=== PATIENT | male | born 1965 | race Caucasian/White ===

== ENCOUNTER → 2020-06-22 10:10 | Outpatient (REF) | payer OTHER, SELFPAY | LOC: HO.SL 10:10 | PROVIDERS: PCP Internal Medicine Medical Oncology; Visit Provider Internal Medicine | DX: G47.33 Obstructive sleep apnea (adult) (pediatric) (principal) | CPT/HCPCS: 95806 ==

== ENCOUNTER → 2020-07-12 13:04 | Outpatient (BNVA) | payer OTHER, SELFPAY | PROVIDERS: PCP Internal Medicine Medical Oncology; Visit Provider Dietitian, Registered | DX: Z76.89 Persons encountering health services in other specified circumstances (principal) ==

== ENCOUNTER → 2020-07-14 10:46 | Outpatient (BNVA) | payer OTHER, SELFPAY | PROVIDERS: Visit Provider Internal Medicine | DX: F11.20 Opioid dependence, uncomplicated (principal) | CPT/HCPCS: 80305 ==

== ENCOUNTER → 2020-08-09 08:19 | Outpatient (BNVA) | payer OTHER, SELFPAY | PROVIDERS: Visit Provider Dietitian, Registered | DX: Z76.89 Persons encountering health services in other specified circumstances (principal) ==

== ENCOUNTER → 2020-08-10 11:34 | Outpatient (BNVA) | payer OTHER, SELFPAY | PROVIDERS: Visit Provider Physician Assistant | DX: Z76.89 Persons encountering health services in other specified circumstances (principal) ==

== ENCOUNTER → 2020-08-11 11:03 | Outpatient (BNVA) | payer OTHER, SELFPAY | PROVIDERS: Visit Provider Internal Medicine | DX: Z76.89 Persons encountering health services in other specified circumstances (principal) ==

== ENCOUNTER → 2020-08-30 08:41 | Outpatient (BNVA) | payer OTHER, SELFPAY | PROVIDERS: PCP Internal Medicine Medical Oncology; Referring Provider Internal Medicine Medical Oncology; Visit Provider Physician Assistant | DX: Z76.89 Persons encountering health services in other specified circumstances (principal) ==

== ENCOUNTER → 2020-09-01 13:47 | Outpatient (BNVA) | payer OTHER, SELFPAY | PROVIDERS: PCP Internal Medicine Medical Oncology; Visit Provider Physician Assistant | DX: Z76.89 Persons encountering health services in other specified circumstances (principal) ==

== ENCOUNTER → 2020-09-08 08:20 | Outpatient (BNVA) | payer OTHER, SELFPAY | PROVIDERS: Visit Provider Physician Assistant | DX: Z76.89 Persons encountering health services in other specified circumstances (principal) ==

== ENCOUNTER → 2020-10-06 10:57 | Outpatient (BNVA) | payer OTHER, SELFPAY | PROVIDERS: Visit Provider Internal Medicine | DX: F11.99 Opioid use, unspecified with unspecified opioid-induced disorder (principal) ==

== ENCOUNTER → 2020-10-11 08:25 | Outpatient (BNVA) | payer OTHER, SELFPAY | PROVIDERS: Visit Provider Dietitian, Registered ==

== ENCOUNTER → 2020-11-02 08:22 | Outpatient (BNVA) | payer OTHER, SELFPAY | PROVIDERS: Visit Provider Physician Assistant ==

== ENCOUNTER → 2020-11-03 10:55 | Outpatient (BNVA) | payer OTHER, SELFPAY | PROVIDERS: PCP Internal Medicine Medical Oncology; Visit Provider Internal Medicine | DX: F11.99 Opioid use, unspecified with unspecified opioid-induced disorder (principal) ==

== ENCOUNTER → 2020-11-08 08:54 | Outpatient (BNVA) | payer OTHER, SELFPAY | PROVIDERS: PCP Internal Medicine Medical Oncology; Visit Provider Dietitian, Registered ==

== ENCOUNTER → 2020-11-12 08:28 | Outpatient (BNVA) | payer OTHER, SELFPAY | PROVIDERS: PCP Internal Medicine Medical Oncology; Visit Provider Physician Assistant ==

== ENCOUNTER → 2020-12-01 11:10 | Outpatient (BNVA) | payer OTHER, SELFPAY | PROVIDERS: PCP Internal Medicine Medical Oncology; Visit Provider Internal Medicine ==

== ENCOUNTER → 2020-12-31 10:57 | Outpatient (BNVA) | payer OTHER, SELFPAY | PROVIDERS: PCP Internal Medicine Medical Oncology; Visit Provider Internal Medicine | DX: Z51.81 Encounter for therapeutic drug level monitoring (principal) | CPT/HCPCS: 80305 ==

== ENCOUNTER → 2021-01-28 11:01 | Outpatient (BNVA) | payer OTHER, SELFPAY | PROVIDERS: PCP Internal Medicine Medical Oncology; Visit Provider Internal Medicine | DX: Z51.81 Encounter for therapeutic drug level monitoring (principal) | CPT/HCPCS: 80305 ==

== ENCOUNTER → 2021-02-03 10:40 | Outpatient (BNVA) | payer OTHER, SELFPAY | PROVIDERS: PCP Internal Medicine Medical Oncology; Visit Provider Surgery ==

== ENCOUNTER → 2021-02-25 09:37 | Outpatient (BNVA) | payer OTHER, SELFPAY | PROVIDERS: PCP Internal Medicine Medical Oncology; Visit Provider Internal Medicine ==

== ENCOUNTER → 2021-03-15 12:33 | Outpatient (BNVA) | payer OTHER, SELFPAY | PROVIDERS: PCP Internal Medicine Medical Oncology; Visit Provider Physician Assistant ==

== ENCOUNTER → 2021-03-28 11:34 | Outpatient (BNVA) | payer OTHER, SELFPAY | PROVIDERS: PCP Internal Medicine Medical Oncology; Visit Provider Internal Medicine | DX: F11.99 Opioid use, unspecified with unspecified opioid-induced disorder (principal) | CPT/HCPCS: 80305 ==

== ENCOUNTER 2021-03-29 14:29 | Outpatient (REF) | payer OTHER, SELFPAY ==
[2021-03-30 13:51] LABS: H Pylori Breath Test NOT DETECTED (NOT DETECTED)
== END 2021-03-29 14:30 | disposition home or self-care (01) ==
LOC: HO.LNP 14:29
PROVIDERS: PCP Internal Medicine Medical Oncology; Visit Provider Surgery
DX: Z01.818 Encounter for other preprocedural examination (principal); E66.01 Morbid (severe) obesity due to excess calories; Z68.42 Body mass index [BMI] 45.0-49.9, adult; Z71.3 Dietary counseling and surveillance
CPT/HCPCS: 83013

== ENCOUNTER → 2021-04-14 12:33 | Outpatient (BNVA) | payer OTHER, SELFPAY | PROVIDERS: PCP Internal Medicine Medical Oncology; Visit Provider Physician Assistant ==

== ENCOUNTER → 2021-04-25 11:56 | Outpatient (BNVA) | payer OTHER, SELFPAY | PROVIDERS: PCP Internal Medicine Medical Oncology; Visit Provider Internal Medicine | DX: F11.99 Opioid use, unspecified with unspecified opioid-induced disorder (principal) | CPT/HCPCS: 80305 ==

== ENCOUNTER → 2021-04-26 13:50 | Outpatient (BNVA) | payer OTHER, SELFPAY | PROVIDERS: PCP Internal Medicine Medical Oncology; Visit Provider Surgery ==

== ENCOUNTER 2021-05-09 10:02 | Outpatient (REF) | payer OTHER, SELFPAY ==
--- NOTE | ~2021-05-09 | XR_ITS ---
EXAMINATION: XR CHEST CLINICAL INFORMATION: Shortness of breath. COMPARISON: 09/02/2014 chest radiographs. TECHNIQUE: 2 views of the chest were obtained. FINDINGS: No significant abnormality is noted involving the heart, lungs, mediastinum, bony thorax or soft tissues. An anteroinferior cervical spine fusion plate appears intact. XR/XR chest 2V IMPRESSION: No acute cardiopulmonary process.
--- NOTE | 2021-05-09 10:45 | ECG_ITS ---
Test Reason : SOB Blood Pressure : / mmHG Vent. Rate : 051 BPM Atrial Rate : 051 BPM P-R Int : 192 ms QRS Dur : 110 ms QT Int : 456 ms P-R-T Axes : 042 024 007 degrees QTc Int : 420 ms Sinus bradycardia Otherwise normal ECG When compared with ECG of 02-SEP-2014 23:03, Vent. rate has decreased BY 25 BPM Referred By: Aurora Sosa Electronically Signed By:GLENDA RAND
[2021-05-09 11:31] LABS: MANUAL DIFF FLAG NO
[2021-05-09 11:44] LABS: Basophils Percent Auto 0.4 % (0-2); Eosinophils Absolute Auto 0.2 X10*3/uL (0.0-0.4); Hematocrit 37.9 % (42-52); Imm Gran Abs Auto 0.02 X10*3/uL (0.00-0.03); Imm Gran Pct Auto 0.4 % (0.0-0.4); Lymphocytes Absolute Auto 1.2 X10*3/uL (1.2-4.9); Lymphocytes Percent Auto 23.4 % (20-40); Mean Corpuscular HGB Conc 31.7 g/dl (31.0-36.0); Mean Corpuscular Hemoglobin 26.8 pg (27.0-33.0); Mean Corpuscular Volume 84.8 fL (80-98); Mean Platelet Volume 10.2 fL (9.4-12.4); Monocytes Absolute Auto 0.4 X10*3/uL (0.1-1.2); Monocytes Percent Auto 7.5 % (2-11); Neutrophils Absolute Auto 3.4 X10*3/uL (2.0-8.3); Neutrophils Percent Auto 64.3 % (45-73); Platelet Count 210 X10*3/uL (160-400); Red Blood Count 4.47 X10*6/uL (4.60-5.80); Red Cell Distribution Width 14.1 % (11.0-16.0); White Blood Count 5.2 X10*3/uL (4.8-10.8)
[2021-05-09 11:59] LABS: Alanine Aminotransferase 9 U/L (0-40); Albumin Level 4.2 g/dL (3.5-5.0); Alkaline Phosphatase 55 U/L (39-117); Anion Gap 14 (12-20); Aspartate Amino Transferase 13 U/L (5-37); Bilirubin Total 0.5 mg/dL (0.0-1.0); Blood Urea Nitrogen 18 mg/dL (9-16); C Reactive Protein 0.63 mg/dL (< or = 0.50); Calcium 9.5 mg/dL (8.4-10.2); Carbon Dioxide 27 mmol/L (22-29); Chloride 102 mmol/L (96-108); Cholesterol 172 mg/dL; Estimated Average Glucose 157 mg/dL; Estimated Glomerular Filt Rate > 60; Glucose Fasting 128 mg/dL (60-99); HDL Cholesterol 31 mg/dL; Hemoglobin A1c % 7.1 %; Iron 52 mcg/dL (45-160); LDL Cholesterol Calculated 114 mg/dl; Potassium 4.8 mmol/L (3.3-5.1); Sodium 138 mmol/L (135-145); Total Protein 6.9 g/dL (6.5-8.0); Triglycerides 135 mg/dL
[2021-05-09 12:15] LABS: Thyroid Stimulating Hormone 2.27 uIU/mL (0.32-4.0)
[2021-05-09 12:33] LABS: Vitamin B12 < 146 pg/mL (200-900)
[2021-05-10 16:11] LABS: Calcium (PTHI) 9.4 mg/dL (8.6-10.3); PTHI 69 pg/mL (14-64)
[2021-05-11 15:09] LABS: Percent Iron Saturation 16 % (15-50); Total Iron Binding Capacity 332 mcg/dL (228-428); Unsaturated Iron Binding 280 ug/dL
[2021-05-11 23:10] LABS: Zinc 70 mcg/dL (60-130)
[2021-05-14 00:41] LABS: Vitamin A 39 mcg/dL (38-98)
[2021-05-14 12:31] LABS: Vitamin B1 <6 nmol/L (8-30)
== END 2021-05-09 10:03 | disposition home or self-care (01) ==
LOC: HO.LAB 10:02
PROVIDERS: PCP Internal Medicine Medical Oncology; Visit Provider Surgery
DX: Z01.818 Encounter for other preprocedural examination (principal); E66.01 Morbid (severe) obesity due to excess calories; K91.2 Postsurgical malabsorption, not elsewhere classified; R06.02 Shortness of breath; G47.33 Obstructive sleep apnea (adult) (pediatric); Z91.14 Patient's other noncompliance with medication regimen; Z90.3 Acquired absence of stomach [part of]
CPT/HCPCS: 36415; 71046; 80053; 80061; 82306; 82607; 83036; 83540; 83970; 84425; 84443; 84590; 84630; 85025; 86140; 93005

== ENCOUNTER → 2021-05-31 12:57 | Outpatient (BNVA) | payer OTHER, SELFPAY | PROVIDERS: PCP Internal Medicine Medical Oncology; Referring Provider Internal Medicine Medical Oncology; Visit Provider Surgery | DX: Z01.818 Encounter for other preprocedural examination (principal); E51.9 Thiamine deficiency, unspecified; E55.9 Vitamin D deficiency, unspecified ==

== ENCOUNTER 2021-06-20 10:59 | Outpatient (REF) | payer OTHER, SELFPAY ==
[2021-06-20 18:38] LABS: Fentanyl, urine Not Detected (Not Detect)
== END 2021-06-20 11:00 | disposition home or self-care (01) ==
LOC: HO.LNP 10:59
PROVIDERS: Visit Provider Internal Medicine
DX: F11.20 Opioid dependence, uncomplicated (principal); Z79.899 Other long term (current) drug therapy
CPT/HCPCS: 80307

== ENCOUNTER → 2021-07-06 10:57 | Outpatient (BNVA) | payer OTHER, SELFPAY | PROVIDERS: Visit Provider Internal Medicine | DX: E66.01 Morbid (severe) obesity due to excess calories (principal); G47.33 Obstructive sleep apnea (adult) (pediatric); F11.90 Opioid use, unspecified, uncomplicated | CPT/HCPCS: 80305 ==

== ENCOUNTER → 2021-09-07 10:29 | Outpatient (BNVA) | payer OTHER, SELFPAY | PROVIDERS: PCP Internal Medicine Medical Oncology; Visit Provider Internal Medicine | DX: F11.20 Opioid dependence, uncomplicated (principal); Z51.81 Encounter for therapeutic drug level monitoring; Z79.899 Other long term (current) drug therapy | CPT/HCPCS: 80305 ==

== ENCOUNTER 2021-10-04 14:09 | Outpatient (REF) | payer OTHER, SELFPAY ==
[2021-10-04 16:24] LABS: Vitamin D 25-OH Total 20.7 ng/mL (>30)
[2021-10-09 06:16] LABS: Vitamin B1 6 nmol/L (8-30)
== END 2021-10-04 14:10 | disposition home or self-care (01) ==
LOC: HO.LAB 14:09
PROVIDERS: Absent Provider Surgery; PCP Internal Medicine Medical Oncology; Visit Provider Internal Medicine
DX: Z01.818 Encounter for other preprocedural examination (principal); E66.01 Morbid (severe) obesity due to excess calories; G47.33 Obstructive sleep apnea (adult) (pediatric); E55.9 Vitamin D deficiency, unspecified; E51.9 Thiamine deficiency, unspecified; Z79.899 Other long term (current) drug therapy; Z87.891 Personal history of nicotine dependence; Z91.14 Patient's other noncompliance with medication regimen
CPT/HCPCS: 36415; 82306; 84425

== ENCOUNTER → 2021-10-26 10:52 | Outpatient (BNVA) | payer OTHER, SELFPAY | PROVIDERS: PCP Internal Medicine Medical Oncology; Visit Provider Physician Assistant Surgical ==

== ENCOUNTER → 2021-11-08 15:48 | Outpatient (BNVA) | payer OTHER, SELFPAY | PROVIDERS: PCP Internal Medicine Medical Oncology; Visit Provider Internal Medicine | DX: F11.11 Opioid abuse, in remission (principal); Z51.81 Encounter for therapeutic drug level monitoring; Z79.899 Other long term (current) drug therapy | CPT/HCPCS: 80305 ==

== ENCOUNTER → 2021-11-28 09:01 | Outpatient (BNVA) | payer OTHER, SELFPAY | PROVIDERS: PCP Internal Medicine Medical Oncology; Visit Provider Surgery | DX: E66.01 Morbid (severe) obesity due to excess calories (principal); E55.9 Vitamin D deficiency, unspecified; R60.0 Localized edema; G47.33 Obstructive sleep apnea (adult) (pediatric); Z79.899 Other long term (current) drug therapy; Z71.3 Dietary counseling and surveillance; Z87.891 Personal history of nicotine dependence | CPT/HCPCS: 99212 ==

== ENCOUNTER 2021-12-12 08:56 | Outpatient (REF) | payer OTHER, SELFPAY ==
--- NOTE | ~2021-12-12 | FL_ITS ---
PROCEDURE: XR FLUOROSCOPY UPPER GI WITH AIR CLINICAL INFORMATION: Thiamine deficiency. COMPARISON: None TECHNIQUE: Routine upper GI air-contrast study was performed in upright and lying position. FINDINGS: Following oral administration of thick barium and effervescent granules there is normal propagation of bolus from the oral cavity through the pharynx, esophagus into stomach without any evidence of obstruction, narrowing or stricture. On placing patient supine and prone lying, the course, caliber and peristalsis of the stomach, duodenal bulb and the sweep is normal. The mucosal pattern of the stomach and the duodenum is normal. No gastroesophageal reflux or hiatal hernia seen. FLUOROSCOPY TIME: 1.2 minutes. DOSE AREA PRODUCT: 45.911 uGy-m2 (microgray-meter squared). FL/FL upper GI w air IMPRESSION: Unremarkable upper GI air-contrast study.
--- NOTE | ~2021-12-12 | US_ITS ---
EXAMINATION: US COMPLETE ABDOMEN WITH LIVER ELASTOGRAPHY CLINICAL INFORMATION: Obesity. COMPARISON: None. TECHNIQUE: Real-time imaging of the abdominal viscera. Noninvasive ultrasound liver fibrosis assessment is performed using Jonathan ElastPQ point quantification shear wave elastography (2D-SWE) with a C5-2 MHz transducer. Multiple elastography samples are obtained. FINDINGS: PANCREAS: The pancreas is obscured overlying gas. ABDOMINAL AORTA: The distal abdominal aorta is of normal caliber. The proximal and mid abdominal aorta are not well-visualized. INFERIOR VENA CAVA: Visualized portions are normal. LIVER: Normal. The liver demonstrates normal size, contour and increased echogenicity. No focal lesion or intrahepatic biliary duct dilatation. The right lobe measures 1.79 cm in length. The left lobe measures 11.8 cm in length. Portal flow is hepatopedal. Shear wave liver elastography median stiffness is 3.54 m/s (reference: normal median stiffness is 1.3 m/s or less). IQR/median stiffness to assess sampling precision is 0.47 (reference: good quality data set is IQR/median stiffness of 0.15 or less). GALLBLADDER: Gallbladder wall thickness is 0.23. The gallbladder is physiologically distended without evidence of stones, sludge, polyps, wall thickening or pericholecystic fluid. COMMON BILE DUCT: Normal in caliber measuring 0.35 cm in diameter. RIGHT KIDNEY: Normal. No hydronephrosis. No renal calculi or focal parenchymal lesions. The kidney measures 13.7 cm in maximum dimension. LEFT KIDNEY: Normal. No hydronephrosis. No renal calculi or focal parenchymal lesions. The kidney measures 12.4 cm in maximum dimension. SPLEEN: Normal. The spleen measures 11.3 cm in maximum dimension. FREE FLUID: None. US/US abdomen comp w elastography IMPRESSION: 1. Mildly increased hepatic echotexture. No focal lesion seen. Rest of the abdominal ultrasound is unremarkable. 2. Liver elastography: Elevated median liver stiffness of 3.54. However the IQR median is elevated and unreliable. REFERENCE: Society of Radiologists in Ultrasound Liver Stiffness Thresholds (2020): LIVER STIFFNESS THRESHOLDS: *Liver Stiffness equal or less than 1.3 m/s: High probability of being normal. *Liver Stiffness less than 1.7 m/s: In the absence of other known clinical signs, rules out compensated advanced chronic liver disease. *Liver Stiffness 1.7-2.1 m/s: Suggestive of compensated advanced chronic liver disease but need further test for confirmation. *Liver Stiffness over 2.1 m/s: Rules in compensated advanced chronic liver disease. *Liver Stiffness over 2.4 m/s: Suggestive of clinically significant portal hypertension. QUALITY OF DATA SET: *IQR/Median value equal or less than 0.15 implies a quality data set. *IQR/Median value over 0.15 implies a poor quality data set. SIGNIFICANT CHANGE FROM PRIOR EXAM: Significant change if liver stiffness measurement is 10% or greater from prior exam. OTHER CONSIDERATIONS: The stage of liver fibrosis may be overestimated in the setting of acute hepatitis, liver inflammation, elevated liver function tests, hepatic vascular congestion, obstructive cholestasis, non-fasting state, and infiltrative diseases such as amyloidosis and lymphoma. In some patients with NAFLD, the liver stiffness thresholds for compensated advanced chronic liver disease may be lower. In causes other than viral hepatitis and NAFLD, liver stiffness thresholds are not well established.
== END 2021-12-12 08:57 | disposition home or self-care (01) ==
LOC: HO.US 08:56
PROVIDERS: Visit Provider Surgery
DX: Z01.818 Encounter for other preprocedural examination (principal); E51.9 Thiamine deficiency, unspecified; E55.9 Vitamin D deficiency, unspecified; E66.01 Morbid (severe) obesity due to excess calories; E11.9 Type 2 diabetes mellitus without complications; E78.5 Hyperlipidemia, unspecified; G47.33 Obstructive sleep apnea (adult) (pediatric); I10 Essential (primary) hypertension; K21.9 Gastro-esophageal reflux disease without esophagitis; Z68.41 Body mass index [BMI] 40.0-44.9, adult; Z79.899 Other long term (current) drug therapy; Z87.891 Personal history of nicotine dependence
CPT/HCPCS: 74246; 76705; 76981

== ENCOUNTER 2021-12-13 10:27 | Outpatient (REF) | payer OTHER, SELFPAY ==
[2021-12-13 11:45] LABS: MANUAL DIFF FLAG NO
[2021-12-13 11:59] LABS: Basophils Absolute Auto 0.1 X10*3/uL (0.0-0.2); Basophils Percent Auto 0.9 % (0-2); Eosinophils Absolute Auto 0.2 X10*3/uL (0.0-0.4); Eosinophils Percent Auto 3.4 % (0-4); Hematocrit 38.8 % (42.0-52.0); Hemoglobin 12.5 g/dl (14.0-18.0); Imm Gran Abs Auto 0.02 X10*3/uL (0.00-0.03); Imm Gran Pct Auto 0.4 % (0.0-0.4); Lymphocytes Percent Auto 17.7 % (20-40); Mean Corpuscular HGB Conc 32.2 g/dl (31.0-36.0); Mean Corpuscular Hemoglobin 27.7 pg (27.0-33.0); Mean Platelet Volume 9.7 fL (9.4-12.4); Monocytes Absolute Auto 0.5 X10*3/uL (0.1-1.2); Monocytes Percent Auto 8.3 % (2-11); Neutrophils Absolute Auto 3.8 x10*3/uL (2.0-8.3); Neutrophils Percent Auto 69.3 % (45-73); Platelet Count 236 X10*3/uL (160-400); Red Blood Count 4.51 X10*6/uL (4.60-5.80); Red Cell Distribution Width 12.8 % (11.0-16.0); White Blood Count 5.5 X10*3/uL (4.8-10.8)
[2021-12-13 12:12] LABS: Prothrombin Time 11.5 SEC (9.9-13.0)
[2021-12-13 12:14] LABS: Partial Thromboplastin Time 37.5 SEC (24.1-38.0)
[2021-12-13 12:20] LABS: Estimated Average Glucose 157 mg/dL; Hemoglobin A1c % 7.1 %
[2021-12-13 12:27] LABS: Alanine Aminotransferase 11 U/L (0-40); Albumin Level 4.4 g/dL (3.5-5.0); Alkaline Phosphatase 51 U/L (39-117); Anion Gap 13 (12-20); Aspartate Amino Transferase 14 U/L (5-37); Bilirubin Total 0.9 mg/dL (0.0-1.0); Blood Urea Nitrogen 16 mg/dL (9-16); Calcium 9.7 mg/dL (8.4-10.2); Carbon Dioxide 28 mmol/L (22-29); Chloride 100 mmol/L (96-108); Cholesterol 180 mg/dL; Estimated Glomerular Filt Rate > 60; Glucose Random 200 mg/dL (60-115); HDL Cholesterol 37 mg/dL; LDL Cholesterol Calculated 121 mg/dl; Potassium 4.6 mmol/L (3.3-5.1); Sodium 136 mmol/L (135-145); Total Protein 7.1 g/dL (6.5-8.0); Triglycerides 110 mg/dL
[2021-12-13 12:48] LABS: Vitamin D 25-OH Total 38.2 ng/mL (>30)
[2021-12-13 12:54] LABS: TSH reflex Free T4 1.35 uIU/mL (0.32-4.0)
[2021-12-13 13:03] LABS: Folate 13.4 ng/mL (> or = 4.0); Vitamin B12 < 146 pg/mL (200-900)
[2021-12-13 16:41] LABS: Insulin 14 uU/mL (2-29)
[2021-12-19 11:56] LABS: Vitamin B1 7 nmol/L (8-30)
[2021-12-20 00:57] LABS: Vitamin A 62 mcg/dL (38-98)
== END 2021-12-13 10:28 | disposition home or self-care (01) ==
LOC: HO.LAB 10:27
PROVIDERS: Physician Assistant Surgical; PCP Internal Medicine Medical Oncology; Referring Provider Internal Medicine Medical Oncology; Visit Provider Surgery
DX: I10 Essential (primary) hypertension (principal); E66.01 Morbid (severe) obesity due to excess calories; G47.33 Obstructive sleep apnea (adult) (pediatric); E11.9 Type 2 diabetes mellitus without complications; E78.5 Hyperlipidemia, unspecified; E51.9 Thiamine deficiency, unspecified; E55.9 Vitamin D deficiency, unspecified; Z68.41 Body mass index [BMI] 40.0-44.9, adult
CPT/HCPCS: 36415; 80053; 80061; 82306; 82607; 82746; 83036; 83525; 84425; 84443; 84590; 85025; 85610; 85730; 86140

== ENCOUNTER 2021-12-20 06:11 | Inpatient (IN) | payer OTHER, SELFPAY ==
[2021-12-15 10:05] VITALS: BMI 40.4
--- NOTE | 2021-12-15 13:09 | HO.ANESPROP2 ---
Documented by User: Doretha Williamson NP 12/15/21 13:13 HPI - Anesthesia Eval Consult details Narrative: 56yo M for Gastrectomy Sleeve,EGD,poss diaphragmatic hernia,poss ventral hernia,poss open, Suboxone (24mg) daily for hx of OUD. Pt awaiting dosing instructions from Dr Poe. [facility] Active Problems Active Problems: All Active Problems (Updated 12/15/21 @ 10:04 by Brandee Courtney, SHENG) BMI 40.0-44.9, adult (Acute) Shortness of breath (Acute) Preoperative examination (Acute) Vitamin D deficiency (Acute) Vitamin B1 deficiency (Acute) Morbid obesity with BMI of 40.0-44.9, adult (Acute) Major depression, chronic (Acute) Opioid use disorder, mild, in sustained remission, on maintenance therapy, abuse (Acute) Lower extremity edema (Acute) Hyperlipidemia (Acute) Hypertension (Acute) Benign prostatic hyperplasia (Acute) Depression (Acute) Migraine (Acute) Type 2 diabetes mellitus (Acute) Noncompliance with CPAP treatment (Acute) Morbid obesity (Acute) BMI 45.0-49.9, adult (Acute) AUDRA (obstructive sleep apnea) (Acute) Past Medical History Medical History (Updated 12/15/21 @ 10:04 by Brandee Courtney RN) Anxiety Benign prostatic hyperplasia BMI 45.0-49.9, adult DDD (degenerative disc disease), cervical Depression Hyperlipidemia Hypertension Lower extremity edema Migraine Morbid obesity Noncompliance with CPAP treatment Occasional tremors AUDRA (obstructive sleep apnea) Shortness of breath Type 2 diabetes mellitus Family History Family History (Updated 11/23/21 @ 10:22 by Mercedes Shaw LPN) Father Diabetes Mother Diabetes Sister No problems noted. Sister Depression Sister No problems noted. Son No problems noted. Son No problems noted. Daughter No problems noted. Surgical History Surgical History (Updated 12/15/21 @ 10:04 by Brandee Courtney RN) History of colonoscopy Hx of knee surgery Hx of neck surgery Hx of shoulder surgery S/P appendectomy Social History Social History (Updated 11/23/21 @ 10:19 by Mercedes Shaw LPN) Are you a primary animal care worker to a significant other at home: No Do you presently have visiting nurse or other home services: No Alcohol intake: current Alcohol intake frequency: does not drink Patient Tobacco Use Status: Former Tobacco user Quit Date: 2016 Tobacco use type: Cigarette e-Cigarette/Vaping Use: Currently Using Have you been hit, kicked, punched, or otherwise hurt by someone within the past year? If so, by whom?: No Are you DNR?: No Advance Directives: No Advance Directives Information Provided: Yes Advance Directives on File: No Recently lost weight without trying: No Poor oral hygiene: No Meds Allergies Allergy/AdvReac Type Severity Reaction Status Date / Time Seasonal Allergies Allergy Intermediate Runny Nose Verified 12/12/21 11:40 Home Medications Medication Instructions Recorded Confirmed Last Taken Type blood sugar diagnostic #10 ea 07/14/20 12/12/21 Unknown History blood-glucose meter #1 ea 07/14/20 12/12/21 Unknown History citalopram 40 mg tablet 40 mg PO DAILY 07/14/20 12/15/21 12/20/21 04:00 History glyburide 5 mg tablet 5 mg PO BID 07/14/20 12/15/21 Unknown History lamotrigine 100 mg tablet 100 mg PO DAILY 07/14/20 12/15/21 12/20/21 04:00 History lisinopril 2.5 mg tablet 2.5 mg PO DAILY 07/14/20 12/15/21 12/20/21 04:00 History metoprolol succinate 100 mg 100 mg PO DAILY 07/14/20 12/15/21 12/20/21 04:00 History tablet,extended release 24 hr simvastatin 20 mg tablet 20 mg PO DAILY 07/14/20 12/15/21 12/20/21 04:00 History tamsulosin 0.4 mg capsule 0.4 mg PO DAILY 07/14/20 12/15/21 Unknown History bupropion HCl 150 mg 24 hr tablet, 450 mg PO DAILY tab 02/03/21 12/15/21 Unknown History extended release metformin 500 mg tablet 1,000 mg PO BID tab 02/03/21 12/15/21 Unknown History sumatriptan succinate 100 mg tablet 100 mg PO Q2-4H PRN 02/03/21 12/15/21 Unknown History Exam Exam Date and Time: December 15, 2021 1309 Height,Weight and Vital Signs: Height 5 ft 11 in Weight 131.542 kg Pertinent Lab Results Pertinent Lab Results: Laboratory Tests 12/13/21 11:40 Blood Type O Positive Antibody Screen NEGATIVE Laboratory Tests 12/13/21 12/13/21 11:44 11:44 WBC 5.5 Hgb 12.5 L Hct 38.8 L Plt Count 236 Sodium 136 Potassium 4.6 Chloride 100 Carbon Dioxide 28 BUN 16 Creatinine 0.93 Narrative Narrative: EKG 04/2021 Vent. Rate : 051 BPM ? ? Atrial Rate : 051 BPM ?? P-R Int : 192 ms? QRS Dur : 110 ms ? ? QT Int : 456 ms ? ? ? P-R-T Axes : 042 024 007 degrees ?? QTc Int : 420 ms ? Sinus bradycardia Otherwise normal ECG When compared with ECG of 02-SEP-2014 23:03, Vent. rate has decreased BY? 25 BPM Assessment and Plan Assessment Anesthesia Assessment: Chart Reviewed Documented by User: Inocente Marks MD 12/20/21 07:11 [facility] Past Medical History Medical History (Updated 12/15/21 @ 10:04 by Brandee Courtney RN) Anxiety Benign prostatic hyperplasia BMI 45.0-49.9, adult DDD (degenerative disc disease), cervical Depression Hyperlipidemia Hypertension Lower extremity edema Migraine Morbid obesity Noncompliance with CPAP treatment Occasional tremors AUDRA (obstructive sleep apnea) Shortness of breath Type 2 diabetes mellitus Family History Family History (Updated 11/23/21 @ 10:22 by Mercedes Shaw LPN) Father Diabetes Mother Diabetes Sister No problems noted. Sister Depression Sister No problems noted. Son No problems noted. Son No problems noted. Daughter No problems noted. Family history of problems with anesthesia: No Surgical History Surgical History (Updated 12/15/21 @ 10:04 by Brandee Courtney RN) History of colonoscopy Hx of knee surgery Hx of neck surgery Hx of shoulder surgery S/P appendectomy History of Problems with Anesthesia: No Social History Social History (Updated 11/23/21 @ 10:19 by Mercedes Shaw LPN) Are you a primary animal care worker to a significant other at home: No Do you presently have visiting nurse or other home services: No Alcohol intake: current Alcohol intake frequency: does not drink Patient Tobacco Use Status: Former Tobacco user Quit Date: 2016 Tobacco use type: Cigarette e-Cigarette/Vaping Use: Currently Using Have you been hit, kicked, punched, or otherwise hurt by someone within the past year? If so, by whom?: No Are you DNR?: No Advance Directives: No Advance Directives Information Provided: Yes Advance Directives on File: No Recently lost weight without trying: No Poor oral hygiene: No Meds Allergies Allergy/AdvReac Type Severity Reaction Status Date / Time Seasonal Allergies Allergy Intermediate Runny Nose Verified 12/12/21 11:40 Home Medications Medication Instructions Recorded Confirmed Last Taken Type blood sugar diagnostic #10 ea 07/14/20 12/12/21 Unknown History blood-glucose meter #1 ea 07/14/20 12/12/21 Unknown History citalopram 40 mg tablet 40 mg PO DAILY 07/14/20 12/15/21 12/20/21 04:00 History glyburide 5 mg tablet 5 mg PO BID 07/14/20 12/15/21 Unknown History lamotrigine 100 mg tablet 100 mg PO DAILY 07/14/20 12/15/21 12/20/21 04:00 History lisinopril 2.5 mg tablet 2.5 mg PO DAILY 07/14/20 12/15/21 12/20/21 04:00 History metoprolol succinate 100 mg 100 mg PO DAILY 07/14/20 12/15/21 12/20/21 04:00 History tablet,extended release 24 hr simvastatin 20 mg tablet 20 mg PO DAILY 07/14/20 12/15/21 12/20/21 04:00 History tamsulosin 0.4 mg capsule 0.4 mg PO DAILY 07/14/20 12/15/21 Unknown History bupropion HCl 150 mg 24 hr tablet, 450 mg PO DAILY tab 02/03/21 12/15/21 Unknown History extended release metformin 500 mg tablet 1,000 mg PO BID tab 02/03/21 12/15/21 Unknown History sumatriptan succinate 100 mg tablet 100 mg PO Q2-4H PRN 02/03/21 12/15/21 Unknown History Exam Airway Mallampati Class: III TM Dist: >3cm Neck ROM: Full Loose/Missing/Broken Teeth: No (no losse but poor dentition) Heart: rrr+[id number] Lungs: cta b/l Assessment and Plan Assessment Anesthesia Assessment: Anesthesia Plan Discussed Final Anesthetic Review Family History of Problems with Anesthesia: No History of Problems with Anesthesia: No NPO: Yes ASA Class: III Final Preanesthetic Review: No Changes in Pt Med Stat, Meds/Allgs Chart Reviewed, Consent Obtained/Reviewed and Anes Risks/Benef Reviewed Patient Risk: Intermediate Procedure Risk: Intermediate Assessment/Block/Sedation in SS: Assess/Block/Sedation-SS Anesthetic Plan Anesthetic Plan: GA and Agree w/ Assess. and Plan Disposition: Standard PACU
--- NOTE | 2021-12-16 23:40 | MHC.SHP ---
Pre-Procedural Eval Section A Date of Service: 12/16/21 The patient is an INPATIENT: No The History & Physical has been completed within 30 days and I have reviewed it.: Yes Section B Chief Complaint: obesity Relevant Family History (Specify if Yes): No Relevant Social History: None Present Medications: None Medical History: No relevant PMH Allergies: Allergies Allergy/AdvReac Type Severity Reaction Status Date / Time Seasonal Allergies Allergy Intermediate Runny Nose Verified 12/12/21 11:40 Review of Systems Sugical H&P ROS: Negative: Constitution, Cardiovascular, Respiratory, Neurological, Psychiatric, Hem-Onc, Allergic/Immunologic, Gastrointestinal, Genitourinary, Musculoskeletal, Integumentary, Endocrine and Eyes/Ears/Nose/Throat Exam Surgical H&P Exam: Normal: HEENT, Normal: Heart, Normal: Lungs, Normal: Extremities, Normal: Abdomen, Normal: Skin and Normal: Neurological Plan Diagnosis/Plan: Unchanged I have reviewed the history and physical and performed a pertinent physical examination on my patient. No changes have occurred unless specified.
[2021-12-19 16:38] LABS: COVID-19 Test Negative (Negative); IDNOW Serial# 16C4AD1C
[2021-12-20] VITALS (21 sets, daily range): BP systolic 111–164; BP diastolic 63–91; PULSE 67–97; RESP 13–22; TEMP 36.1–36.9; O2SAT 92–99
[2021-12-20 06:21] LABS: Glucose, Whole Blood 168 mg/dL (60-115)
[2021-12-20] MEDS: Lactated Ringers 1,000 ML 100 ML IVCONT ×2 (06:39→12:16)
[2021-12-20] MEDS: Lactated Ringers 1,000 ML 999 ML IV (06:39)
[2021-12-20] MEDS: ceFAZolin Sodium/Dextrose,Iso 2 GM/50 ML PIGGYBACK IV ×2 (08:01→14:14)
--- NOTE | 2021-12-20 10:28 | P.DS_ITS ---
DS: Providers Provider Date of Service: 12/21/21 Date of admission: 12/20/21 06:11 Primary care physician: Azael Benton MD DS: Summary Hospital Course Hospital Course: ADMITTING DIAGNOSIS: morbid obesity, HTN, AUDRA, DM, hyperlipidemia, migraines, hx of opiod dependence DISCHARGE DIAGNOSIS: same, s/p laparoscopic sleeve gastrectomy PAST SURGICAL HISTORY: multiple orthopedic surgeries, appendectomy PROCEDURE: upper endoscopy, laparoscopic sleeve gastrectomy DISCHARGE SUMMARY: History of Present Illness: The patient is a 56 year-old man with a BMI of 45.5 kg/m2 and associated co- morbidities as described above. The patient had extensive work-up,lost 32 lbs preoperatively and was electively scheduled for laparoscopic, possible open sleeve gastrectomy and gastropexy. Risks and complications of the surgery were discussed with the patient in advance, particularly the possibility of , pulmonary embolism, anastomotic leak, bleeding, bowel injury, GERD, cardiac, renal or pulmonary complications. The patient understood all the risks and was in agreement with the surgical plan. Hospital Course: The patient underwent an uneventful laparoscopic sleeve gastrectomy with gastropexy on the day of admission. Postoperatively, the patient was transferred to the surgical floor. The patient received IV Acetaminophen and IV dilaudid for pain control. Patient was started on bariatric phase 1 diet POD #0. On postoperative day one, the patient was feeling well without nausea, vomiting, fevers, or tachycardia. The patient had some mild incisional pain and the abdomen was soft. On the morning of postoperative day one, the patient was continued on 1 ounce of water or ice every half hour. During the day, the patient did fairly well, having some incisional pain, but able to ambulate adequately and to tolerate liquids well. Since the patient is doing well, we decided that the patient was ready to be discharged. The patient was given instructions to follow-up with me next week and to call my office for any fever over 101, persistent abdominal pain, nausea, vomiting, GERD, symptoms of DVT such as calf tenderness, or leg swelling, or pulmonary embolism such as chest pain or shortness of breath. The patient was also instructed to drink 40-60 ounces of liquids per day using the 1-ounce cups. The patient had been given prescriptions for Tylenol for pain, Zofran prn for nausea, and pantoprazole and carafate previously. The patient was encouraged to ambulate and use the incentive spirometer. The patient was allowed to shower, but no baths, and encouraged to stay active at home. All of these instructions were given to the patient personally. All questions were answered and the patient understood all instructions, the instructions were also given to the patient in print. Time Spent with Patient Time attestation: Total time spent providing and/or coordinating discharge services: Discharge coordination time: Less than 30 minutes Quality: Safe Use of Opioids Does Pt have an Active Cancer Diagnosis on the Problem List?: No Quality: Stroke Does the patient have a stroke diagnosis?: No Physical Exam Vital Signs: Vital Signs: Last Vital Signs Temp 97 F 12/20/21 06:16 Pulse 68 12/20/21 06:16 Resp 18 12/20/21 06:16 BP 111/71 12/20/21 06:16 Pulse Ox 94 12/20/21 06:16 BMI result Body Mass Index 40.4 DS: Data Data Completed and Pending Pending studies at discharge: Pending at discharge 12/20/21 09:39 Surgical [PTH] Routine Labs on day of discharge: Laboratory Results - last 24 hr 12/19/21 12/20/21 16:05 06:18 POC Glucose 168 H COVID-19 ([facility]) Negative COVID-19 Clin Com See Note Discharge Plan Discharge Anticipated Discharge Date/Time: 12/21/21 10:23 Patient Disposition: Home, Self-Care Discharge Diagnosis: s/p sleeve gastrectomy Referrals: Azael Benton MD [Primary Care Provider] - 1 Week Discharge Medications: Continued sumatriptan succinate 100 mg tablet 100 mg PO Q2-4H PRN (Reason: Headache) 0RF Rx Instructions: do not exceed 2 doses per 24 hrs metoprolol succinate 100 mg tablet extended release 24 hr 100 mg PO DAILY 0RF lamotrigine 100 mg tablet 100 mg PO DAILY 0RF lisinopril 2.5 mg tablet 2.5 mg PO DAILY 0RF simvastatin 20 mg tablet 20 mg PO DAILY 0RF citalopram 40 mg tablet 40 mg PO DAILY 0RF tamsulosin 0.4 mg capsule 0.4 mg PO DAILY 0RF (DME) blood-glucose meter Kit See Rx Instructions ea .ROUTE .MEDSUPPLY Qty: 1 0RF Rx Instructions: As directed (DME) blood sugar diagnostic Strip See Rx Instructions strip Not Applicable BID Qty: 10 0RF Rx Instructions: As directed bupropion HCl 150 mg tablet extended release 24 hr 450 mg PO DAILY 0RF buprenorphine-naloxone [Suboxone] 8-2 mg film 3 film sublingual DAILY 30 Days Qty: 90 1RF Rx Instructions: JC Number; [id number] pantoprazole 40 mg tablet,delayed release (DR/EC) 40 mg PO DAILY Qty: 30 2RF sucralfate 100 mg/mL suspension 10 ml PO BID Qty: 400 2RF ondansetron HCl 4 mg tablet 4 mg PO Q12H Qty: 20 0RF Held glyburide 5 mg tablet 5 mg PO BID 0RF Hold Instructions: Discuss with Dr Kay metformin 500 mg tablet 1,000 mg PO BID 0RF Hold Instructions: Discuss with Dr Kay hydrochlorothiazide 12.5 mg capsule 12.5 mg PO DAILY Qty: 30 2RF Hold Instructions: Discuss with Dr Kay Discontinued mecobalamin (vitamin B12) 1,000 mcg tablet,disintegrating 1,000 mcg sublingual DAILY Qty: 30 0RF Rx Instructions: place tablet under tongue and allow to dissolve for at least30 secs before swallowing thiamine HCl (vitamin B1) 100 mg tablet 100 mg PO DAILY Qty: 30 0RF cholecalciferol (vitamin D3) 1,250 mcg (50,000 unit) capsule 1,250 mcg PO QWEEK Qty: 4 1RF polyethylene glycol 3350 [Miralax] 17 gram powder in packet 17 g PO DAILY Qty: 14 0RF Rx Instructions: Mix each packet with 8oz of water and do 7 packets on 12/20/21 and another 7 packets on 12/21/21 Discharge Orders: Discharge Order (Routine); Ordered 12/21/21 Ordered By: Vladimir Kay Diet: other Activity on Discharge: No heavy lifting Stand Alone Forms: Patient Portal Discharge page Care Plan Goals: weight loss Health Concerns: morbid obesity Plan of Treatment: No tub baths, sex or returning to work until discussed at first post op appointment. No exercise, alcohol, tobacco or illegal drug use. Continue to use incentive spirometer hourly while awake. Walk in home for 5- 10 minutes every 2 hours during the first week. Continue phase 1 diet today and start phase 2 diet tomorrow morning. Follow all instructions in the bariatric handbook and call with any questions. 1. Please call your doctor or come back to the emergency room should any new symptoms arise. 2. You will receive a courtesy call from [facility] 24-48 hours after discharge. 3. Activity: abstain from alcohol, practice limited stair climbing, no bending, no driving, no exercise, no illicit substances, no lifting, no sex, no tub bath, no work. 4. Diet: continue as discussed with Dr. Kay. 5. Dressing Change/Wound Care: Do not change or remove surgical dressings unless they are wet or soiled. 6. Call your doctor if: - Your temperature exceeds 101.5 F - You experience excessive pain or swelling - You have an unexpected reaction to medication - You have excessive bleeding - You experience continued vomiting/nausea - Your incision begins to separate - Your incision shows signs of infection such as increased redness, swelling, excessive pain, heat, or drainage (light blood or clear fluid is normal) 7. General instructions: No lifting greater than 5 lbs for the next 4 weeks[address] driving within 24 hours of taking narcotic pain medications. If you do not move your bowels in the next 2 days, please take milk of magnesia over the counter. Please follow the post op diet and do not advance your diet until you are seen in the office in about 2 weeks. Please walk around your home every hour or two to prevent blood clots from forming in your legs. You do not need to wake from sleeping to walk. Please sleep in a bed or couch to prevent kinking at the hips and knees. Please take your incentive spirometer (your lung demonstrator electric gas appliances) home with you and use it for the next few days to prevent pneumonias. You may shower, no hot tubs, baths or swimming pools. Please call the office with any questions or concerns such as increasing abdominal pain, fever, chills, shortness of breath, chest pain, leg pain or swelling, or redness or drainage from your incisions. Do not hesitate to contact the office with any questions at . The patient's medical history has been reviewed and they are considered low risk for post op DVT and therefore DVT prophylaxis is not considered necessary. Travel after surgery was reviewed. The patient has not disclosed any travel plans during the first 30 days after surgery and they have been advised that within the first 30 days after surgery any bus, plane, train or car travel over 2 hours in duration is contraindicated due to the possibility of developing blood clots from immobility. Any travel, needs to include periods of ambulation of 10 minutes in duration every 2 hours. The patient was instructed to discuss any plans for travel during this period with their bariatric surgeon. Assessment: stable, post op sleeve gstrectomy
--- NOTE | 2021-12-20 10:32 | P.BOP_ITS ---
Brief Operative Note Date of Service: 12/20/21 Pre-op diagnosis: Morbid obesity and comorbidities (see below) Post-op diagnosis: same Procedure: INITIAL PATIENT BMI ON PRESENTATION AT OUR OFFICE: 45.3 kg/m2 LAST BMI BEFORE SURGERY: 40.2 kg/m2 COMORBIDITIES: sleep apnea on CPAP, non-insulin dependent diabetes, hypertension, BPH, depression, liver steatosis, hyperlipidemia, migraines, DJD, liver fibrosis ?The patient presented to the Weight Management Program with significant obesity that was negatively impacting the patient's comorbidities as listed above.? The program is a phased program with a special focus on preoperative medical weight management to promote substantial weight loss and prepare the patients for the second phase of the program: bariatric surgery. The patient participated in an intensive weekly lifestyle ?intervention and exercise program during which the patient ?has lost between the initial office visit and the last preoperative visit 36.8lbs, or 11.33% of initial actual body weight. It was deemed appropria te for the patient to now have bariatric surgery. In light of the current Covid- 19 pandemic and the well documented strong association of obesity and increased risk of worse outcomes if infected with Covid-19 (REFERENCES: https://pubmed.ncbi.nlm.nih.gov/21399885/ ,? https://pubmed.ncbi.nlm.nih.gov/71495403/ ), any delay in undergoing bariatric surgery may lead to the patient's worsening health condition and increased?risk of more severe Covid-19 disease if infected. In addition a recent?study from [facility] published in [employer] [facility] on 09/12/2021 ([email or web address]) found that, among patients with obesity, substantial weight loss achieved with surgery was associated with improved outcomes of COVID-19 infection. The findings suggest that obesity can be a modifiable risk factor for the severity of COVID-19 infection. In addition, the patient met the BMI-criteria for bariatric surgery based on the BMI on initial presentation. The patient should not be penalized for achieving such weight loss because ?it is not sustainable long-term without surgical intervention and it was achieved in preparation for bariatric surgery ?under my direction and based on my published research ([email or web address]).[email or web address] and? https://ww w.soken.org/article/[email or web address](19)17417-X/pdf ) ?that a 10% preoperative weight loss improves long-term weight loss after surgery and reduces perioperative complications.? Insurance carriers such as [facility] have endorsed my recommendations ?and have included in their policies criteria to include a 10% preoperative weight loss requirement. PROCEDURE: Esophago-gastroscopy, laparoscopic sleeve gastrectomy and laparoscopic gastropexy INDICATIONS: This is a 56 year-old female who was electively scheduled for laparoscopic, possibly open sleeve gastrectomy. The risks and complications of the procedure were discussed with the patient in advance, particularly the possibility of ; pulmonary embolism; staple line leak; bleeding; GERD; cardiac, pulmonary, or renal complications; as well as long-term problems such as insufficient weight loss, vitamin deficiency, strictures, or ulcers. The patient understood all the risks, and was in agreement to proceed with surgery. DESCRIPTION OF PROCEDURE: After informed consent was obtained from the patient, the patient was given preoperative antibiotics, and was transferred to the operating room. After successful induction of general anesthesia, pneumatic compression devices were placed on both lower extremities. An upper endoscopy was performed next. The oropharynx and esophagus appeared to be within normal limits. There was no diaphragmatic hernia present consistent with the findings of the preoperative upper GI. The stomach was entered. Then after all fluid and air were suctioned and the stomach was fully decompressed, the scope was withdrawn and secured in the mid esophagus. The patient was then prepped and draped in the usual sterile manner, and abdominal access was established at the right upper quadrant with the Rachid te chnique. A 12 mm blunt port was inserted, and the abdomen was insufflated with CO2 to a pressure of 15 mmHg. Under direct visualization, additional ports were placed, specifically two 5 mm Versi-step ports to the left upper quadrant, and a 5 mm Versi-Step port to the right upper quadrant. 1% lidocaine plain was used to infiltrate all port sites as well as all fascia defects. Using the EndoClose suture passer device, I placed a #1 Polysorb tie across the falciform ligament in order to retract it up against the abdominal wall and prevent injury of the ligament with our instruments during the procedure. Following that, the patient was placed in a steep reverse Trendelenburg position. An additional 5 mm port was placed to the right flank for the Mediflex retractor that was used to retract the left lobe of the liver. The gastro-esophageal fat pad was opened with the ultrasonic device (Thunderbeat, Olympus) and the anterior esophagus and hiatus were exposed. The angle of His was opened with the ultrasonic device the fundus of the stomach from any diaphragmatic and splenic attachments. I then opened the gastrocolic ligament between the transverse colon and the greater curvature of the stomach with the ultrasonic device to enter the lesser sac and facilitate the ligation of the short gastric vessels. I started at a mid-point along the greater curvature and using the Thunderbeat, all short gastric vessels were divided all the way to the angle of His until the left isa was completely dissected at its entirety. I then divided the gastro-colic ligament distally to a distance of about 3-4 cm proximal to the pylorus. The stomach was then divided transversely with one Endo SIRI-45 purple, one SIRI- 60 purple load, one SIRI-45 orange load and three SIRI-60 articulating orange loads using the AEON stapler and loads. Every effort was made that the gastric sleeve had a tubular shape and an even caliber throughout. Once the sleeve resection was completed, the staple line of the gastric sleeve was reinforced with Hemoclips. The resected stomach was retrieved without difficulty from the Rachid port. A gastropexy was then performed in order to prevent postoperative GERD and partial gastric volvulus. Several interrupted 2.0 Surgidac sutures were placed between the sleeve's staple line and the previously divided greater omentum and gastro-colic ligament using the Endo-Stitch device. ?An upper endoscopy was performed. There was no narrowing at the GE junction. The scope was easily advanced all the way to the pylorus which was clearly visualized. There was no narrowing anywhere and the sleeve's caliber was even throughout. The sleeve's staple line was inspected and there was no evidence of ischemia, bleeding or dehiscence. At that point the gastroscope was withdrawn from the patient?s mouth while we were decompressing the bowel and the stomach from any remaining air. I looked into the lesser sac to see how the sleeve was situating and it was situating well. There was no bleeding from the staple line, spleen, or short gastric vessels. The Mediflex retractor was removed, and the undersurface of the liver was inspected and there was no bleeding. The patient was placed in supine position. I closed the fascial defect of the 12 mm port site with a figure of eight #1 Polysorb suture. Then 100 cc 0.25 % Marcaine plain with 10 mg of Dexamethasone were used to infiltrate the fascial closure as well as all skin incisions. At this point, the abdomen was deflated, all ports were removed under direct vision, and no bleeding was noted from any of the port sites. The skin incisions were irrigated with saline and were closed with 4-0 absorbable monofilament sutures. Steri-Strips and OpSites were used to cover all incisions. The patient was extubated and was transferred in stable condition to the recovery room for further care. I was present and performed all clark parts of the procedure. Ms. Gonzales was the certified surgical tech/first assistant. There were no residents to assist with this case. Misael Kay MD, PhD, FACS Surgeon: Vladimir Kay MD Anesthesia: GETA, local and other (TAP block) Was an Electrical Tests Supervisor used for this Procedure?: Yes Electrical Tests Supervisor: Lupe Gonzales Estimated blood loss (mL): 10 IV fluids (mL): 3,000 Urine output (mL): 0 (No Garcia to gravity) Pathology: other (Stomach) Condition: stable Disposition: PACU
--- NOTE | 2021-12-20 10:36 | PM.PNGS ---
Subjective Subjective Date of Service: 12/21/21 Interval history: Patient has mild incisional pain, but was able to ambulate and use the incentive spirometer. He is tolerating phase 1 bariatric diet Physical Exam Vital Signs: Vital Signs: Last Vital Signs Temp 97 F 12/20/21 06:16 Pulse 68 12/20/21 06:16 Resp 18 12/20/21 06:16 BP 111/71 12/20/21 06:16 Pulse Ox 94 12/20/21 06:16 BMI result Body Mass Index 40.4 GI: Inspection: Yes normal to inspection, Yes incision (clean, dry and intact) and Yes obesity Extrem: Right lower extremity: normal to inspection (no calf tenderness) Left lower extremity: normal to inspection (no calf tenderness) Objective Data Active Medications Famotidine (Famotidine/Pf 20 Mg/2 Ml Vial) 20 mg IVPUSH BID MAUREEN Fentanyl (Fentanyl Citrate/Pf 100 Mcg/2 Ml Vial) 50 mcg IVPUSH Q5M PRN; Protocol PRN Reason: Pain, Moderate (Pain Scale 4-6 Hydromorphone HCl (Hydromorphone Hcl 0.5 Mg/0.5 Ml Syringe) 0.5 mg IVPUSH Q5M PRN; Protocol PRN Reason: Pain, Severe (Pain Scale 7-10) Lactated Ringer's (Lr) 1,000 mls @ 100 mls/hr IVCONT .Q10H [facility] Last Admin: 12/20/21 06:39 Dose: 100 mls/hr Documented by: MUKUL Promethazine HCl 6.25 mg/ (Sodium Chloride) 50.25 mls @ 201 mls/hr IV ONCE PRN PRN Reason: Nausea and Vomiting Metoclopramide HCl (Metoclopramide Hcl 10 Mg/2 Ml Vial) 10 mg IVPUSH Q6H PRN PRN Reason: Nausea Ondansetron HCl (Ondansetron Hcl 4 Mg/2 Ml Vial) 4 mg IVPUSH ONCE PRN PRN Reason: Nausea and Vomiting Oxycodone HCl (Oxycodone Hcl Immed Release 5 Mg Tablet) 10 mg PO ONCE PRN PRN Reason: Pain, Mild (Pain Scale 1-3) Labs CBC & Chem 7: 12/21/21 05:56 12/21/21 05:56 Labs: Laboratory Results - last 24 hr 12/19/21 12/20/21 16:05 06:18 POC Glucose 168 H COVID-19 (JERI) Negative COVID-19 Clin Com See Note Procedures Date of Service Date of Service: 12/21/21 Progress Note: A&P Assessment and plan (1) S/P laparoscopic sleeve gastrectomy: Status: Acute Assessment and Plan: s/p laparoscopic sleeve gastrectomy and gastropexy Doing well Check am labs. If OK, will discharge home? (2) Morbid obesity: Status: Acute (3) AUDRA (obstructive sleep apnea): Status: Acute (4) Type 2 diabetes mellitus: Status: Acute (5) Migraine: Status: Acute (6) Depression: Status: Acute (7) Benign prostatic hyperplasia: Status: Acute (8) Hypertension: Status: Acute (9) Hyperlipidemia: Status: Acute (10) Lower extremity edema: (11) Major depression, chronic: Status: Acute (12) Steatosis, liver: Status: Acute (13) Liver fibrosis: Status: Acute Fall Risk Details Current Medications: Current Medications Famotidine (Famotidine/Pf 20 Mg/2 Ml Vial) 20 mg IVPUSH BID MAUREEN Fentanyl (Fentanyl Citrate/Pf 100 Mcg/2 Ml Vial) 50 mcg IVPUSH Q5M PRN; Protocol PRN Reason: Pain, Moderate (Pain Scale 4-6 Hydromorphone HCl (Hydromorphone Hcl 0.5 Mg/0.5 Ml Syringe) 0.5 mg IVPUSH Q5M PRN; Protocol PRN Reason: Pain, Severe (Pain Scale 7-10) Lactated Ringer's (Lr) 1,000 mls @ 100 mls/hr IVCONT .Q10H [facility] Last Admin: 12/20/21 06:39 Dose: 100 mls/hr Documented by: Promethazine HCl 6.25 mg/ (Sodium Chloride) 50.25 mls @ 201 mls/hr IV ONCE PRN PRN Reason: Nausea and Vomiting Metoclopramide HCl (Metoclopramide Hcl 10 Mg/2 Ml Vial) 10 mg IVPUSH Q6H PRN PRN Reason: Nausea Ondansetron HCl (Ondansetron Hcl 4 Mg/2 Ml Vial) 4 mg IVPUSH ONCE PRN PRN Reason: Nausea and Vomiting Oxycodone HCl (Oxycodone Hcl Immed Release 5 Mg Tablet) 10 mg PO ONCE PRN PRN Reason: Pain, Mild (Pain Scale 1-3) Time Spent With Patient Time: Total time spent is greater than 50% in coordination of care (as documented) at patient's floor/unit and/or counseling patient: Quality Stroke Does the patient have a stroke diagnosis?: No VTE Prior VTE?: No VTE Risk Level:: Surgical - moderate VTE Device Contraindication: N/A - Device Ordered VTE Drug Contraindication: Treatment Not Indicated
[2021-12-20] MEDS: HYDROmorphone HCl 0.5 MG/0.5 ML SYRINGE IVPUSH ×4 (10:40→11:10)
[2021-12-20 10:46] LABS: Hematocrit 33.2 % (42.0-52.0)
[2021-12-20] MEDS: Famotidine/PF 20 MG/2 ML VIAL IVPUSH ×2 (10:50→21:25)
[2021-12-20 11:02] LABS: Anion Gap 14 (12-20); Blood Urea Nitrogen 35 mg/dL (9-16); Calcium 9.4 mg/dL (8.4-10.2); Carbon Dioxide 24 mmol/L (22-29); Chloride 100 mmol/L (96-108); Creatinine Clr Calc Pharmacy 120.2; Estimated Glomerular Filt Rate > 60; Glucose Random 239 mg/dL (60-115); Potassium 4.6 mmol/L (3.3-5.1); Sodium 133 mmol/L (135-145)
--- NOTE | 2021-12-20 11:03 | PHA.MEDREC ---
Pharmacy Consult ? Medication Reconciliation Pharmacy has completed the medication reconciliation. DONE IN SSS AND DOUBLE CHECKED
[2021-12-20] MEDS: 0.9 % Sodium Chloride Flush 3 ML SYRINGE IVFLUSH (17:34)
[2021-12-20] MEDS: Tamsulosin HCL 0.4 MG CAPSULE PO (17:35)
[2021-12-20] MEDS: ondansetron HCL 4 MG/2 ML VIAL IVPUSH (17:35)
[2021-12-20] MEDS: buPROPion HCl XL 150 MG TAB.ER.24H 450 MG PO (17:35)
[2021-12-20 17:50] LABS: Glucose, Whole Blood 276 mg/dL (60-115)
[2021-12-20] MEDS: Insulin Lispro 100 UNIT/ML 3 ML VIAL SUBCUT ×2 (18:04→23:00)
[2021-12-20 22:58] LABS: Glucose, Whole Blood 218 mg/dL (60-115)
[2021-12-21] MEDS: ondansetron HCL 4 MG/2 ML VIAL IVPUSH (02:28)
[2021-12-21 02:33] LABS: Glucose, Whole Blood 202 mg/dL (60-115)
[2021-12-21] MEDS: Insulin Lispro 100 UNIT/ML 3 ML VIAL SUBCUT ×2 (02:36→06:22)
[2021-12-21 03:19] VITALS: BP 129/64; PULSE 68; RESP 18; TEMP 37.1; O2SAT 92
[2021-12-21 06:12] LABS: Glucose, Whole Blood 179 mg/dL (60-115)
[2021-12-21 06:16] LABS: MANUAL DIFF FLAG NO
[2021-12-21 06:30] LABS: Basophils Percent Auto 0.1 % (0-2); Hematocrit 32.5 % (42.0-52.0); Hemoglobin 10.6 g/dl (14.0-18.0); Imm Gran Abs Auto 0.04 X10*3/uL (0.00-0.03); Imm Gran Pct Auto 0.4 % (0.0-0.4); Lymphocytes Absolute Auto 0.6 X10*3/uL (1.2-4.9); Lymphocytes Percent Auto 6.8 % (20-40); Mean Corpuscular HGB Conc 32.6 g/dl (31.0-36.0); Mean Corpuscular Hemoglobin 27.7 pg (27.0-33.0); Mean Corpuscular Volume 85.1 fL (80.0-98.0); Mean Platelet Volume 10.2 fL (9.4-12.4); Monocytes Absolute Auto 0.9 X10*3/uL (0.1-1.2); Monocytes Percent Auto 10.3 % (2-11); Neutrophils Absolute Auto 7.5 x10*3/uL (2.0-8.3); Neutrophils Percent Auto 82.4 % (45-73); Platelet Count 217 X10*3/uL (160-400); Red Blood Count 3.82 X10*6/uL (4.60-5.80); Red Cell Distribution Width 12.9 % (11.0-16.0); White Blood Count 9.2 X10*3/uL (4.8-10.8)
[2021-12-21 06:35] LABS: Anion Gap 11 (12-20); Blood Urea Nitrogen 22 mg/dL (9-16); Calcium 9.2 mg/dL (8.4-10.2); Carbon Dioxide 25 mmol/L (22-29); Chloride 103 mmol/L (96-108); Creatinine Clr Calc Pharmacy 137.4; Estimated Glomerular Filt Rate > 60; Glucose Random 172 mg/dL (60-115); Potassium 5.2 mmol/L (3.3-5.1); Sodium 134 mmol/L (135-145)
[2021-12-21 07:12] VITALS: O2SAT 93
[2021-12-21 07:35] VITALS: BP 127/59; PULSE 65; RESP 18; TEMP 36.8; O2SAT 93
--- NOTE | 2021-12-21 08:34 | MHC.CM.PN ---
Patient has been medically cleared for dc to home today, self care.Patient lives in a house with his and 16 year old Son and he is functionally independent and working. PCP is Dr.Robert Benton and Patient has received Moderna/Covid vax X2.
[2021-12-21] MEDS: Tamsulosin HCL 0.4 MG CAPSULE PO (08:43)
[2021-12-21] MEDS: 0.9 % Sodium Chloride Flush 3 ML SYRINGE IVFLUSH (08:43)
[2021-12-21] MEDS: lamoTRIgine 100 MG TABLET PO (08:44)
[2021-12-21] MEDS: Metoprolol Succinate ER 100 MG TAB.ER.24H PO (08:44)
[2021-12-21] MEDS: lisinopriL 2.5 MG TABLET PO (08:44)
[2021-12-21] MEDS: Escitalopram Oxalate 20 MG TABLET PO (08:44)
--- NOTE | 2021-12-21 14:34 | HO.POSTANES ---
Post Anesthesia Evaluation Post Anesthesia Evaluation Vital Signs: Vital Signs Temp Pulse Resp BP Pulse Ox 12/21/21 07:35 98.3 F 65 18 127/59 L 93 12/21/21 07:12 93 12/21/21 03:19 98.8 F 68 18 129/64 92 Anesthesia: General Endotracheal-GETA Mental Status: Awake Pain Control: Satisfactory Nausea/Vomiting: None Hydration: Adequate Anesthesia-Related Issues: No Anes. Related Issues
== END 2021-12-21 10:05 | disposition home or self-care (01) | DRG 403 ==
LOC: HO.SSSA 06:25 → HO.S3 14:46
PROVIDERS: Physician Assistant; Physician Assistant Surgical; Admitting Provider Surgery; PCP Internal Medicine Medical Oncology; Visit Provider Surgery
PROC: 0DB64Z3 Excision of Stomach, Percutaneous Endoscopic Approach, Vertical (ICD-10-PCS; CPT 43845; principal; 2021-12-20 07:30)
DX: E66.01 Morbid (severe) obesity due to excess calories (principal); K74.00 Hepatic fibrosis, unspecified; E11.9 Type 2 diabetes mellitus without complications; E78.5 Hyperlipidemia, unspecified; F41.9 Anxiety disorder, unspecified; M50.30 Other cervical disc degeneration, unspecified cervical region; G47.33 Obstructive sleep apnea (adult) (pediatric); F32.A Depression, unspecified; N40.0 Benign prostatic hyperplasia without lower urinary tract symptoms; F11.20 Opioid dependence, uncomplicated; G43.909 Migraine, unspecified, not intractable, without status migrainosus; K76.0 Fatty (change of) liver, not elsewhere classified; Z68.41 Body mass index [BMI] 40.0-44.9, adult; Z99.89 Dependence on other enabling machines and devices; Z20.822 Contact with and (suspected) exposure to COVID-19; Z87.891 Personal history of nicotine dependence; Z79.84 Long term (current) use of oral hypoglycemic drugs; Z79.899 Other long term (current) drug therapy
CPT/HCPCS: 36415; 80048; 82947; 85014; 85018; 85025; 86850; 86900; 86901; 87635; 88307; 88342; 99024; A4649; J0131; J0690; J1100; J1170; J2250; J2405; J2550; J3010

== ENCOUNTER → 2021-12-27 14:51 | Outpatient (BNVA) | payer OTHER, SELFPAY | PROVIDERS: Visit Provider Surgery | DX: Z13.89 Encounter for screening for other disorder (principal) ==

== ENCOUNTER → 2021-12-29 14:05 | Outpatient (BNVA) | payer OTHER, SELFPAY | PROVIDERS: PCP Internal Medicine Medical Oncology; Visit Provider Internal Medicine | DX: Z13.89 Encounter for screening for other disorder (principal) ==

== ENCOUNTER → 2022-01-03 11:54 | Outpatient (BNVA) | payer OTHER, SELFPAY | PROVIDERS: PCP Internal Medicine Medical Oncology; Visit Provider Internal Medicine | DX: Z13.89 Encounter for screening for other disorder (principal) ==

== ENCOUNTER → 2022-01-26 08:09 | Outpatient (BNVA) | payer OTHER, SELFPAY | PROVIDERS: Visit Provider Physician Assistant | DX: E66.9 Obesity, unspecified (principal) ==

== ENCOUNTER → 2022-02-28 10:59 | Outpatient (BNVA) | payer OTHER, SELFPAY | PROVIDERS: PCP Internal Medicine Medical Oncology; Visit Provider Internal Medicine | DX: Z51.81 Encounter for therapeutic drug level monitoring (principal); F11.11 Opioid abuse, in remission | CPT/HCPCS: 80305 ==

== ENCOUNTER 2022-06-16 10:18 | Day surgery (SDC) | payer OTHER, SELFPAY ==
--- NOTE | 2022-06-15 09:49 | P.CONAN_ITS ---
Documented by User: Doretha Williamson NP 06/15/22 09:52 HPI - Anesthesia Eval Consult details Narrative: 56yo M for Colonoscopy Suboxone daily s/p gastric sleeve 12/2021 with GA-ETT 7.5 PMFSH Active Problems Active Problems: All Active Problems (Updated 06/01/22 @ 15:12 by MICK Flynn) Overweight (BMI 25.0-29.9) (Acute) Constipation (Acute) BMI 38.0-38.9,adult (Acute) Obesity (Acute) S/P laparoscopic sleeve gastrectomy (Acute) Liver fibrosis (Acute) Steatosis, liver (Acute) Morbid obesity with BMI of 40.0-44.9, adult (Acute) Major depression, chronic (Acute) Opioid use disorder, mild, in sustained remission, on maintenance therapy, abuse (Acute) Hyperlipidemia (Acute) Hypertension (Acute) Benign prostatic hyperplasia (Acute) Depression (Acute) Migraine (Acute) Type 2 diabetes mellitus (Acute) Noncompliance with CPAP treatment (Acute) Morbid obesity (Acute) BMI 45.0-49.9, adult (Acute) AUDRA (obstructive sleep apnea) (Acute) Past Medical History Medical History (Updated 06/16/22 @ 10:59 by Mera Damon RN) Anxiety Benign prostatic hyperplasia BMI 40.0-44.9, adult BMI 45.0-49.9, adult DDD (degenerative disc disease), cervical Depression Hyperlipidemia Hypertension Liver fibrosis Lower extremity edema Migraine Morbid obesity Noncompliance with CPAP treatment Occasional tremors AUDRA (obstructive sleep apnea) Preoperative examination Shortness of breath Shortness of breath Steatosis, liver Tremor Type 2 diabetes mellitus Vitamin B1 deficiency Vitamin D deficiency Family History Family History Father Diabetes Mother Diabetes Sister No problems noted. Sister Depression Sister No problems noted. Son No problems noted. Son No problems noted. Daughter No problems noted. Family history of problems with anesthesia: No Surgical History Surgical History History of colonoscopy Hx of knee surgery Hx of neck surgery Hx of shoulder surgery S/P appendectomy S/P laparoscopic sleeve gastrectomy History of Problems with Anesthesia: No Social History Social History Household Members: None Housing: Apartment Are you a primary continuum of care manager to a significant other at home: No Do you presently have visiting nurse or other home services: No Alcohol intake: current Alcohol intake frequency: does not drink Patient Tobacco Use Status: Former Tobacco user Quit Date: 5 years ago Tobacco use type: Cigarette e-Cigarette/Vaping Use: Currently Using Are you DNR?: No Advance Directives: No Advance Directives Information Provided: Yes service: No Current occupational status: employed Meds Allergies Allergy/AdvReac Type Severity Reaction Status Date / Time Seasonal Allergies Allergy Intermediate Runny Nose Verified 04/24/22 09:51 Home Medications Medication Instructions Recorded Confirmed Last Taken Type citalopram 40 mg tablet 40 mg PO DAILY 07/14/20 06/16/22 06/15/22 History lamotrigine 100 mg tablet 100 mg PO DAILY 07/14/20 06/16/22 06/15/22 History metoprolol succinate 100 mg 50 mg PO DAILY 07/14/20 06/16/22 06/15/22 History tablet,extended release 24 hr tamsulosin 0.4 mg capsule 0.4 mg PO DAILY 07/14/20 06/16/22 06/15/22 History bupropion HCl 150 mg 24 hr tablet, 450 mg PO DAILY 02/03/21 06/16/22 06/15/22 History extended release cholecalciferol (vitamin D3) 1,250 1,250 mcg PO QWEEK 12/29/21 06/16/22 06/15/22 History mcg (50,000 unit) capsule Exam Exam Date and Time: June 15, 2022 0949 Pertinent Lab Results Pertinent Lab Results: Laboratory Tests 12/21/21 12/21/21 05:56 05:56 WBC 9.2 Hgb 10.6 L Hct 32.5 L Plt Count 217 Sodium 134 L Potassium 5.2 H Chloride 103 Carbon Dioxide 25 BUN 22 H Creatinine 0.84 Narrative Narrative: EKG 04/2021 Vent. Rate : 051 BPM ? ? Atrial Rate : 051 BPM ?? P-R Int : 192 ms? QRS Dur : 110 ms ? ? QT Int : 456 ms ? ? ? P-R-T Axes : 042 024 007 degrees ?? QTc Int : 420 ms ? Sinus bradycardia Otherwise normal ECG When compared with ECG of 02-SEP-2014 23:03, Vent. rate has decreased BY? 25 BPM Assessment and Plan Assessment Anesthesia Assessment: Chart Reviewed Final Anesthetic Review Family History of Problems with Anesthesia: No History of Problems with Anesthesia: No Documented by User: Marla Maddox MD 06/16/22 12:11 HPI - Anesthesia Eval Consult details Narrative: 56yo M for Colonoscopy Suboxone daily. Last dose this am s/p gastric sleeve 12/2021 with GA-ETT 7.5 PMFSH Active Problems Active Problems: All Active Problems (Updated 06/01/22 @ 15:12 by MICK Flynn) Overweight (BMI 25.0-29.9) (Acute) Constipation (Acute) BMI 38.0-38.9,adult (Acute) Obesity (Acute) S/P laparoscopic sleeve gastrectomy (Acute) Liver fibrosis (Acute) Steatosis, liver (Acute) Morbid obesity with BMI of 40.0-44.9, adult (Acute) Major depression, chronic (Acute) Opioid use disorder, mild, in sustained remission, on maintenance therapy, abuse (Acute) Hyperlipidemia (Acute) Hypertension (Acute) Benign prostatic hyperplasia (Acute) Depression (Acute) Migraine (Acute) Type 2 diabetes mellitus (Acute) Noncompliance with CPAP treatment (Acute) Morbid obesity (Acute) BMI 45.0-49.9, adult (Acute) AUDRA (obstructive sleep apnea) (Acute)- Patient states no longer has AUDRA Past Medical History Medical History (Updated 06/16/22 @ 10:59 by Mera Damon, RN) Anxiety Benign prostatic hyperplasia BMI 40.0-44.9, adult BMI 45.0-49.9, adult DDD (degenerative disc disease), cervical Depression Hyperlipidemia Hypertension Liver fibrosis Lower extremity edema Migraine Morbid obesity Noncompliance with CPAP treatment Occasional tremors AUDRA (obstructive sleep apnea) Preoperative examination Shortness of breath Shortness of breath Steatosis, liver Tremor Type 2 diabetes mellitus Vitamin B1 deficiency Vitamin D deficiency Family History Family History Father Diabetes Mother Diabetes Sister No problems noted. Sister Depression Sister No problems noted. Son No problems noted. Son No problems noted. Daughter No problems noted. Surgical History Surgical History History of colonoscopy Hx of knee surgery Hx of neck surgery Hx of shoulder surgery S/P appendectomy S/P laparoscopic sleeve gastrectomy Social History Social History Household Members: None Housing: Apartment Are you a primary continuum of care manager to a significant other at home: No Do you presently have visiting nurse or other home services: No Alcohol intake: current Alcohol intake frequency: does not drink Patient Tobacco Use Status: Former Tobacco user Quit Date: 5 years ago Tobacco use type: Cigarette e-Cigarette/Vaping Use: Currently Using Are you DNR?: No Advance Directives: No Advance Directives Information Provided: Yes service: No Current occupational status: employed Meds Allergies Allergy/AdvReac Type Severity Reaction Status Date / Time Seasonal Allergies Allergy Intermediate Runny Nose Verified 04/24/22 09:51 Home Medications Medication Instructions Recorded Confirmed Last Taken Type citalopram 40 mg tablet 40 mg PO DAILY 07/14/20 06/16/22 06/15/22 History lamotrigine 100 mg tablet 100 mg PO DAILY 07/14/20 06/16/22 06/15/22 History metoprolol succinate 100 mg 50 mg PO DAILY 07/14/20 06/16/22 06/15/22 History tablet,extended release 24 hr tamsulosin 0.4 mg capsule 0.4 mg PO DAILY 07/14/20 06/16/22 06/15/22 History bupropion HCl 150 mg 24 hr tablet, 450 mg PO DAILY 02/03/21 06/16/22 06/15/22 History extended release cholecalciferol (vitamin D3) 1,250 1,250 mcg PO QWEEK 12/29/21 06/16/22 06/15/22 History mcg (50,000 unit) capsule Exam Height,Weight and Vital Signs: Height 5 ft 11 in Weight 96.162 kg Vital Signs Temp Pulse Resp BP Pulse Ox O2 Del Method 98.8 F 54 18 135/79 97 06/16/22 10:55 06/16/22 10:55 06/16/22 10:55 06/16/22 10:55 06/16/22 10:55 06/16/22 10:55 Pertinent Lab Results Pertinent Lab Results: Laboratory Tests 12/21/21 12/21/21 05:56 05:56 WBC 9.2 Hgb 10.6 L Hct 32.5 L Plt Count 217 Sodium 134 L Potassium 5.2 H Chloride 103 Carbon Dioxide 25 BUN 22 H Creatinine 0.84 Lab Results 06/16/22 Range/Units 10:25 Urine Opiates Screen Not Detected (Not Detect) Urine Fentanyl Screen Not Detected (Not Detect) Ur Barbiturates Screen Not Detected (Not Detect) Ur Phencyclidine Scrn Not Detected (Not Detect) Ur Amphetamines Screen Not Detected (Not Detect) U Benzodiazepines Scrn Not Detected (Not Detect) Urine Cocaine Screen Not Detected (Not Detect) U Marijuana (THC) Screen Not Detected (Not Detect) Airway Mallampati Class: III TM Dist: >3cm Neck ROM: Full Loose/Missing/Broken Teeth: No Heart: RRR Lungs: CTAB Assessment and Plan Assessment Anesthesia Assessment: Anesthesia Plan Discussed Final Anesthetic Review ASA Class: III Final Preanesthetic Review: No Changes in Pt Med Stat, Meds/Allgs Chart Reviewed, Consent Obtained/Reviewed and Anes Risks/Benef Reviewed Patient Risk: Intermediate Procedure Risk: Low Assessment/Block/Sedation in SS: Assess/Block/Sedation-SS Anesthetic Plan Anesthetic Plan: MAC: Disposition: Standard PACU
[2022-06-16 10:55] VITALS: BP 135/79; PULSE 54; RESP 18; TEMP 37.1; O2SAT 97; BMI 29.5
[2022-06-16 11:00] LABS: Amphetamine Screen Urine Not Detected (Not Detect); Barbiturates, Urine Not Detected (Not Detect); Benzodiazepines Screen Urine Not Detected (Not Detect); Cannabinoid Screen Urine Not Detected (Not Detect); Cocaine Screen Urine Not Detected (Not Detect); Fentanyl, urine Not Detected (Not Detect); Opiate Screen Urine Not Detected (Not Detect); Phencyclidine Screen Urine Not Detected (Not Detect)
[2022-06-16] MEDS: Lactated Ringers 1,000 ML 100 ML IVCONT (11:11)
--- NOTE | 2022-06-16 11:17 | MHC.SHP ---
Pre-Procedural Eval Section A Date of Service: 06/16/22 The patient is an INPATIENT: No Changes since office visit: No Cold of Flu in the past 2 weeks, No New Medical Problems, No Changes in Medication and No Patient answered all questions The History & Physical has been completed within 30 days and I have reviewed it.: Yes Section B Chief Complaint: rectal bleeding Allergies: Allergies Allergy/AdvReac Type Severity Reaction Status Date / Time Seasonal Allergies Allergy Intermediate Runny Nose Verified 04/24/22 09:51 Plan I have reviewed the history and physical and performed a pertinent physical examination on my patient. No changes have occurred unless specified.
[2022-06-16 12:04] VITALS: BP 129/63; PULSE 53; RESP 12; TEMP 36.8; O2SAT 95
--- NOTE | 2022-06-16 12:12 | PM.OP ---
Brief Operative Note Date of Service: 06/16/22 Pre-op diagnosis: rectal bleeding/pain Post-op diagnosis: same Procedure: colonoscopy Surgeon: Abilio Phan Anesthesia: MAC Was an Corporate Travel Coordinator used for this Procedure?: No Estimated blood loss (mL): 5 Pathology: other Condition: stable Disposition: PACU
[2022-06-16 12:19] VITALS: BP 111/68; PULSE 49; RESP 14; TEMP 36.8; O2SAT 94
--- NOTE | 2022-06-16 13:23 | OP_ITS ---
SURGEON: Abilio Phan MD INDICATIONS: Rectal bleeding and rectal pain. PREOPERATIVE DIAGNOSIS: POSTOPERATIVE DIAGNOSIS: PROCEDURE PERFORMED: Colonoscopy to the terminal ileum with biopsy, GI panel, and viral culture. ESTIMATED BLOOD LOSS: COMPLICATIONS: ANESTHESIA: Monitored anesthesia care. ASSISTANTS: SPECIMENS: DESCRIPTION OF PROCEDURE: History and physical performed. The risks and benefits of the procedure were explained to the patient. Informed consent was obtained. The patient was placed in the left lateral decubitus position. A digital rectal exam showed some excoriation to the anal skin at the sphincter. No mass was detected. The procedure was performed on 06/16/2022. The Olympus video colonoscope was introduced into the rectum and advanced to the cecum without difficulty. The cecum was identified by transillumination, palpation, and identification of ileocecal valve. Examination was performed. The scope was removed. He tolerated the procedure well and was taken to recovery area in stable condition. FINDINGS: The terminal ileum was normal. This was biopsied. There was a large amount of liquid stool in the colon which limited the sensitivity examination for detection of small polyps this was washed and suctioned. The mucosa in the colon appeared normal until about 30 cm where there was acute proctocolitis with patchy inflammatory change extending to more confluent inflammatory change in the rectum with ulceration. There was also edema, friability, and loss of vascular pattern. There were intervening normal areas. The appearance was suggestive of an acute proctocolitis. Biopsies were obtained from the right colon, left colon, sigmoid, and rectum. Viral culture was obtained from the rectum with a swab and stool was suctioned for a GI panel. Retroflexed examination showed proctitis extending to the squamocolumnar junction. IMPRESSION: Proctocolitis. RECOMMENDATION: 1. Follow up the biopsy results. 2. Begin mesalamine. 3. Continue Proctofoam. MD MALU Garcia/BINU / [id number] MTDD
[2022-06-16 14:06] LABS: Adenovirus F 40/41 Not Detected (Not Detect.); Astrovirus Not Detected (Not Detect.); Campylobacter Not Detected (Not Detect.); Cryptosporidium Not Detected (Not Detect.); Cyclospora cayetanensis Not Detected (Not Detect.); E. coli EAEC Not Detected (Not Detect.); E. coli EPEC Detected (Not Detect.); E. coli ETEC Not Detected (Not Detect.); E. coli STEC Not Detected (Not Detect.); Entamoeba histolytica Not Detected (Not Detect.); Giardia lamblia Not Detected (Not Detect.); Norovirus GI/GII Not Detected (Not Detect.); Plesiomonas shigelloides Not Detected (Not Detect.); Salmonella Not Detected (Not Detect.); Shigella sp./EIEC Not Detected (Not Detect.); Vibrio Not Detected (Not Detect.); Vibrio Cholerae Not Detected (Not Detect.); Yersinia enterocolitica Not Detected (Not Detect.)
[2022-06-16 14:07] LABS: Rotavirus A Not Detected (Not Detect.); Sapovirus Not Detected (Not Detect.)
== END 2022-06-16 13:00 | disposition home or self-care (01) ==
PROVIDERS: Nurse Practitioner; PCP Internal Medicine Medical Oncology; Visit Provider Internal Medicine Gastroenterology
PROC: 0DJD8ZZ Inspection of Lower Intestinal Tract, Via Natural or Artificial Opening Endoscopic (ICD-10-PCS; CPT 45378; principal; 2022-06-16 11:30)
DX: K62.5 Hemorrhage of anus and rectum (principal); K62.89 Other specified diseases of anus and rectum; R19.5 Other fecal abnormalities; G47.33 Obstructive sleep apnea (adult) (pediatric); I10 Essential (primary) hypertension; E78.5 Hyperlipidemia, unspecified; E11.9 Type 2 diabetes mellitus without complications; N40.0 Benign prostatic hyperplasia without lower urinary tract symptoms; F11.20 Opioid dependence, uncomplicated; Z79.899 Other long term (current) drug therapy; Z98.84 Bariatric surgery status; Z86.16 Personal history of COVID-19; Z87.891 Personal history of nicotine dependence
CPT/HCPCS: 45380; 36415; 80307; 87252; 87507; 88305

== ENCOUNTER → 2022-10-13 12:50 | Outpatient (BNVA) | payer OTHER, SELFPAY | PROVIDERS: PCP Internal Medicine Medical Oncology; Visit Provider Nurse Practitioner Psychiatric/Mental Health | DX: F11.11 Opioid abuse, in remission (principal); F32.9 Major depressive disorder, single episode, unspecified | CPT/HCPCS: 80305 ==

== ENCOUNTER → 2022-12-08 13:26 | Outpatient (BNVA) | payer OTHER, SELFPAY | PROVIDERS: PCP Internal Medicine Medical Oncology | DX: Z13.89 Encounter for screening for other disorder (principal) ==

== ENCOUNTER → 2023-02-02 13:39 | Outpatient (BNVA) | payer OTHER, SELFPAY | PROVIDERS: PCP Internal Medicine Medical Oncology; Visit Provider Nurse Practitioner Psychiatric/Mental Health | DX: F11.11 Opioid abuse, in remission (principal); Z79.899 Other long term (current) drug therapy | CPT/HCPCS: 80305 ==

== ENCOUNTER 2023-04-27 13:38 | Outpatient (AMB) | payer OTHER, SELFPAY ==
--- NOTE | 2023-04-27 13:40 | MHC.OFFVIS ---
Intake Vital Signs 04/27/23 13:50 BP 124/76 Blood Pressure Location Lt radial Position Sitting Pulse 94 Pulse Source Pulse Oximeter Pulse Oximetry (%) 96 Oxygen Delivery Method Room Air Intake Visit Reasons: MAT Visit Intake Note: The patient is here for a mat visit Information Security Specialist Required: No Allergies Seasonal Allergies Allergy (Intermediate, Verified 04/27/23 13:41) Runny Nose Do you need a note to return to daycare/school/sports/work: No HPI MAT Visit HPI Details Patient presents for treatment follow up Currently prescribed Suboxone 8mg TID Recently returned from [place] after taking care of his SOREN Reports he may be returning in June relationship with somewhat improved since his return from [facility] Medical History Anxiety Benign prostatic hyperplasia BMI 40.0-44.9, adult BMI 45.0-49.9, adult DDD (degenerative disc disease), cervical Depression Hyperlipidemia Hypertension Liver fibrosis Lower extremity edema Migraine Morbid obesity Noncompliance with CPAP treatment Occasional tremors AUDRA (obstructive sleep apnea) Preoperative examination Shortness of breath Shortness of breath Steatosis, liver Tremor Type 2 diabetes mellitus Vitamin B1 deficiency Vitamin D deficiency Surgical History History of colonoscopy Hx of knee surgery Hx of neck surgery Hx of shoulder surgery S/P appendectomy S/P laparoscopic sleeve gastrectomy Family History Father Diabetes Mother Diabetes Sister No problems noted. Sister Depression Sister No problems noted. Son No problems noted. Son No problems noted. Daughter No problems noted. Social History Household Members: None Housing: Apartment Are you a primary healthcare customer service to a significant other at home: No Do you presently have visiting nurse or other home services: No Alcohol intake: current Alcohol intake frequency: does not drink Patient Tobacco Use Status: Former Tobacco user Quit Date: 5 years ago Tobacco use type: Cigarette e-Cigarette/Vaping Use: Currently Using service: No Current occupational status: employed Review of Systems Const Reports as per HPI and Reports no additional complaints Physical Exam Vital Signs: Last Vital Signs Pulse 94 04/27/23 13:50 BP 124/76 04/27/23 13:50 Pulse Ox 96 04/27/23 13:50 Oxygen Delivery Method Room Air 04/27/23 13:50 Const General: cooperative, healthy appearing, comfortable, well developed and alert Nutritional Appearance: well nourished Orientation/consciousness: patient oriented x3 Limitations: no limitations Neuro General: patient oriented x3 Psych Appearance: grossly normal Mental Status: mental status grossly normal Speech and movement: Normal speech and movement present Affect: normal affect Attitude: cooperative Thought process: Normal thought process present Thought content: Normal thought content present Insight: Good insight present (Psych) Judgement: Good judgement present (Psych) Assessment & Plan Assessment & Plan (1) Opioid use disorder, mild, in sustained remission, on maintenance therapy, abuse: Code(s): F11.11 - Opioid abuse, in remission Plan: Continue Suboxone at current dose Follow-up 2 months Encouraged patient to call the office with any concerns or with any need for support. Patient verbalized understanding Medications: Refilled buprenorphine-naloxone 8-2 mg (Suboxone) 3 film sublingual DAILY 90 ea 1RF 30 days Coding Level of Care Code Est Pt Level 3 (20070) Diagnoses Opioid use disorder, mild, in sustained remission, on maintenance therapy, abuse F11.11
[2023-04-27 13:50] VITALS: BP 124/76; PULSE 94; O2SAT 96
== END 2023-04-27 14:38 | disposition home or self-care (01) ==
LOC: HO.HCC 13:38
PROVIDERS: PCP Internal Medicine Medical Oncology; Visit Provider Nurse Practitioner Psychiatric/Mental Health
DX: F11.11 Opioid abuse, in remission (principal)
CPT/HCPCS: 99213

== ENCOUNTER → 2023-04-27 13:38 | Outpatient (BNVA) | payer OTHER, SELFPAY | PROVIDERS: PCP Internal Medicine Medical Oncology; Visit Provider Nurse Practitioner Psychiatric/Mental Health | DX: Z51.81 Encounter for therapeutic drug level monitoring (principal) ==

== ENCOUNTER 2023-05-30 08:35 | Outpatient (REF) | payer OTHER, SELFPAY ==
[2023-05-30 11:55] LABS: MANUAL DIFF FLAG NO
[2023-05-30 12:11] LABS: Estimated Average Glucose 223 mg/dL; Hemoglobin A1c % 9.4 % (<6.0)
[2023-05-30 12:13] LABS: Basophils Absolute Auto 0.1 X10*3/uL (0.0-0.2); Basophils Percent Auto 0.9 % (0-2); Eosinophils Absolute Auto 0.2 X10*3/uL (0.0-0.4); Eosinophils Percent Auto 3.4 % (0-4); Hematocrit 39.9 % (42.0-52.0); Hemoglobin 12.6 g/dl (14.0-18.0); Imm Gran Abs Auto 0.03 X10*3/uL (0.00-0.03); Imm Gran Pct Auto 0.5 % (0.0-0.4); Lymphocytes Absolute Auto 1.9 X10*3/uL (1.2-4.9); Mean Corpuscular HGB Conc 31.6 g/dl (31.0-36.0); Mean Corpuscular Hemoglobin 27.5 pg (27.0-33.0); Mean Corpuscular Volume 87.1 fL (80.0-98.0); Mean Platelet Volume 10.7 fL (9.4-12.4); Monocytes Absolute Auto 0.5 X10*3/uL (0.1-1.2); Monocytes Percent Auto 8.4 % (2-11); Neutrophils Absolute Auto 3.1 x10*3/uL (2.0-8.3); Neutrophils Percent Auto 53.8 % (45-73); Platelet Count 221 X10*3/uL (160-400); Red Blood Count 4.58 X10*6/uL (4.60-5.80); White Blood Count 5.8 X10*3/uL (4.8-10.8)
[2023-05-30 12:39] LABS: Alanine Aminotransferase 5 U/L (0-40); Alkaline Phosphatase 52 U/L (39-117); Anion Gap 12 (12-20); Aspartate Amino Transferase 10 U/L (5-37); Bilirubin Total 0.6 mg/dL (0.0-1.0); Blood Urea Nitrogen 10 mg/dL (9-16); Calcium 9.5 mg/dL (8.4-10.2); Carbon Dioxide 29 mmol/L (22-29); Chloride 101 mmol/L (96-108); Cholesterol 171 mg/dL (<200); Estimated Glomerular Filt Rate > 60; Ferritin 106 ng/mL (20-250); Glucose Random 224 mg/dL (60-115); HDL Cholesterol 39 mg/dL (>40); Insulin 4 uU/mL (2-29); Iron 51 mcg/dL (45-160); LDL Cholesterol Calculated 111 mg/dL (<100); Percent Iron Saturation 23 % (15-50); Potassium 3.7 mmol/L (3.3-5.1); Sodium 138 mmol/L (135-145); TSH reflex Free T4 1.73 uIU/mL (0.32-4.0); Total Iron Binding Capacity 219 mcg/dL (228-428); Total Protein 6.6 g/dL (6.5-8.0); Triglycerides 105 mg/dL (<150); Unsaturated Iron Binding 168 ug/dL; Vitamin D 25-OH Total 34.9 ng/mL (>30)
[2023-05-30 12:55] LABS: Folate 6.3 ng/mL (> or = 4.0); Vitamin B12 331 pg/mL (200-900)
[2023-05-30 16:42] LABS: Lipase 9 U/L (8-78)
[2023-06-01 23:58] LABS: Calcium (PTHI) 9.1 mg/dL (8.6-10.3); PTHI 63 pg/mL (16-77)
[2023-06-02 17:13] LABS: Zinc 75 mcg/dL (60-130)
[2023-06-03 15:19] LABS: Vitamin B1 <6 nmol/L (8-30)
[2023-06-06 12:33] LABS: Vitamin A 27 mcg/dL (38-98)
== END 2023-05-30 08:36 | disposition home or self-care (01) ==
LOC: HO.HMGCLDS 08:35
PROVIDERS: Physician Assistant Surgical; PCP Internal Medicine Medical Oncology; Visit Provider Internal Medicine Gastroenterology
DX: K91.2 Postsurgical malabsorption, not elsewhere classified (principal); R19.7 Diarrhea, unspecified; K62.5 Hemorrhage of anus and rectum; Z98.84 Bariatric surgery status
CPT/HCPCS: 36415; 80053; 80061; 82306; 82607; 82728; 82746; 83036; 83525; 83540; 83690; 83970; 84425; 84443; 84590; 84630; 85025; 86140

== ENCOUNTER 2023-06-22 13:27 | Outpatient (AMB) | payer OTHER, SELFPAY ==
--- NOTE | 2023-06-22 13:31 | A.OFFVIS_ITS ---
Intake Vital Signs 06/22/23 13:38 BP 124/72 Blood Pressure Location Lt radial Position Sitting Pulse 78 Pulse Source Pulse Oximeter Pulse Oximetry (%) 97 Oxygen Delivery Method Room Air Intake Visit Reasons: MAT Visit Intake Note: the patient presents for a mat visit Timber Repairer Required: No Allergies Seasonal Allergies Allergy (Intermediate, Verified 06/22/23 13:39) Runny Nose Do you need a note to return to daycare/school/sports/work: No HPI MAT Visit HPI Details Patient presents for follow up Currently prescribed suboxone 8mg TID Gross tremor quite visible during visit Patient reports tremor worsens when stressed or irritated (has been having a bad day) Neurologist, Dr. Summers at [facility] Medical History Anxiety Benign prostatic hyperplasia BMI 40.0-44.9, adult BMI 45.0-49.9, adult DDD (degenerative disc disease), cervical Depression Hyperlipidemia Hypertension Liver fibrosis Lower extremity edema Migraine Morbid obesity Noncompliance with CPAP treatment Occasional tremors AUDRA (obstructive sleep apnea) Preoperative examination Shortness of breath Shortness of breath Steatosis, liver Tremor Type 2 diabetes mellitus Vitamin B1 deficiency Vitamin D deficiency Surgical History History of colonoscopy Hx of knee surgery Hx of neck surgery Hx of shoulder surgery S/P appendectomy S/P laparoscopic sleeve gastrectomy Family History Father Diabetes Mother Diabetes Sister No problems noted. Sister Depression Sister No problems noted. Son No problems noted. Son No problems noted. Daughter No problems noted. Social History Household Members: None Housing: Apartment Are you a primary childbirth and infant care teacher to a significant other at home: No Do you presently have visiting nurse or other home services: No Alcohol intake: current Alcohol intake frequency: does not drink Patient Tobacco Use Status: Former Tobacco user Quit Date: 5 years ago Tobacco use type: Cigarette e-Cigarette/Vaping Use: Currently Using service: No Current occupational status: employed Review of Systems Const Reports as per HPI Physical Exam Vital Signs: Last Vital Signs Pulse 78 06/22/23 13:38 BP 124/72 06/22/23 13:38 Pulse Ox 97 06/22/23 13:38 Oxygen Delivery Method Room Air 06/22/23 13:38 Const General: cooperative, healthy appearing, comfortable, well developed and alert Nutritional Appearance: well nourished Orientation/consciousness: patient oriented x3 Limitations: no limitations Neuro General: patient oriented x3 Psych Appearance: grossly normal Mental Status: mental status grossly normal Speech and movement: Normal speech and movement present Affect: normal affect Attitude: cooperative Thought process: Normal thought process present Thought content: Normal thought content present Insight: Good insight present (Psych) Judgement: Good judgement present (Psych) Assessment & Plan Assessment & Plan (1) Opioid use disorder, mild, in sustained remission, on maintenance therapy, abuse: Code(s): F11.11 - Opioid abuse, in remission Plan: * Continue Suboxone at current dose * Follow-up 2 months * Encouraged patient to call the office with any concerns or with any need for support. Patient verbalized understanding Medications: Refilled buprenorphine-naloxone 8-2 mg (Suboxone) 3 film sublingual DAILY 90 ea 1RF 30 days Coding Level of Care Code Est Pt Level 3 (70321) Diagnoses Opioid use disorder, mild, in sustained remission, on maintenance therapy, abuse F11.11
[2023-06-22 13:38] VITALS: BP 124/72; PULSE 78; O2SAT 97
== END 2023-06-22 14:49 | disposition home or self-care (01) ==
PROVIDERS: PCP Internal Medicine Medical Oncology; Visit Provider Nurse Practitioner Psychiatric/Mental Health
DX: F11.11 Opioid abuse, in remission (principal)
CPT/HCPCS: 99213

== ENCOUNTER → 2023-06-22 13:27 | Outpatient (BNVA) | payer OTHER, SELFPAY | PROVIDERS: PCP Internal Medicine Medical Oncology; Visit Provider Nurse Practitioner Psychiatric/Mental Health | DX: Z51.81 Encounter for therapeutic drug level monitoring (principal) ==

== ENCOUNTER 2023-08-17 13:06 | Outpatient (AMB) | payer OTHER, SELFPAY ==
--- NOTE | 2023-08-17 13:07 | A.OFFVIS_ITS ---
Intake Vital Signs 08/17/23 13:12 BP 122/74 Blood Pressure Location Lt radial Position Sitting Pulse 77 Pulse Source Pulse Oximeter Pulse Oximetry (%) 98 Oxygen Delivery Method Room Air Intake Visit Reasons: MAT Visit Intake Note: the patient presents for a mat visit Risk Control Manager Required: No Allergies Seasonal Allergies Allergy (Intermediate, Verified 08/17/23 13:13) Runny Nose Do you need a note to return to daycare/school/sports/work: No HPI MAT Visit HPI Details Patient presents for follow up Currently prescribed Suboxone 8mg TID Patient reporting increasing stress with work and homelife. Reports occasional thoughts of using, however able to work past them. He is reporting decreased motivation, anhedonia, and increased isolation. Discussed strategies to address isolation, including going to a coffee shop or library. [facility] Medical History Anxiety Benign prostatic hyperplasia BMI 40.0-44.9, adult BMI 45.0-49.9, adult DDD (degenerative disc disease), cervical Depression Hyperlipidemia Hypertension Liver fibrosis Lower extremity edema Migraine Morbid obesity Noncompliance with CPAP treatment Occasional tremors AUDRA (obstructive sleep apnea) Preoperative examination Shortness of breath Shortness of breath Steatosis, liver Tremor Type 2 diabetes mellitus Vitamin B1 deficiency Vitamin D deficiency Surgical History History of colonoscopy Hx of knee surgery Hx of neck surgery Hx of shoulder surgery S/P appendectomy S/P laparoscopic sleeve gastrectomy Family History Father Diabetes Mother Diabetes Sister No problems noted. Sister Depression Sister No problems noted. Son No problems noted. Son No problems noted. Daughter No problems noted. Social History Household Members: None Housing: Apartment Are you a primary day care worker to a significant other at home: No Do you presently have visiting nurse or other home services: No Alcohol intake: current Alcohol intake frequency: does not drink Patient Tobacco Use Status: Former Tobacco user Quit Date: 5 years ago Tobacco use type: Cigarette e-Cigarette/Vaping Use: Currently Using service: No Current occupational status: employed Review of Systems Const Reports as per HPI Physical Exam Vital Signs: Last Vital Signs Pulse 77 08/17/23 13:12 BP 122/74 08/17/23 13:12 Pulse Ox 98 08/17/23 13:12 Oxygen Delivery Method Room Air 08/17/23 13:12 Const General: cooperative, healthy appearing, comfortable, well developed and alert Nutritional Appearance: well nourished Orientation/consciousness: patient oriented x3 Limitations: no limitations Neuro General: patient oriented x3 Psych Appearance: grossly normal Mental Status: mental status grossly normal Speech and movement: Normal speech and movement present Affect: normal affect Attitude: cooperative Thought process: Normal thought process present Thought content: Normal thought content present Insight: Good insight present (Psych) Judgement: Good judgement present (Psych) Assessment & Plan Assessment & Plan (1) Opioid use disorder, mild, in sustained remission, on maintenance therapy, abuse: Code(s): F11.11 - Opioid abuse, in remission Plan: * Continue Suboxone at current dose * Follow-up 2 months--does not wish to come in sooner * Encouraged patient to call the office with any concerns or with any need for support. Patient verbalized understanding Medications: Refilled buprenorphine-naloxone 8-2 mg (Suboxone) 3 film sublingual DAILY 90 ea 1RF 30 days Coding Level of Care Code Est Pt Level 3 (95426) Diagnoses Opioid use disorder, mild, in sustained remission, on maintenance therapy, abuse F11.11
[2023-08-17 13:12] VITALS: BP 122/74; PULSE 77; O2SAT 98
== END 2023-08-17 13:56 | disposition home or self-care (01) ==
PROVIDERS: PCP Internal Medicine Medical Oncology; Visit Provider Nurse Practitioner Psychiatric/Mental Health
DX: F11.11 Opioid abuse, in remission (principal)
CPT/HCPCS: 99213

== ENCOUNTER → 2023-08-17 13:06 | Outpatient (BNVA) | payer OTHER, SELFPAY | PROVIDERS: PCP Internal Medicine Medical Oncology; Visit Provider Nurse Practitioner Psychiatric/Mental Health | DX: Z51.81 Encounter for therapeutic drug level monitoring (principal) ==

== ENCOUNTER 2023-10-18 12:58 | Outpatient (AMB) | payer OTHER, SELFPAY ==
[2023-10-18 13:15] VITALS: BP 120/60; PULSE 64; RESP 20; O2SAT 94
--- NOTE | 2023-10-18 13:15 | A.OFFVISCC_ITS ---
Intake Vital Signs 10/18/23 13:15 BP 120/60 Blood Pressure Location Rt radial Respiration 20 Pulse 64 Pulse Source Pulse Oximeter Pulse Oximetry (%) 94 Oxygen Delivery Method Room Air Intake Visit Reasons: MAT Visit Allergies Seasonal Allergies Allergy (Intermediate, Verified 08/17/23 13:13) Runny Nose HPI MAT Visit HPI Details Patient presents for follow up Prescribed Suboxone 8mg TID Doing well with recovery Shared several positive changes in his life--has been working to spend more time out of the house. Work has improved somewhat as well Future oriented, no questions or concerns at this time PENDING SALE TO [facility] Medical History Anxiety Benign prostatic hyperplasia BMI 40.0-44.9, adult BMI 45.0-49.9, adult DDD (degenerative disc disease), cervical Depression Hyperlipidemia Hypertension Liver fibrosis Lower extremity edema Migraine Morbid obesity Noncompliance with CPAP treatment Occasional tremors AUDRA (obstructive sleep apnea) Preoperative examination Shortness of breath Shortness of breath Steatosis, liver Tremor Type 2 diabetes mellitus Vitamin B1 deficiency Vitamin D deficiency Surgical History History of colonoscopy Hx of knee surgery Hx of neck surgery Hx of shoulder surgery S/P appendectomy S/P laparoscopic sleeve gastrectomy Family History Father Diabetes Mother Diabetes Sister No problems noted. Sister Depression Sister No problems noted. Son No problems noted. Son No problems noted. Daughter No problems noted. Social History Household Members: None Housing: Apartment Are you a primary progressive care unit registered nurse to a significant other at home: No Do you presently have visiting nurse or other home services: No Alcohol intake: current Alcohol intake frequency: does not drink Patient Tobacco Use Status: Former Tobacco user Quit Date: 5 years ago Tobacco use type: Cigarette e-Cigarette/Vaping Use: Currently Using service: No Current occupational status: employed Review of Systems Const Reports as per HPI and Reports no additional complaints Physical Exam Vital Signs: Last Vital Signs Pulse 64 10/18/23 13:15 Resp 20 10/18/23 13:15 BP 120/60 10/18/23 13:15 Pulse Ox 94 10/18/23 13:15 Oxygen Delivery Method Room Air 10/18/23 13:15 Const General: cooperative, healthy appearing, comfortable, well developed and alert Nutritional Appearance: well nourished Orientation/consciousness: patient oriented x3 Limitations: no limitations Neuro General: patient oriented x3 Psych Appearance: grossly normal Mental Status: mental status grossly normal Speech and movement: Normal speech and movement present Affect: normal affect Attitude: cooperative Thought process: Normal thought process present Thought content: Normal thought content present Insight: Good insight present (Psych) Judgement: Good judgement present (Psych) Assessment & Plan Assessment & Plan (1) Opioid use disorder, mild, in sustained remission, on maintenance therapy, abuse: Code(s): F11.11 - Opioid abuse, in remission Plan: * continue suboxone at current dose * follow up 2 months * encouraged to call should he need to be seen sooner Medications: Refilled buprenorphine-naloxone 8-2 mg (Suboxone) 3 film sublingual DAILY 30 days 90 ea 1RF Coding Level of Care Code Est Pt Level 3 (67194) Diagnoses Opioid use disorder, mild, in sustained remission, on maintenance therapy, abuse F11.11
== END 2023-10-18 13:48 | disposition home or self-care (01) ==
PROVIDERS: PCP Internal Medicine Medical Oncology; Visit Provider Nurse Practitioner Psychiatric/Mental Health
DX: F11.11 Opioid abuse, in remission (principal)
CPT/HCPCS: 99213

== ENCOUNTER → 2023-10-18 12:58 | Outpatient (BNVA) | payer OTHER, SELFPAY | PROVIDERS: PCP Internal Medicine Medical Oncology; Visit Provider Nurse Practitioner Psychiatric/Mental Health | DX: Z51.81 Encounter for therapeutic drug level monitoring (principal) ==

== ENCOUNTER 2023-12-14 13:01 | Outpatient (AMB) | payer OTHER, SELFPAY ==
--- NOTE | 2023-12-14 13:04 | A.OFFVISCC_ITS ---
Intake Vital Signs 12/14/23 13:07 BP 130/80 Blood Pressure Location Lt brachial Position Sitting Respiration 19 Pulse 80 Pulse Source Pulse Oximeter Pulse Oximetry (%) 98 Intake Visit Reasons: MAT Visit Allergies Seasonal Allergies Allergy (Intermediate, Verified 08/17/23 13:13) Runny Nose HPI MAT Visit HPI Details Patient presents for follow up Currently prescribed suboxone 8mg BID Bright affect, positive attitude Reporting mood has much improved No issues related to recovery home environment somewhat improved--still planning to move after cruise, but open to possibility of staying if things continue positively [facility] Medical History Anxiety Benign prostatic hyperplasia BMI 40.0-44.9, adult BMI 45.0-49.9, adult DDD (degenerative disc disease), cervical Depression Hyperlipidemia Hypertension Liver fibrosis Lower extremity edema Migraine Morbid obesity Noncompliance with CPAP treatment Occasional tremors AUDRA (obstructive sleep apnea) Preoperative examination Shortness of breath Shortness of breath Steatosis, liver Tremor Type 2 diabetes mellitus Vitamin B1 deficiency Vitamin D deficiency Surgical History History of colonoscopy Hx of knee surgery Hx of neck surgery Hx of shoulder surgery S/P appendectomy S/P laparoscopic sleeve gastrectomy Family History Father Diabetes Mother Diabetes Sister No problems noted. Sister Depression Sister No problems noted. Son No problems noted. Son No problems noted. Daughter No problems noted. Social History Household Members: None Housing: Apartment Are you a primary md do resident urgent care to a significant other at home: No Do you presently have visiting nurse or other home services: No Alcohol intake: current Alcohol intake frequency: does not drink Patient Tobacco Use Status: Former Tobacco user Quit Date: 5 years ago Tobacco use type: Cigarette e-Cigarette/Vaping Use: Currently Using service: No Current occupational status: employed Review of Systems Const Reports as per HPI and Reports no additional complaints Physical Exam Vital Signs: Last Vital Signs Pulse 80 12/14/23 13:07 Resp 19 12/14/23 13:07 BP 130/80 12/14/23 13:07 Pulse Ox 98 12/14/23 13:07 Const General: cooperative, healthy appearing, comfortable, well developed and alert Nutritional Appearance: well nourished Orientation/consciousness: patient oriented x3 Limitations: no limitations Neuro General: patient oriented x3 Psych Appearance: grossly normal Mental Status: mental status grossly normal Speech and movement: Normal speech and movement present Affect: normal affect Attitude: cooperative Thought process: Normal thought process present Thought content: Normal thought content present Insight: Good insight present (Psych) Judgement: Good judgement present (Psych) Assessment & Plan Assessment & Plan (1) Opioid use disorder, mild, in sustained remission, on maintenance therapy, abuse: Code(s): F11.11 - Opioid abuse, in remission Plan: * continue suboxone at current dose * follow up 2 months * encouraged to call should he need to be seen sooner Medications: Refilled buprenorphine-naloxone 8-2 mg (Suboxone) 3 film sublingual DAILY 90 ea 1RF 30 days Coding Level of Care Code Est Pt Level 3 (24067) Diagnoses Opioid use disorder, mild, in sustained remission, on maintenance therapy, abuse F11.11
[2023-12-14 13:07] VITALS: BP 130/80; PULSE 80; RESP 19; O2SAT 98
== END 2023-12-14 13:35 | disposition home or self-care (01) ==
PROVIDERS: PCP Internal Medicine Medical Oncology; Visit Provider Nurse Practitioner Psychiatric/Mental Health
DX: F11.11 Opioid abuse, in remission (principal)
CPT/HCPCS: 99213

== ENCOUNTER → 2023-12-14 13:01 | Outpatient (BNVA) | payer OTHER, SELFPAY | PROVIDERS: PCP Internal Medicine Medical Oncology; Visit Provider Nurse Practitioner Psychiatric/Mental Health | DX: Z51.81 Encounter for therapeutic drug level monitoring (principal) ==

== ENCOUNTER 2024-02-08 13:22 | Outpatient (AMB) | payer OTHER, SELFPAY ==
--- NOTE | 2024-02-08 13:22 | A.OFFVISCC_ITS ---
Vital Signs 02/08/24 13:25 BP 140/90 H Blood Pressure Location Lt brachial Position Sitting Pulse 90 Pulse Source Pulse Oximeter Pulse Oximetry (%) 95 Oxygen Delivery Method Room Air Intake Visit Reasons: mat visit Allergies Seasonal Allergies Allergy (Intermediate, Verified 08/17/23 13:13) Runny Nose HPI HPI mat visit: Details: Patient presents for follow up Currently prescribed Suboxone 8mg TID Will be flying to see his SOREN next week and spending time with him for a few weeks Enjoyed his cruise with his family Son will be graduating from his program at the end of February No questions or concerns at this time bright affect--working on his overall health and losing weight PFSH Medical History Anxiety Benign prostatic hyperplasia BMI 40.0-44.9, adult BMI 45.0-49.9, adult DDD (degenerative disc disease), cervical Depression Hyperlipidemia Hypertension Liver fibrosis Lower extremity edema Migraine Morbid obesity Noncompliance with CPAP treatment Occasional tremors AUDRA (obstructive sleep apnea) Preoperative examination Shortness of breath Shortness of breath Steatosis, liver Tremor Type 2 diabetes mellitus Vitamin B1 deficiency Vitamin D deficiency Surgical History History of colonoscopy Hx of knee surgery Hx of neck surgery Hx of shoulder surgery S/P appendectomy S/P laparoscopic sleeve gastrectomy Family History Father Diabetes Mother Diabetes Sister No problems noted. Sister Depression Sister No problems noted. Son No problems noted. Son No problems noted. Daughter No problems noted. Social History Household Members: None Housing: Apartment Are you a primary healthcare applications analyst to a significant other at home: No Do you presently have visiting nurse or other home services: No Alcohol intake: current Alcohol intake frequency: does not drink Patient Tobacco Use Status: Former Tobacco user Quit Date: 5 years ago Tobacco use type: Cigarette e-Cigarette/Vaping Use: Currently Using service: No Current occupational status: employed Review of Systems Const Reports as per HPI and Reports no additional complaints Physical Exam Vital Signs: Last Vital Signs Pulse 90 02/08/24 13:25 BP 140/90 H 02/08/24 13:25 Pulse Ox 95 02/08/24 13:25 Oxygen Delivery Method Room Air 02/08/24 13:25 Const General: cooperative, healthy appearing, comfortable, well developed and alert Nutritional Appearance: well nourished Orientation/consciousness: patient oriented x3 Limitations: no limitations Neuro General: patient oriented x3 Psych Appearance: grossly normal Mental Status: mental status grossly normal Speech and movement: Normal speech and movement present Affect: normal affect Attitude: cooperative Thought process: Normal thought process present Thought content: Normal thought content present Insight: Good insight present (Psych) Judgement: Good judgement present (Psych) Assessment & Plan Assessment & Plan (1) Opioid use disorder, mild, in sustained remission, on maintenance therapy, abuse: Code(s): F11.11 - Opioid abuse, in remission Category: Medical Plan: * continue suboxone at current dose * follow up 2 months Medications: Refilled buprenorphine-naloxone 8-2 mg (Suboxone) 3 film sublingual DAILY 90 ea 1RF 30 days
[2024-02-08 13:25] VITALS: BP 140/90; PULSE 90; O2SAT 95
== END 2024-02-08 13:47 | disposition home or self-care (01) ==
PROVIDERS: PCP Internal Medicine Medical Oncology; Visit Provider Nurse Practitioner Psychiatric/Mental Health
DX: F11.11 Opioid abuse, in remission (principal)
CPT/HCPCS: 99213

== ENCOUNTER → 2024-02-08 13:22 | Outpatient (BNVA) | payer OTHER, SELFPAY | PROVIDERS: PCP Internal Medicine Medical Oncology; Visit Provider Nurse Practitioner Psychiatric/Mental Health ==

== ENCOUNTER 2024-04-14 14:01 | Outpatient (AMB) | payer OTHER, SELFPAY ==
--- NOTE | 2024-04-14 14:10 | A.OFFVISCC_ITS ---
Vital Signs 04/14/24 14:11 BP 140/80 H Blood Pressure Location Lt brachial Position Sitting Pulse 58 Pulse Source Pulse Oximeter Pulse Oximetry (%) 96 Oxygen Delivery Method Room Air Intake Visit Reasons: mat visit Allergies Seasonal Allergies Allergy (Intermediate, Verified 08/17/23 13:13) Runny Nose HPI HPI mat visit: Details: Pt presents for OUD treatment follow up Currently being prescribed 8mg TID Denies any side effects related to medication Reporting weightloss and feeling more energetic PFSH Medical History Anxiety Benign prostatic hyperplasia BMI 40.0-44.9, adult BMI 45.0-49.9, adult DDD (degenerative disc disease), cervical Depression Hyperlipidemia Hypertension Liver fibrosis Lower extremity edema Migraine Morbid obesity Noncompliance with CPAP treatment Occasional tremors AUDRA (obstructive sleep apnea) Preoperative examination Shortness of breath Shortness of breath Steatosis, liver Tremor Type 2 diabetes mellitus Vitamin B1 deficiency Vitamin D deficiency Surgical History History of colonoscopy Hx of knee surgery Hx of neck surgery Hx of shoulder surgery S/P appendectomy S/P laparoscopic sleeve gastrectomy Family History Father Diabetes Mother Diabetes Sister No problems noted. Sister Depression Sister No problems noted. Son No problems noted. Son No problems noted. Daughter No problems noted. Social History Household Members: None Housing: Apartment Are you a primary cattle care worker to a significant other at home: No Do you presently have visiting nurse or other home services: No Alcohol intake: current Alcohol intake frequency: does not drink Patient Tobacco Use Status: Former Tobacco user Tobacco use type: Cigarette e-Cigarette/Vaping Use: Currently Using service: No Current occupational status: employed Review of Systems Const Reports as per HPI Physical Exam Vital Signs: Last Vital Signs Pulse 58 04/14/24 14:11 BP 140/80 H 04/14/24 14:11 Pulse Ox 96 04/14/24 14:11 Oxygen Delivery Method Room Air 04/14/24 14:11 Const General: cooperative, healthy appearing, comfortable, well developed and alert Nutritional Appearance: well nourished Orientation/consciousness: patient oriented x3 Limitations: no limitations Neuro General: patient oriented x3 Psych Appearance: grossly normal Mental Status: mental status grossly normal Speech and movement: Normal speech and movement present Affect: normal affect Attitude: cooperative Thought process: Normal thought process present Thought content: Normal thought content present Insight: Good insight present (Psych) Judgement: Good judgement present (Psych) Assessment & Plan Assessment & Plan (1) Opioid use disorder, mild, in sustained remission, on maintenance therapy, abuse: Code(s): F11.11 - Opioid abuse, in remission Category: Medical Plan: * continue suboxone at current dose * follow up 2 months Medications: Refilled buprenorphine-naloxone 8-2 mg (Suboxone) 3 film sublingual DAILY 90 ea 2RF 30 days
[2024-04-14 14:11] VITALS: BP 140/80; PULSE 58; O2SAT 96
== END 2024-04-14 14:38 | disposition home or self-care (01) ==
PROVIDERS: PCP Internal Medicine Medical Oncology; Visit Provider Nurse Practitioner Psychiatric/Mental Health
DX: F11.11 Opioid abuse, in remission (principal)
CPT/HCPCS: 99213

== ENCOUNTER → 2024-04-14 14:01 | Outpatient (BNVA) | payer OTHER, SELFPAY | PROVIDERS: PCP Internal Medicine Medical Oncology; Visit Provider Nurse Practitioner Psychiatric/Mental Health ==

== ENCOUNTER 2024-07-02 14:14 | Outpatient (AMB) | payer OTHER, SELFPAY ==
--- NOTE | 2024-07-04 22:29 | A.OFFVISCC_ITS ---
Intake Visit Reasons: mat visit Allergies Seasonal Allergies Allergy (Intermediate, Verified 08/17/23 13:13) Runny Nose HPI HPI mat visit: Details: Pt presents for OUD treatment follow up Currently being prescribed 8mg TID Denies any side effects related to medication Reporting increasing stress at home and plans to move out soon [facility] Medical History Anxiety Benign prostatic hyperplasia BMI 40.0-44.9, adult BMI 45.0-49.9, adult DDD (degenerative disc disease), cervical Depression Hyperlipidemia Hypertension Liver fibrosis Lower extremity edema Migraine Morbid obesity Noncompliance with CPAP treatment Occasional tremors AUDRA (obstructive sleep apnea) Preoperative examination Shortness of breath Shortness of breath Steatosis, liver Tremor Type 2 diabetes mellitus Vitamin B1 deficiency Vitamin D deficiency Surgical History History of colonoscopy Hx of knee surgery Hx of neck surgery Hx of shoulder surgery S/P appendectomy S/P laparoscopic sleeve gastrectomy Family History Father Diabetes Mother Diabetes Sister No problems noted. Sister Depression Sister No problems noted. Son No problems noted. Son No problems noted. Daughter No problems noted. Social History Household Members: None Housing: Apartment Are you a primary animal caretaker to a significant other at home: No Do you presently have visiting nurse or other home services: No Alcohol intake: current Alcohol intake frequency: does not drink Patient Tobacco Use Status: Former Tobacco user Tobacco use type: Cigarette e-Cigarette/Vaping Use: Currently Using service: No Current occupational status: employed Review of Systems Const Reports as per HPI and Reports no additional complaints Physical Exam Const General: cooperative, healthy appearing, comfortable, well developed and alert Nutritional Appearance: well nourished Orientation/consciousness: patient oriented x3 Limitations: no limitations Neuro General: patient oriented x3 Psych Appearance: grossly normal Mental Status: mental status grossly normal Speech and movement: Normal speech and movement present Affect: normal affect Attitude: cooperative Thought process: Normal thought process present Thought content: Normal thought content present Insight: Good insight present (Psych) Judgement: Good judgement present (Psych) Assessment & Plan Assessment & Plan (1) Opioid use disorder, mild, in sustained remission, on maintenance therapy, abuse: Code(s): F11.11 - Opioid abuse, in remission Category: Medical Plan: * continue suboxone at current dose * follow up 2 months * encouraged to call office prior to next appt if needed
== END 2024-07-02 15:14 | disposition home or self-care (01) ==
PROVIDERS: PCP Internal Medicine Medical Oncology; Visit Provider Nurse Practitioner Psychiatric/Mental Health
DX: F11.11 Opioid abuse, in remission (principal)
CPT/HCPCS: 99213

== ENCOUNTER → 2024-07-02 14:14 | Outpatient (BNVA) | payer OTHER, SELFPAY | PROVIDERS: PCP Internal Medicine Medical Oncology; Visit Provider Nurse Practitioner Psychiatric/Mental Health ==

== ENCOUNTER 2024-10-08 13:52 | Outpatient (AMB) | payer OTHER, SELFPAY ==
--- NOTE | 2024-10-08 14:07 | A.OFFVISCC_ITS ---
Intake Visit Reasons: mat visit Allergies Seasonal Allergies Allergy (Intermediate, Verified 08/17/23 13:13) Runny Nose HPI HPI mat visit: Details: Patient presents for follow up Currently prescribed Suboxone 8mg TID Doing well with current dose --denies any issues related to recovery SOREN recently diagnosed with cancer Things improving at home Review of Systems Const Reports as per HPI and Reports no additional complaints Physical Exam Const General: cooperative, healthy appearing, no acute distress and well groomed Limitations: no limitations Psych Appearance: well kempt Speech and movement: Normal speech and movement present Affect: normal affect Attitude: cooperative Thought process: Normal thought process present Thought content: Normal thought content present Insight: Good insight present (Psych) Judgement: Good judgement present (Psych) [facility] Medical History Anxiety Benign prostatic hyperplasia BMI 40.0-44.9, adult BMI 45.0-49.9, adult DDD (degenerative disc disease), cervical Depression Hyperlipidemia Hypertension Liver fibrosis Lower extremity edema Migraine Morbid obesity Noncompliance with CPAP treatment Occasional tremors AUDRA (obstructive sleep apnea) Preoperative examination Shortness of breath Shortness of breath Steatosis, liver Tremor Type 2 diabetes mellitus Vitamin B1 deficiency Vitamin D deficiency Surgical History History of colonoscopy Hx of knee surgery Hx of neck surgery Hx of shoulder surgery S/P appendectomy S/P laparoscopic sleeve gastrectomy Family History Father Diabetes Mother Diabetes Sister No problems noted. Sister Depression Sister No problems noted. Son No problems noted. Son No problems noted. Daughter No problems noted. Social History Household Members: None Housing: Apartment Are you a primary health careers instructor to a significant other at home: No Do you presently have visiting nurse or other home services: No Alcohol intake: current Alcohol intake frequency: does not drink Patient Tobacco Use Status: Former Tobacco user Tobacco use type: Cigarette e-Cigarette/Vaping Use: Currently Using service: No Current occupational status: employed Assessment & Plan Assessment & Plan (1) Opioid use disorder, mild, in sustained remission, on maintenance therapy, abuse: Code(s): F11.11 - Opioid abuse, in remission Category: Medical Plan: * continue suboxone at current dose * follow up 2 months * encouraged to call office prior to next appt if needed
--- OUTSIDE RECORDS SUMMARY | 2024-10-08 16:05 | XMS_ITS | Continuity of Care Document ---
Author Organization [facility] Address [address] [place] [id number]- Care Team Providers Care External Grinder Name Role Phone Chetan STEELE, Azael Pineda Primary Care Physician [id number] Date(s): 08/19/24 - 09/18/[address] [address] Attending Physician: Not on Staff, Attending MD Admitting Physician: Not on Staff, Admitting MD Referring Physician: Not on Staff, Referring MD Encounter Type: Pre-Outpt Allergies, Adverse Reactions, Alerts No Known Allergies Medications Alcohol Pads See Instructions, # 300 each, Maintenance, use as directed for Type 1 Diabetes Mellitus, 08/21/24 3:54:00 PM EST, Supply, 180, cm, 08/21/24 10:32:00 EST, Height, 100.2, kg, 08/16/24 18:41:00 EST, Dry Weight Start Date: 08/21/24 Stop Date: 09/20/24 Status: Ordered Quantity: 300.0 Unit: each Repeat number: 1 buPROPion 150 mg/24 hours (XL) oral tablet, extended release 270 each, 0 Refill(s), TAKE 3 TABLETS BY MOUTH EVERY DAY, 0 Refills, 09/08/24 3:23:00 PM EST, Partial fill upon patient request if the prescription is for a schedule II opioid drug. Start Date: 09/08/24 Status: Ordered Repeat number: 1 citalopram 40 mg oral tablet 40 mg, 1, tablet, By Mouth, Daily, Refills 0, Maintenance, 08/16/24 4:25:00 PM EST, Partial fill upon patient request if the prescription is for a schedule II opioid drug. Start Date: 08/16/24 Status: Ordered Repeat number: 1 Dexcom G7 Sensor Dexcom G7 Sensor, See Instructions, # 3 each, Refills 11, Tot. Refills 11, Maintenance, Change sensor every 10 days Rotate sensor site with each sensor change Dx: E11.9, 09/08/24 4:34:00 PM EST, dx e11.9, Supply, 180, cm, 09/08/24 15:25:00 EST, Height, 100.2, kg, 08/16/24 18:41:00 EST, Dry Weight Start Date: 09/08/24 Status: Ordered Quantity: 3.0 Unit: each Repeat number: 12 Freestyle Lite Lancets See Instructions, # 300 each, Maintenance, use as directed for Type 2 Diabetes Mellitus, 08/21/24 3:54:00 PM EST, Supply, 180, cm, 08/21/24 10:32:00 EST, Height, 100.2, kg, 08/16/24 18:41:00 EST, Dry Weight Start Date: 08/21/24 Stop Date: 09/20/24 Status: Ordered Quantity: 300.0 Unit: each Repeat number: 1 Freestyle Lite Monitor See Instructions, # 1 each, Maintenance, use as directed for Type 2 Diabetes Mellitus, 08/21/24 3:54:00 PM EST, Supply, 180, cm, 08/21/24 10:32:00 EST, Height, 100.2, kg, 08/16/24 18:41:00 EST, Dry Weight Start Date: 08/21/24 Stop Date: 09/20/24 Status: Ordered Quantity: 1.0 Unit: each Repeat number: 1 Freestyle Lite Test Strips See Instructions, # 300 each, Tot. Refills 5, Maintenance, use as directed for Type 2 Diabetes Mellitus, 08/21/24 3:54:00 PM EST, Supply, 180, cm, 08/21/24 10:32:00 EST, Height, 100.2, kg, 08/16/24 18:41:00 EST, Dry Weight Start Date: 08/21/24 Stop Date: 09/20/24 Status: Ordered Quantity: 300.0 Unit: each Repeat number: 6 Gvoke HypoPen Two Pack 1 mg/0.2 mL subcutaneous solution = 1 mg, Subcutaneous Infusion, Once, To be used in case of severe low blood sugar, BG <50 mg/DL.Contacted EMS after use. may repeat once in 15 minutes, # 2 each, 2 Refills, Soft Stop, 09/08/24 4:04:00 PM EST, [facility], Dx: E11.9, 180, cm, 09/08/24 15:25:00 EST, Height, 100.2, kg, 08/16/24 18:41:00 EST, Dry Weight Start Date: 09/08/24 Status: Ordered Quantity: 2.0 Unit: each Repeat number: 3 Humalog Kwik Pen 100 units/mL subcutaneous injection = 6 units, Subcutaneous Injection, 3 times a day before meals, 100 - 149 6 units 150 - 199 7 units 200 - 249 8 units 250 - 299 9 units 300 - 349 10 units 350 - 399 11 units 400 - 449 12 units 450 - 500 13 units, # 30 mL, 11 Refills, Maintenance, 09/08/24 3:49:00 PM EST, Solution, [facility], dx e11.9, 180, cm, 09/08/24 15:25:00 EST, Height, 100.2, kg, 08/16/24 18:41:00 EST, Dry Weight Start Date: 09/08/24 Stop Date: 10/07/24 Status: Ordered Quantity: 30.0 Unit: mL Repeat number: 12 lamotrigine 100 mg oral tablet 100 mg, 1, tablet, By Mouth, Daily, Refills 0, Maintenance, 05/03/23 3:27:00 PM EDT, Partial fill upon patient request if the prescription is for a schedule II opioid drug. Start Date: 05/03/23 Status: Ordered Repeat number: 1 Lantus Solostar Pen 100 units/mL subcutaneous solution = 22 units, Subcutaneous Injection, Daily at bedtime, # 15 mL, 11 Refills, Maintenance, 09/08/24 3:49:00 PM EST, [facility], dx e11.9, 180, cm, 09/08/24 15:25:00 EST, Height, 100.2, kg, 08/16/24 18:41:00 EST, Dry Weight Start Date: 09/08/24 Stop Date: 09/03/25 Status: Ordered Quantity: 15.0 Unit: mL Repeat number: 12 Pen [place], 31 G x 5 mm BD Ultra Fine III See Instructions, # 300 each, Maintenance, use as directed for Type 2 Diabetes Mellitus, 08/21/24 3:54:00 PM EST, Supply, 180, cm, 08/21/24 10:32:00 EST, Height, 100.2, kg, 08/16/24 18:41:00 EST, Dry Weight Start Date: 08/21/24 Stop Date: 09/20/24 Status: Ordered Quantity: 300.0 Unit: each Repeat number: 1 propranolol 160 mg oral capsule, extended release 0 Refills, Maintenance, 09/03/24 11:38:00 AM EST, Partial fill upon patient request if the prescription is for a schedule II opioid drug. Start Date: 09/03/24 Status: Ordered Repeat number: 1 simvastatin 20 mg oral tablet 20 mg, 1, tablet, By Mouth, Daily before dinner, Refills 0, Maintenance, 05/03/23 3:28:00 PM EDT, Partial fill upon patient request if the prescription is for a schedule II opioid drug. Start Date: 05/03/23 Status: Ordered Repeat number: 1 Suboxone 8 mg-2 mg sublingual film 3 film, Sublingual, Daily, 0 Refills, Maintenance, 05/03/23 3:31:00 PM EDT, Partial fill upon patient request if the prescription is for a schedule II opioid drug. Start Date: 05/03/23 Status: Ordered Repeat number: 1 SUMAtriptan 100 mg oral tablet TAKE 1 TABLET BY MOUTH ONCE A DAY NEEDED Start Date: 09/03/24 Status: Ordered Repeat number: 1 Problem List Condition Confirmation Course Effective Dates Status Health St atus Informant Obese class I Confirmed Active Opioid dependence Confirmed Active Type 2 diabetes mellitus Confirmed Active Social History Social History Type Response Smoking Status Former smoker, quit more than 30 days ago entered on: 10/31/23 Sex Sex Representation Male (finding) Patient Care team information Care Team Personnel Name: Penny Babin RN Position: [facility] Supv Member Role: Primary Care Nurse Name: Jackelin Masters Position: [facility] RN Member Role: Primary Care Nurse Name: Penny Francis RN Position: [facility] RN Member Role: Primary Care Nurse Name: Saige Morrison RN Position: [facility] RN Member Role: Primary Care Nurse Name: Azael Benton MD Position: [facility] Physician - Oncology Member Role: PCP Address: [address] [place] [address] [address] Azael Benton III, [place] [address]- Telecom: Name: Taj Tena RN Position: [facility] RN Member Role: Primary Care Nurse Care Team Related Persons Name: ALBERTO MYERS Insurance Providers Guarantor name[facility] Information #: 1 Payer: [facility] PPO Member Number: NA Policy Number: NA Group Number: NA
--- OUTSIDE RECORDS SUMMARY | 2024-10-08 16:05 | XMS_ITS | Continuity of Care Document ---
Author Organization [facility] Address [address] [place] [address]- Care Team Providers Care Pipeline Executive Name Role Phone Chetan STEELE, Azael Pineda Primary Care Physician [phone] Encounter [facility] Date(s): 08/16/24 - 09/15/24 [facility] [address] [place] [address]- Attending Physician: Jannette Henry Admitting Physician: AdmtrJannette Referring Physician: Admtr, [id number] Encounter Type: Triage Allergies, Adverse Reactions, Alerts No Known Allergies [...] Refills, Soft Stop, 09/08/24 4:04:00 PM EST, [facility], Dx: E11.9, 180, cm, 09/08/24 [...] Refills, Maintenance, 09/08/24 3:49:00 PM EST, Solution, [facility], dx e11.9, 180, cm, 09/08/24 15:25:00 [...] Refills, Maintenance, 09/08/24 3:49:00 PM EST, [facility] dx e11.9, 180, cm, 09/08/24 15:25:00 EST, Height, 100.2, kg, 08/16/24 18:41:00 EST, Dry Weight Start Date: 09/08/24 Stop Date: 09/03/25 Status: Ordered Quantity: 15.0 Unit: mL Repeat number: 12 Pen [place], 31 G x 5 mm BD Ultra [...] Care Nurse Name: Penny Francis RN Position: [facility] RN Member Role: Primary Care Nurse Name: Saige Morrison RN Position: [facility] RN Member Role: Primary Care Nurse Name: Azael Benton MD Position: [facility] Physician - Oncology Member Role: PCP Address: [address] [place] [address] [address] Azael Benton III, [place] [address]- Telecom: Name: Taj Tena RN Position: [facility] RN Member Role: Primary Care Nurse Care Team Related Persons Name: ALBERTO MYERS Insurance Providers Guarantor name: [facility] Information #: 1 Payer: [facility] PPO Member Number: NA Policy Number: NA Group Number: NA
--- OUTSIDE RECORDS SUMMARY | 2024-10-08 16:06 | XMS_ITS | Continuity of Care Document ---
Author Organization [facility] Address [address] [place] [address] [address] [place] [address]- Care Team Providers Care Washing Machine Loader Name Role Phone Chetan STEELE, Azael Pineda Primary Care Physician [phone] [id number] 09/[facility] - 09/10/[address] [place], [place] [address] Attending Physician: Angelina Lowry Encounter Type: Office Visit Allergies, Adverse Reactions, Alerts No Known Allergies [...] Refills, Soft Stop, 09/08/24 4:04:00 PM EST, [facility], Dx: E11.9, 180, cm, [...] Refills, Maintenance, 09/08/24 3:49:00 PM EST, Solution, [facility], dx e11.9, 180, cm, [...] Refills, Maintenance, 09/08/24 3:49:00 PM EST, [facility] dx e[facility].9, 180, cm, 09/08/24 15:25:00 EST, Height, 100.2, kg, 08/16/24 18:41:00 EST, Dry Weight Start Date: 09/08/24 Stop Date: 09/03/25 Status: Ordered Quantity: 15.0 Unit: mL Repeat number: 12 Pen [place], 31 G x 5 mm BD Ultra [...] Active Type 2 diabetes mellitus Confirmed Active Vital Signs Most recent to oldest [Reference Range]: 1 Height 180 cm (09/03/24 11:30 AM) Weight 98.7 kg (09/03/24 11:30 AM) Pulse Rate [55-90 bpm] 69 bpm (09/03/24 11:30 AM) Body Mass Index [18.5-24.99 kg/m2] 30.46 kg/m2 *>HHI* (09/03/24 11:30 AM) Blood Pressure [90-138/55-84 mm Hg] 122/ 87mm Hg (09/03/24 11:30 AM) Temperature [96.8-100.4 DegF] 95.2 DegF *L* (09/03/24 11:30 AM) Blood pressure sites Arm, left (09/03/24 11:30 AM) Temperature Route Temporal (09/03/24 11:30 AM) Social History Social History Type Response Smoking Status Former smoker, quit more than 30 days ago entered on: 10/31/23 Sex Sex Representation Male (finding) Patient Care team information Care Team Personnel Name: Penny Babin RN Position: S RN Supv Member Role: Primary Care Nurse Name: Jackelin Masters Position: S RN Member Role: Primary Care Nurse Name: Penny Francis RN Position: S RN Member Role: Primary Care Nurse Name: Saige Morrison RN Position: S RN Member Role: Primary Care Nurse Name: Azael Benton MD Position: [facility] Physician - Oncology Member Role: PCP Address: [address] [place] [address] [facility] Azael Benton III, MD [place], [place] [address] Telecom: Name: Taj Tena RN Position: S RN Member Role: Primary Care Nurse Care Team Related Persons Name: ALBERTO MYERS Insurance Providers Guarantor name: CARTER MYERS Health Plan Information #: 1 Payer: [facility] PPO Member Number: [id number] Policy Number: NA Group Number: [id number] Health Plan Information #: 2 Payer: [facility] PPO Member Number: [id number] Policy Number: NA Group Number: NA
--- OUTSIDE RECORDS SUMMARY | 2024-10-08 16:06 | XMS_ITS | Continuity of Care Document ---
Author Organization [facility] Latoya Vizcarra [facility] Address [address] [address]- Care Team Providers Care Seo Associate Name Role Phone Chetan STEELE, Azael Pineda Primary Care Physician Encounter [facility] Date(s): 08/27/24 - 09/26/24 [facility] Latoya Vizcarra [address] [address]- Encounter Type: Triage Allergies, Adverse Reactions, Alerts [...] Refills, Soft Stop, 09/08/24 4:04:00 PM EST, [facility], Dx: E11.9, 180, cm, [...] Refills, Maintenance, 09/08/24 3:49:00 PM EST, Solution, [facility] 3, dx e11.9, 180, cm, 09/08/24 15:25:00 [...] Refills, Maintenance, 09/08/24 3:49:00 PM EST, Solution, [facility] 3, dx e11.9, 180, cm, 09/08/24 15:25:00 EST, Height, 100.2, kg, 08/16/24 18:41:00 EST, Dry Weight Start Date: 09/08/24 Stop Date: 09/03/25 Status: Ordered Quantity: 15.0 Unit: mL Repeat number: 12 Pen [place], 31 G x 5 mm BD Ultra [...] Team Personnel Name: Penny Babin RN Position: [facility] Sup[facility] Member Role: Primary Care Nurse Name: Jackelin Masters Position: S RN Member Role: Primary Care Nurse Name: Penny Francis RN Position: S RN Member Role: Primary Care Nurse Name: Saige Morrison RN Position: S RN Member Role: Primary Care Nurse Name: Azael Benton MD Position: [facility] Physician - Oncology Member Role: PCP Address: [address] [place] [address] [address] Azael Benton III, [place] [address]- Telecom: Name: Taj Tena RN Position: [facility] RN Member Role: Primary Care Nurse Care Team Related Persons Name: HAROLDOALBERTO ESTRELLA Insurance Providers Guarantor name: [facility] Information #: 1 Payer: [facility] PPO Member Number: NA Policy Number: NA Group Number: NA
--- OUTSIDE RECORDS SUMMARY | 2024-10-08 16:06 | XMS_ITS | Continuity of Care Document ---
Author Organization [facility] ter Address [address] [place] [address]- Care Team Providers Care Remediation Technician Name Role Phone Chetan STEELE, Azael Pineda Primary Care Physician [phone] [id number] Date(s): 08/19/24 - 09/18/[address] [address] Attending Physician: Not on Staff, Attending MD [...] Refills, Soft Stop, 09/08/24 4:04:00 PM EST, [facility], Dx: E11.9, 180, [...] Refills, Maintenance, 09/08/24 3:49:00 PM EST, Solution, [facility], dx e11.9, 180, cm, 09/08/24 [...] Refills, Maintenance, 09/08/24 3:49:00 PM EST, [facility] dx e11.9, 180, cm, 09/08/24 15:25:00 EST, Height, 100.2, kg, 08/16/24 18:41:00 EST, Dry Weight Start Date: 09/08/24 Stop Date: 09/03/25 Status: Ordered Quantity: 15.0 Unit: mL Repeat number: 12 Pen [place], 31 G x 5 mm BD Ultra [...] Care Nurse Name: Penny Francis RN Position: [facility] RN Member Role: Primary Care Nurse Name: Saige Morrison RN Position: [facility] RN Member Role: Primary Care Nurse Name: Azael Benton MD Position: [facility] Physician - Oncology Member Role: PCP Address: [address] [place] [address] [address] Azael Benton III, [place] [address]- Telecom: Name: Taj Tena RN Position: [facility] RN Member Role: Primary Care Nurse Care Team Related Persons Name: ALBERTO MYERS Insurance Providers Guarantor name[facility] Information #: 1 Payer: [facility] PPO Member Number: NA Policy Number: NA Group Number: NA
--- OUTSIDE RECORDS SUMMARY | 2024-10-08 16:06 | XMS_ITS | Continuity of Care Document ---
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 Name Role Phone Azael Benton MD Primary Care Physician [id number] Date(s): 09/03/24 - 10/03/[address] [place], [place] [address] Attending Physician: Jannette Henry Admitting Physician: Jannette Henry Referring Physician: AdmtrJannette Encounter Type: Triage Allergies, Adverse Reactions, Alerts [...] Refills, Soft Stop, 09/08/24 4:04:00 PM EST, [facility], Dx: E11.9, 180, cm, 09/08/24 [...] Refills, Maintenance, 09/08/24 3:49:00 PM EST, Solution, [facility], dx e11.9, 180, cm, 09/08/24 15:25:00 [...] Refills, Maintenance, 09/08/24 3:49:00 PM EST, Solution, [facility], dx e11.9, 180, cm, 09/08/24 15:25:00 EST, Height, 100.2, kg, 08/16/24 18:41:00 EST, Dry Weight Start Date: 09/08/24 Stop Date: 09/03/25 Status: Ordered Quantity: 15.0 Unit: mL Repeat number: 12 Pen [place], 31 G x 5 mm BD Ultra [...] Personnel Name: Penny Babin RN Position: [facility] RN Supv Member Role: Primary Care Nurse Name: Jackelin Masters Position: [facility] RN Member Role: Primary Care Nurse Name: Penny Francis RN Position: [facility] RN Member Role: Primary Care Nurse Name: Saige Morrison RN Position: [facility] RN Member Role: Primary Care Nurse Name: Azael Benton MD Position: [facility] Physician - Oncology Member Role: PCP Address: [address] [place] [address] [address] Azael Benton III, [place] [address]- Telecom: Name: Taj Tena RN Position: [facility] RN Member Role: Primary Care Nurse Care Team Related Persons Name: ALBERTO MYERS Insurance Providers Guarantor name: CARTER [facility] Plan Information #: 1 Payer: [facility] PPO Member Number: NA Policy Number: NA Group Number: NA
--- OUTSIDE RECORDS SUMMARY | 2024-10-08 16:06 | XMS_ITS | Continuity of Care Document ---
Author Organization [facility] Address [address] [place] [address] [address] [place] [address]- Care Team Providers Care Manager Of Applications Development Name Role Phone Chetan STEELE, Azael Pineda Primary Care Physician [phone] Encounter [facility] Date(s): 08/27/24 - 09/26/[address] [place] [address]- Encounter Type: Triage Allergies, Adverse Reactions, Alerts [...] Refills, Soft Stop, 09/08/24 4:04:00 PM EST, [facility], Dx: E11.9, 180, cm, 09/08/24 [...] Refills, Maintenance, 09/08/24 3:49:00 PM EST, Solution, [facility], dx e11.9, 180, cm, 09/08/24 15:25:00 [...] Solution, [facility], dx e11.9, 180, cm, 09/08/24 15:25:00 EST, Height, 100.2, kg, 08/16/24 18:41:00 EST, Dry Weight Start Date: 09/08/24 Stop Date: 09/03/25 Status: Ordered Quantity: 15.0 Unit: mL Repeat number: 12 Pen [place], 31 G x 5 mm BD Ultra [...] Personnel Name: Penny Babin RN Position: [facility] Supv Member Role: Primary Care Nurse Name: Jackelin Masters Position: S RN Member Role: Primary Care Nurse Name: Penny Francis RN Position: S RN Member Role: Primary Care Nurse Name: Saige Morrison RN Position: S RN Member Role: Primary Care Nurse Name: Azael Benton MD Position: [facility] Physician - Oncology Member Role: PCP Address: [address] [place] [address] [address] Azael Benton III, [place] [address]- Telecom: Name: Taj Tena RN Position: [facility] RN Member Role: Primary Care Nurse Care Team Related Persons Name: ALBERTO MYERS Insurance Providers Guarantor name: [facility] Information #: 1 Payer: [facility] PPO Member Number: NA Policy Number: NA Group Number: NA
== END 2024-10-08 14:54 | disposition home or self-care (01) ==
PROVIDERS: PCP Internal Medicine Medical Oncology; Visit Provider Nurse Practitioner Psychiatric/Mental Health
DX: F11.11 Opioid abuse, in remission (principal)
CPT/HCPCS: 99213

== ENCOUNTER → 2024-10-08 13:52 | Outpatient (BNVA) | payer OTHER, SELFPAY | PROVIDERS: PCP Internal Medicine Medical Oncology; Visit Provider Nurse Practitioner Psychiatric/Mental Health ==

== ENCOUNTER 2024-12-03 10:21 | Outpatient (AMB) | payer OTHER, SELFPAY ==
--- NOTE | 2024-12-03 10:09 | A.OFFVIS_ITS ---
VS Expanded 12/03/24 10:11 Height 5 ft 11 in Weight 232 lb BMI 32.4 Intake Visit Reasons: TV PO LSG 12/22/21 *SEE COMMENTS* Allergies Seasonal Allergies Allergy (Intermediate, Verified 08/17/23 13:13) Runny Nose Medication List - Last Reconciled 12/03/24 by MICK Flynn buprenorphine-naloxone 8-2 mg (Suboxone) 3 film sublingual DAILY 30 days bupropion HCl XL 450 mg PO DAILY citalopram 40 mg PO DAILY insulin glargine (Lantus Solostar U-100 Insulin) 22 units subcut QPM insulin lispro (Humalog KwikPen (U-100) Insulin) 1 sliding scale dose subcut USEASDIRECTD lamotrigine 100 mg PO DAILY metformin 1,000 mg PO BID propranolol ER 160 mg PO DAILY tirzepatide (Mounjaro) 2.5 mg subcut QWEEK HPI Comments Details: This?is a?59?yo male who is s/p LSG 12/22/2021. Presents for 3 year post op visit. Weight gain of 22lbs since last OV in 2021.? No complaints of nausea, emesis, abdominal pain or reflux, or constipation. Patient was recently started on Mounjaro 3 weeks ago by his early morning babysitter. Had to restart treatment for diabetes- meds updated above. Patient is experiencing issues of excess skin of abdomen. Gets rashes in skin folds. Moisture collects here and smells unpleasant, has to clean frequently and shower daily but even that sometimes does not relieve the odor/moisture completely. Has tried powder to relieve this also. Has difficulty going to the bathroom/voiding because he has to lift the skin up in order to fully empty. Other activities of daily living are more difficult such as bending over which is uncomfortable and challenging. He reports some back pain due to the heaviness of the excess skin. [facility] Medical History Anxiety Benign prostatic hyperplasia BMI 40.0-44.9, adult BMI 45.0-49.9, adult DDD (degenerative disc disease), cervical Depression Hyperlipidemia Hypertension Liver fibrosis Lower extremity edema Migraine Morbid obesity Noncompliance with CPAP treatment Occasional tremors AUDRA (obstructive sleep apnea) Preoperative examination Shortness of breath Shortness of breath Steatosis, liver Tremor Type 2 diabetes mellitus Vitamin B1 deficiency Vitamin D deficiency Surgical History History of colonoscopy Hx of knee surgery Hx of neck surgery Hx of shoulder surgery S/P appendectomy S/P laparoscopic sleeve gastrectomy Family History Father Diabetes Mother Diabetes Sister No problems noted. Sister Depression Sister No problems noted. Son No problems noted. Son No problems noted. Daughter No problems noted. Social History Household Members: None Housing: Apartment Are you a primary customer care voice consultant to a significant other at home: No Do you presently have visiting nurse or other home services: No Alcohol intake: current Alcohol intake frequency: does not drink Patient Tobacco Use Status: Former Tobacco user Tobacco use type: Cigarette e-Cigarette/Vaping Use: Currently Using service: No Current occupational status: employed Telehealth Telehealth Telehealth Platform: Telephone Location of provider rendering services: other Location of patient: address on file Patient Identification confirmed using: Name, : Yes Telehealth method: voice only Patient verbally consented to treatment: Yes Patient verbally consented to billing insurance company: Yes Patient informed of any privacy concerns related to visit: Yes Minutes spent on Phone/Video with Pt.: 16 Assessment & Plan Assessment & Plan (1) Obesity: Code(s): E66.9 - Obesity, unspecified Category: Medical (2) S/P laparoscopic sleeve gastrectomy: Code(s): Z98.84 - Bariatric surgery status Category: Surgical Plan Pt recently started Mounjaro to help with weight loss. Will send [facility] donavan info. Clotrimazole ointment ordered for rashes of excess skin of abdomen. His insurance requires systemic antimicrobials. Need to confirm ? tobacco use at next visit. RTC 4-6 weeks for in person visit/physical exam of excess skin.
[2024-12-03 10:11] VITALS: BMI 32.4
--- OUTSIDE RECORDS SUMMARY | 2024-12-03 12:06 | XMS_ITS | Clinical Summary ---
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
--- OUTSIDE RECORDS SUMMARY | 2024-12-03 12:06 | XMS_ITS ---
Author Organization [facility] Address [address] [place] [address] Care Team Providers Care [employer] Ax Consultant Name Role Phone Azael Benton MD Primary Care Provider Unavailab Abilio Castelan Jr Unavailable Allergies No Known Allergies REASON FOR VISIT Patient presents today for diarrhea Medications Medication SIG (Take, Route, Frequency, Duration) Notes Start Date End Date Status Metoprolol Succinate ER 100 MG TAKE 1 TABLET BY MOUTH EVERY DAY Oral Once a day Active buPROPion HCl ER (XL) 150 MG TAKE 3 TABLETS BY MOUTH EVERY DAY Oral Once a day Active lamoTRIgine 100 MG TAKE 1 TABLET BY MICHAEL TH EVERY DAY Oral Once a day Active Citalopram Hydrobromide 20 MG TAKE 1 TABLET BY MOUTH EVERY DAY Orally Once a day Active SUMAtriptan Succinate 100 MG TAKE 1 TABLET BY MOUTH EVERY DAY NEEDED Oral Once a day as needed Active Suboxone 8-2 MG 1 tablet under the tongue and allow to dissolve Sublingual Once a day Active Immunizations Vaccine Route Administration Date Status Comme nts Influenza Unknown 06/27/2023 Refused Social History Tobacco Use: Social History Observation Description Date Details (start date - stop date) Former Smoker NA - NA Tobacco Use/Smoking Question Answer Notes Patient is a former smoker How long has it been since you last smoked? > 10 years Alcohol Screen Question Answer Notes Did you have a drink containing alcohol in the p ast year? No Points 0 Interpretation Negative Problems Problem Type SNOMED Code ICD Code Onset Dates Problem Status W/U Status Risk Notes Problem [id number] Irritable bowel syndrome with predominant constipation (K58.1) Active confirmed Vital Signs Temperature 96.9 degrees Fahrenheit 06/27/20 23 Blood pressure systolic 000 mm Hg 06/27/20 23 Blood pressure diastolic 00 mm Hg 023 Height 71 in 06/27/2023 Weight 234 lb 8 oz lbs 06/27/2023 BMI 32.70 kg/m2 06/27/2023 Encounters Encounter Location Date Provider Diagnosis [facility] [address] [place] [address] 06/27/2023 Abilio Phan Jr Irritable bowel syndrome with predominant constipation K58.1 Assessments Encounter Date Diagnosis (ICD Code) Assessment Notes Treatment Notes Treatment Clinical Notes Section Notes 06/27/2023 Irritable bowel syndrome with predominant constipation (ICD-10 - K58.1) Irritable bowel syndrome material was printed We discussed his symptoms today. These appear most consistent with irritable bowel syndrome with constipation predominance. We recommended a high-fiber diet, and beginning Metamucil alternating with MiraLax, titrating the dose as needed to improve his bowel pattern. He will try this and let us know how he's doing a month. Followup will be on a p.r.n. basis. Plan Of Treatment Treatment Notes Assessment Notes Irritable bowel syndrome wit h predominant constipation Irritable bowel syndrome material was printed Next Appt Details Follow Up: 1 Year, Reason: Progress Notes * HAROLDOCARTER ESTRELLA RDOB:[birth year] (57 yo M)Acc No.[id number]:06/27/2023 Progress Notes Patient:?CARTER MYERS R Provider:?Abilio Phan MD :1965???Age:57 Y???Sex:Male Bairon e:06/27/2023 Address:[address] [place] [address] [id number] Pcp:Azael Benton MD Subjective: * Chief Complaints: * ???1. Patient presents today for diarrhea. * HPI: ???New symptom(s):? The patient is a pleasant 57-year-old man seen today in followup. He was last seen with acute ischemic colitis in May of 2022 when he presented with rectal bleeding and pain. 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 We reviewed this today. ?Today he complains of bowel movements occurring once every one to 2 weeks. Initially stool can be hard, followed by liquid stools. There is occasional rectal bleeding from hard stools. He reports his diet is somewhat low in fiber, and he has no change in his medications. Weight has been stable in the 230-35 range. 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 Ten-year followup. * Surgical History:?shoulder s urgery , neck surgery x2 , Laparoscopic sleeve gastrectomy with gastropexy 01/06. * Hospitalization/Major Diagno stic Procedure:?Denies Past Hospitalization. * Family History:?Father: layton nicole?Mother: , diagnosed with Diabetes.? No family history of liver cancer or colon cancer. * Social History:?Tobacco Use:?Tobacco Use/Smoking?Patient is a?former smoker,?How long has it been since you last smoked??> 10 years.?Drugs/Alcohol:?Alcohol Screen?Did you have a drink containing alcohol in the past year??No,?Points?0,?Interpretation?Negative.?Miscellaneous:?Marital status: . 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 * Medications:?Taking Suboxone 8-2 MG Tablet Sublingual 1 tablet under the tongue and allow to dissolve Sublingual Once a day, Taking SUMAtriptan Succinate 100 MG Tablet TAKE 1 TABLET BY MOUTH EVERY DAY NEEDED Oral Once a day, Notes: as needed, Taking buPROPion HCl ER (XL) 150 MG Tablet Extended Release 24 Hour TAKE 3 TABLETS BY MOUTH EVERY DAY Oral Once a day, Taking Citalopram Hydrobromide 20 MG Tablet TAKE 1 TABLET BY MOUTH EVERY DAY Orally Once a day, Taking lamoTRIgine 100 MG Tablet TAKE 1 TABLET BY MOUTH EVERY DAY Oral Once a day, Taking Metoprolol Succinate ER 100 MG Tablet Extended Release 24 Hour TAKE 1 TABLET BY MOUTH EVERY DAY Oral Once a day, Discontinued Simvastatin 20 MG Tablet TAKE 1 TABLET BY MOUTH EVERY DAY Oral Once a day, Discontinued Tamsulosin HCl 0.4 MG Capsule TAKE 1 CAPSULE BY MOUTH TWICE A DAY Oral BID, Discontinued MiraLax (colon prep) 17 GM/SCOOP Powder mixed with Gatorade or Crystal Light Orally begin at 5:00 p.m. the day before the procedure, Discontinued Proctofoam HC 1-1 % Foam 1 application Externally Three times a day, Discontinued Apriso 0.375 GM Capsule Extended Release 24 Hour 4 capsules in the morning Orally Once a day, Discontinued Azithromycin 500 MG Tablet 1 tablet Orally , Medication List reviewed and reconciled with the patient * Allergies:?N.K.D.A. Objective: * Vitals:?Wt: 234 lb 8 oz, Ht: 71 in, BMI:32.70 Index, BP: 000/00 mm Hg, Temp: 96.9. * Examination: ???General Examination: ???On examination today, he appears well. Skin is anicteric. Lungs are clear. Heart shows regular rate and rhythm. Abdomen soft without focal mass or tenderness. Assessment: * Assessment: 1.?Irritable bowel syndrome with predominant constipation - K58.1 (Primary)? We discussed his symptoms to day. These appear most consistent with irritable bowel syndrome with constipation predominance. We recommended a high-fiber diet, and beginning Metamucil alternating with MiraLax, titrating the dose as needed to improve his bowel pattern. He will try this and let us know how he's doing a month. Followup will be on a p.r.n. basis. Plan: * Treatment: * Immunizations:? Influenza (Not administered - Refused: Patient decision) * Procedure Codes:?3017F COLOR ECTAL CA SCREEN DOC REV, G9903 Pt scrn tbco id as non user, G9745 DOC RSN FOR NOT SCREEN/REC F/U HBP * Preventive Medicine:? ??Counseling:?Care goal follow-up plan:?Above Normal BMI Follow-up?Giving encouragement to exercise,?BMI management provided?Yes.? * Follow Up:?1 Year * * Sign off status: Completed true * Provider:?Abilio Phan MD Date:?1 Generated for Sweta gilbert/Alyse/eTransmitting on:?12/03/2024 12:06 PM EDT History and Physical Notes * HPI (History of Present Illness) Category Sub-Category Detail Notes Category Not es New symptom(s) The patient is a pleasant 57-year-old man seen today in followup. He was last seen with acute ischemic colitis in May of 2022 when he presented with rectal bleeding and pain. 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 We reviewed this today. Today he complains of bowel movements occurring once every one to 2 weeks. Initially stool can be hard, followed by liquid stools. There is occasional rectal bleeding from hard stools. He reports his diet is somewhat low in fiber, and he has no change in his medications. Weight has been stable in the 230-35 range. Examination Category Sub-Category Detail Notes Category Not es General Examination On exami nation today, he appears well. Skin is anicteric. Lungs are clear. Heart shows regular rate and rhythm. Abdomen soft without focal mass or tenderness.
--- OUTSIDE RECORDS SUMMARY | 2024-12-03 12:06 | XMS_ITS | Patient Health Record ---
Author Organization Azael Benton III, MD Address [address] [place] [address] Care Team Providers Care Retail Sales Director Name Role Phone Azael Benton Primary Care Provider [phone] Allergies Allergen (clinical drug ingredient) Drug/Non Drug Allergy documented on EMR Reaction Allergy Type Onset Date Status No Known Drug Allergy Unknown Drug Allergy Active Reason For Referral No Information Medications Medication SIG (Take, Route, Frequency, Duration) Notes Start Date End Date Status buPROPion HCl ER (XL) 150 MG take 3 tablets by mouth every day Orally Once a day Active Primidone 50 MG TAKE 1/2 TABLET BY MOUTH EVERY DAY AT BEDTIME Oral Active lamoTRIgine 100 MG 1 tablet Orally Once a day Active Lisinopril 2.5 MG 1 tablet Orally Once a day Active Citalopram Hydrobromide 40 MG take 1 tablet by mouth every day Orally Once a day Active Metoprolol Succinate ER 100 MG 1 tablet Orally Once a day Active Suboxone 8-2 MG 1 film under the tongue and allow to dissolve Sublingual three times a day tid (3 a day) Active Advocate Lancets - as directed - Lancet s check glucose twice a day 09/01/2019 Active metFORMIN HCl 500 MG as directed Orally 2 tablets twice a day Active Simvastatin 20 MG 1 tablet Orally Once a day Active FreeStyle Lite - as directed use as directed use to test blood sugars twice a day 09/08/2019 Active Tamsulosin HCl 0.4 MG TAKE 1 CAPSULE BY MOUTH TWICE A DAY Active Lantus SoloStar 100 UNIT/ML as directed Subcutaneous Active FreeStyle Lite Test - as directed In Vit ro use with glucometer to test blood sugars twice a day 09/08/2019 Active SUMAtriptan Succinate 100 MG 1 tablet as needed Orally Once a day Active Immunizations Vaccine Route Administration Date Status Comme nts COVID- 19 Vaccine Unknown 01/31/2021 Administered COVID- 19 Vaccine Unknown 02/28/2021 Administered Social History Tobacco Use: Social History Observation Description Date Details (start date - stop date) Former Smoker NA - NA Sex Assigned At : Social History Observation Description Sex Assigned At Male Tobacco Use/Smoking Question Answer Notes Patient is a former smoker How long has it been since you last smoked? > 10 years Additional Findings: Tobacco Non-User Ex-cigaret te smoker Alcohol Screen Question Answer Notes Did you have a drink containing alcohol in the p ast year? No Points 0 Interpretation Negative Problems Problem Type SNOMED Code ICD Code Onset Dates Problem Status W/U Status Risk Notes Problem 5628606 Former smoker (Z87.891) Active confirmed He has a plan to prevent relapse in times of stress. We discussed how to prevent relapse at length. Problem 30957923 Anxiety (F41.9) Active confirmed He continues with his therapy. She has been compliant with all his medications. Problem 147111880 Mixed hyperlipidemia (E78.2) Active confirmed A fasting lipid profile has been ordered. His lipids have been stable. He will continue to lose weight and consume his current diet. Problem 909638147 Essential tremor (G25.0) Active confirmed He says the tremor in his hands has become worse. It is an intention tremor and is not present at rest. However, it seems very prominent. At his request a neurology examination will be done to rule out a parkinsonian syndrome. Problem 563457052 Obesity (BMI 30-39.9) (E66.9) Active confirmed His weight has been stable over the last 6 months. Encouraged him to participate in a weight loss program and to continue to lose weight as he has in the past. Problem 02462679 Essential hypertension (I10) Active confirmed His blood pressure was stable at 128/82 on his last visit. We reviewed his sodium restriction and his weight loss strategy. Problem 07155939 Obstructive sleep apnea (G47.33) Active confirmed He has had the sleep study and will have the CPAP titration again. Problem 413493933 Rib pain (R07.81) Active confirmed He has likely disrupted the joint between bone and cartilage. He was told this would take up to 6 weeks to heal. He was given a prescription for tramadol to take for severe pain that was refractory to acetaminophen or ibuprofen. Problem 259937360 Herpes zoster without complication (B02.9) Active confirmed The eruption has responded to treatment and is resolving. There is no pain at this time. Problem Depressive disorder (disorder) (54185594) Depression, unspecified depression type (F32.9) Active confirmed He is receiving counseling and medication. His doing well and is no longer using any opiate but Suboxone. He is compliant with antidepressant . He has no suicidal thoughts at this time. His depression is fairly stable but perhaps a little worse. His medications were reviewed. Problem 142911690 Type 2 diabetes mellitus without complication, without long-term current use of insulin (E11.9) Active confirmed He has lost one more pound and is compliant with his medication. He reportss glucose levels under 150. Comprehensive blood work with a hemoglobin A1c, microalbumin, fasting lipid profile and fasting glucose have bbeen ordered. Problem Benign prostatic hypertrophy without outflow obstruction (095359689) Benign prostatic hyperplasia, unspecified whether lower urinary tract symptoms present (N40.0) Active confirmed His symptoms of nocturia are stable. He has had no infections and rises once a night. Current therapy was continued. We have discussed lifestyle modification as a way of reducing nocturia. Problem 2046302 Migraine with aura and without status migrainosus, not intractable (G43.109) Active confirmed His sumatriptan was refilled today.. Problem Ischemic heart disease (850553382) Ischemic heart disease (I25.9) Active confirmed He has had n o chest pain or angina since his last visit. Problem 9659152398084669 Arthritis of left shoulder region (M19.012) Active confirmed He has been to several orthopedist and had injections in been treated with Lyrica in the past. The shoulder is not a significant problem at this time. Problem 752228194 History of torn meniscus of left knee (Z87.828) Active confirmed He had surgery in the past and now able to walk without pain. Problem 74737974 Narcotic dependence (F11.20) Active confirmed He continues on Suboxone and is going to his meetings and attending his therapy sessions. Is doing well with his recovery. Problem 143600526 Low serum vitamin B12 (E53.8) Active confirmed His vitamin B12 level was very low and he is now on oral supplementatio n. I have ordered an intrinsic factor antibody. Encounters Encounter Location Date Provider Diagnosis Azael Benton III, MD [address] [place] [address] [address] [place] [id number] 08/27/2024 Azael Benton III, MD [address] [place] [address] [address] [place] [id number] 09/03/2024 Azael Benton Benign prostatic hyperplasia, unspecified whether lower urinary tract symptoms present N40.0 Azael Benton III, MD [address] [place] [address] [address] [place], [place] [id number] 09/04/2024 Azael Benton Assessments Encounter Date Diagnosis (ICD Code) Assessment Notes Treatment Notes Treatment Clinical Notes 09/03/2024 Benign prostatic hyperplasia, unspecified whether lower urinary tract symptoms present (ICD-10 - N40.0) His symptoms of nocturia are stable. He has had no infections and rises once a night. Current therapy was continued. We have discussed lifestyle modification as a way of reducing nocturia. Plan Of Treatment Pending Test Test Name Order Date PROFILE, FASTING (COMPREHENSIVE METABOLI C) 09/18/2023 PROFILE, FASTING (COMPREHENSIVE METABOLI C) 11/22/2018 PROFILE, FASTING (COMPREHENSIVE METABOLI C) 06/18/2023 PROFILE, FASTING (COMPREHENSIVE METABOLI C) 04/23/2018 PROFILE, FASTING (COMPREHENSIVE METABOLI C) 08/07/2022 PROFILE, FASTING (COMPREHENSIVE METABOLI C) 12/24/2020 PROFILE, FASTING (COMPREHENSIVE METABOLI C) 11/05/2019 PROFILE, FASTING (COMPREHENSIVE METABOLI C) 06/18/2019 PROFILE, FASTING (COMPREHENSIVE METABOLI C) 02/21/2019 PROFILE, RANDOM (COMPREHENSIVE METABOLIC ) 03/31/2020 HEMOGLOBIN A1C (GLYCOHEMOGLOBIN) 019 HEMOGLOBIN A1C (GLYCOHEMOGLOBIN) 019 HEMOGLOBIN A1C (GLYCOHEMOGLOBIN) 019 HEMOGLOBIN A1C (GLYCOHEMOGLOBIN) 023 HEMOGLOBIN A1C (GLYCOHEMOGLOBIN) 018 HEMOGLOBIN A1C (GLYCOHEMOGLOBIN) 022 HEMOGLOBIN A1C (GLYCOHEMOGLOBIN) 021 HEMOGLOBIN A1C (GLYCOHEMOGLOBIN) 020 LIPID PANEL 11/05/2019 LIPID PANEL 06/18/2019 LIPID PANEL 02/21/2019 LIPID PANEL 11/22/2018 LIPID PANEL 06/18/2023 LIPID PANEL 04/23/2018 LIPID PANEL 08/07/2022 LIPID PANEL 12/24/2020 LIPID PANEL 03/31/2020 PSA, TOTAL 09/18/2023 PSA, TOTAL 02/21/2019 PSA, TOTAL 04/23/2018 MICROALBUMIN, RANDOM 06/18/2019 MICROALBUMIN, RANDOM 09/18/2023 MICROALBUMIN, RANDOM 06/18/2023 CBC w DIFF 11/05/2019 CBC w DIFF 06/18/2019 CBC w DIFF 02/21/2019 CBC w DIFF 09/18/2023 CBC w DIFF 11/22/2018 CBC w DIFF 08/07/2022 CBC w DIFF 12/24/2020 CBC w DIFF 03/31/2020 CBC w DIFF 06/18/2023 CBC w DIFF 04/23/2018 ROUTINE CULTURE 05/26/2020 Stress Test 09/19/2019 VITAMIN D 25-OH TOTAL 08/07/2022 Lipid Panel 09/18/2023 Vitamin B12 01/13/2022 Hemoglobin A1c 09/18/2023 Insurance Providers Payer Name Payer Address Payer Phone Subscriber Number Group Number Insured Name Patient Relationship to Insured Coverage Start Date Coverage End Date [address] [place] [phone] [id number] CARTER OWEN Self - patient is the insured In-House [address] [place] [address] CARTER OWEN Self - patient is the insured Medical (General) History Medical History History ICD Code Anxiety F41.9 Depression, unspecified depression type F32.9 Tremors of nervous system R25.1 Enlarged prostate N40.0 morbid obesity moderately severe obstructive sleep apne a. 2017 adhesive capsulitis left shoulder with i njections adult-onset diabetes mellitus essential hypertension mixed hyperlipidemia migraine aura without had a torn left medial meniscus 2006 migraines, or without had a former smoker Tubular adenoma Surgical History Surgery Date(Month/Year) Gastric sleeve bariatric surgery [facility] 12/2021 colonoscopy 11/[address] Isaura ONEAL 11/2017 neck surgery for nerve compression Dr. Rg Young 04/21/2016 discectomy with insertion of cadaver dis c 12/24/2014 arthroscopic right knee surgery, medial meniscectomy 2006 vasectomy 03/2007
--- OUTSIDE RECORDS SUMMARY | 2024-12-03 12:06 | XMS_ITS ---
Author Organization Azael Benton III, MD Address [address] [place] [address] Care Team Providers Care Replenisher Name Role Phone Azael Benton Primary Care Provider Allergies Allergen (clinical drug ingredient) Drug/Non Drug Allergy documented on EMR Reaction Allergy Type Onset Date Status No Known Drug Allergy Unknown Drug Allergy Active REASON FOR VISIT Hospital Follow up Medications Medication SIG (Take, Route, Frequency, Duration) Notes Start Date End Date Status Primidone 50 MG TAKE 1/2 TABLET BY MOUTH EVERY DAY AT BEDTIME Oral Active lamoTRIgine 100 MG 1 tablet Orally Once a day Active Citalopram Hydrobromide 40 MG take 1 tablet by mouth every day Orally Once a day Active metFORMIN HCl 500 MG as directed Orally 2 tablets twice a day Active Simvastatin 20 MG 1 tablet Orally Once a day Active Lisinopril 2.5 MG 1 tablet Orally Once a day Active Metoprolol Succinate ER 100 MG 1 tablet Orally Once a day Active buPROPion HCl ER (XL) 150 MG take 3 tablets by mouth every day Orally Once a day Active Tamsulosin HCl 0.4 MG TAKE 1 CAPSULE BY MOUTH TWICE A DAY Active Lantus SoloStar 100 UNIT/ML as directed Subcutaneous Active Suboxone 8-2 MG 1 film under the tongue and allow to dissolve Sublingual three times a day tid (3 a day) Active Advocate Lancets - as directed - Lancet s check glucose twice a day 09/01/2019 Active FreeStyle Lite - as directed use as directed use to test blood sugars twice a day 09/08/2019 Active FreeStyle Lite Test - as directed In Vit ro use with glucometer to test blood sugars twice a day 09/08/2019 Active SUMAtriptan Succinate 100 MG 1 tablet as needed Orally Once a day Active Social History Tobacco Use: Social History Observation Description Date Details (start date - stop date) Former Smoker NA - NA Sex Assigned At : Social History Observation Description Sex Assigned At Male Tobacco Use/Smoking Question Answer Notes Patient is a former smoker How long has it been since you last smoked? > 10 years Additional Findings: Tobacco Non-User Ex-cigaret te smoker Encounters Encounter Location Date Provider Diagnosis Azael Benton III, MD [address] [place] [address] [address], [place] [id number] 09/03/2024 Azael Benton Essential hypertensi on I10 and Benign prostatic hyperplasia, unspecified whether lower urinary tract symptoms present N40.0 Assessments Encounter Date Diagnosis (ICD Code) Assessment Notes Treatment Notes Treatment Clinical Notes 09/03/2024 Essential hypertension (ICD-10 - I10) His blood pressure was stable at 128/82 on his last visit. We reviewed his sodium restriction and his weight loss strategy. 09/03/2024 Benign prostatic hyperplasia, unspecified whether lower urinary tract symptoms present (ICD-10 - N40.0) His symptoms of nocturia are stable. He has had no infections and rises once a night. Current therapy was continued. We have discussed lifestyle modification as a way of reducing nocturia. Plan Of Treatment Medication Medication Name Sig Start Date Stop Date Notes Primidone 50 MG TAKE 1/2 TABLET BY M OUTH EVERY DAY AT BEDTIME Oral lamoTRIgine 100 MG 1 tablet Orally Once a day Citalopram Hydrobromide 40 MG take 1 tablet by mouth every day Orally Once a day metFORMIN HCl 500 MG as directed Orally 2 tablets twice a day Simvastatin 20 MG 1 tablet Orally Once a day Lisinopril 2.5 MG 1 tablet Orally Once a day Metoprolol Succinate ER 100 MG 1 tablet Orally Once a day buPROPion HCl ER (XL) 150 MG take 3 tablets by mouth every day Orally Once a day Tamsulosin HCl 0.4 MG TAKE 1 CAPSULE BY MOUTH TWICE A DAY Lantus SoloStar 100 UNIT/ML as directed Subcutaneous Suboxone 8-2 MG 1 film under the ton juan and allow to dissolve Sublingual three times a day tid (3 a day) Advocate Lancets - as directed - Lancet s check glucose twice a day 09/01/2019 FreeStyle Lite - as directed use as directed use to test blood sugars twice a day 09/08/2019 FreeStyle Lite Test - as directed In Vit ro use with glucometer to test blood sugars twice a day 09/08/2019 SUMAtriptan Succinate 100 MG 1 tablet as needed Orally Once a day Progress Notes * CARTER MYERSDOB: [birth year] (59 yo M)Acc No.[id number]:09/03/2024 Patient:?CARTER MYERS Provider:?Azael Benton MD :1965???Age:58 Y???Sex:Male Bairon e:09/03/2024 Address:[address] [place] [address] [id number] Subjective: * Chief Complaints: * ???1. Hospital Follow up. * HPI: ???COVID-19 Screening:?Questions?Have you had any new onset fever, chills, cough, congestion, sore throat, shortness of breath, muscle aches??No * ROS:?General/Constitutional:?pain?only normal aches and pains.?Chills?denies.?Fatigue?admits.?Fever?denies.?ENT:?Decreased hearing?denies.?Respiratory:?Cough?denies.?Cardiovascular:?Chest pain with exertion?denies.?Dyspnea on exertion?denies.?Shortness of breath?denies.?Gastrointestinal:?Constipation?denies.?Decreased appetite?denies.?Diarrhea?denies.?Heartburn?denies.?Nausea?denies.?Rectal bleeding?denies.?Vomiting?denies.?Hematology:?bruising?denies.?petechiae?denies.?Swollen glands?none have been noted.?Genitourinary:?Frequent urination?denies.?Musculoskeletal:?Muscle aches?denies.?Painful joints?denies.?Sciatica?denies.?Weakness?denies.?Skin:?Itching?denies.?Rash?denies.?Skin lesion(s)?denies.?Neurologic:?Difficulty speaking?denies.?Dizziness?denies.?Headache?denies.?Low back pain?denies.?Psychiatric:?Depressed mood?denies.? * Medical History:?Anxiety, De pression, unspecified depression type, Tremors of nervous system, Enlarged prostate, Morbid obesity, Moderately severe obstructive sleep apnea. 2017, Adhesive capsulitis left shoulder with injections, Adult-onset diabetes mellitus, Essential hypertension, Mixed hyperlipidemia, Migraine aura without had a, Torn left medial meniscus 2005, Migraines, or without had a, Former smoker, Tubular adenoma. * Surgical History:?vasectomy 03/2007, arthroscopic right knee surgery, medial meniscectomy 2005, discectomy with insertion of cadaver disc 12/24/2014, neck surgery for nerve compression Dr. Bagley 04/21/2016, left shoulder surgery NEODr. Isaura Barth 11/2017, colonoscopy 11/2018, Gastric sleeve bariatric surgery [facility] 12/2021. * Hospitalization/Major Diagno stic Procedure:?Denies Past Hospitalization. * Family History:?Father: layton mckinley 73 yrs, back surgeries, hyperlipidemia,, diagnosed with HTN.?Mother: 76 yrs, cad, mi, diabetes type 2, depression, diagnosed with DM.?Maternal Grand Mother: , diagnosed with Cancer, DM.?Maternal aunt: alive, diagnosed with DM.?3 sister(s) - healthy. 2 son(s) , 1 daughter(s) - healthy. .? A maternal grandmother who has , had diabetes and some form of cancer. His sisters are alive and well. One of his son has Asperger's syndrome. His children are otherwise healthy and well. This patient has a personal history of depression and anxiety and substance use disorder. His mother has a history of depression. He is not aware of any other family history of mental illness or substance use disorder or addiction. * Social History:?Tobacco Use:?Tobacco Use/Smoking?Patient is a?former smoker ?How long has it been since you last smoked??> 10 years ?Additional Findings: Tobacco Non-User?Ex-cigarette smoker ???He was born in [place], [place]. He has been to Latisha for 28 years. He has a daughter, Cassandra who is 28 and 2 younger sons Alec and Agustin. He works in [place], [place] for the [employer]. He has no toxic exposures. He has not a Yazidism. He is using electronic cigarette. * Medications:?Taking lamoTRIg ine 100 MG Tablet 1 tablet Orally Once a day , Taking Citalopram Hydrobromide 40 MG Tablet take 1 tablet by mouth every day Orally Once a day , Taking Primidone 50 MG Tablet TAKE 1/2 TABLET BY MOUTH EVERY DAY AT BEDTIME Oral , Taking metFORMIN HCl 500 MG Tablet as directed Orally 2 tablets twice a day , Taking FreeStyle Lite - Device as directed use as directed use to test blood sugars twice a day , Taking Suboxone 8-2 MG Film 1 film under the tongue and allow to dissolve Sublingual three times a day , Notes to Pharmacist: tid (3 a day), Taking Advocate Lancets - Miscellaneous as directed - Lancets check glucose twice a day , Taking FreeStyle Lite Test - Strip as directed In Vitro use with glucometer to test blood sugars twice a day , Taking SUMAtriptan Succinate 100 MG Tablet 1 tablet as needed Orally Once a day , Taking Tamsulosin HCl 0.4 MG Capsule TAKE 1 CAPSULE BY MOUTH TWICE A DAY , Taking Lantus SoloStar 100 UNIT/ML Solution Pen-injector as directed Subcutaneous , Taking Lisinopril 2.5 MG Tablet 1 tablet Orally Once a day , Taking Metoprolol Succinate ER 100 MG Tablet Extended Release 24 Hour 1 tablet Orally Once a day , Taking buPROPion HCl ER (XL) 150 MG Tablet Extended Release 24 Hour take 3 tablets by mouth every day Orally Once a day , Taking Simvastatin 20 MG Tablet 1 tablet Orally Once a day , Medication List reviewed and reconciled with the patient * Allergies:?No Known Drug All ergy. Objective: * Vitals:? * Examination: ???General Examination: ?GENERAL APPEARANCE:?pleasant, well nourished, well developed, in no acute distress, calm and relaxed.?HEAD:?atraumatic, normocephalic.?EYES:?eomi, perrla, anicteric, conjugate.?EARS:?normal.?NOSE:?septum intact.?ORAL CAVITY:?normal, unremarkable.?NECK/THYROID:?no jugular venous distention, no carotid bruit, thyroid normal.?LYMPH NODES:?no enlarged lymph nodes,spleen normal.?SKIN:?no suspicious lesions, anicteric.?HEART:?no clicks, gallops, murmurs, or rubs, regular rhythm, S1, S2 normal, no s3, or vascular bruits.?LUNGS:?clear to auscultation .?BREASTS:??no masses palpable bilaterally.?ABDOMEN:?bowel sounds normal, no ascites, no organomegaly, no mass.?RECTAL EXAM:?not examined.?MUSCULOSKELETAL:?extremities unremarkable, no clubbing, cyanosis or edema.?PERIPHERAL PULSES:?normal.?NEUROLOGIC:?alert and oriented, cranial nerves 2-12 grossly intact, deep tendon reflexes 2+ symmetrical, motor strength normal upper and lower extremities, sensory exam intact.?PSYCH:?alert, oriented.? Assessment: * Assessment: 1.?Essential hypertension - I10???Notes :His blood pressure was stable at 128/82 on his last visit. We reviewed his sodium restriction and his weight loss strategy.???2.?Benign prostatic hyperplasia, unspecified whether lower urinary tract symptoms present - N40.0???Notes :His symptoms of nocturia are stable. He has had no infections and rises once a night. Current therapy was continued. We have discussed lifestyle modification as a way of reducing nocturia.??? Plan: * Treatment: 2.?Benign prostatic hyperpla louise, unspecified whether lower urinary tract symptoms present? Continue FreeStyle Lite Device, -, as directed, use as directed, use to test blood sugars twice a day;?Continue Suboxone Film, 8-2 MG, 1 film under the tongue and allow to dissolve, Sublingual, three times a day, Notes to Pharmacist: tid (3 a day);?Continue Advocate Lancets Miscellaneous, -, as directed, -, Lancets check glucose twice a day;?Continue FreeStyle Lite Test Strip, -, as directed, In Vitro, use with glucometer to test blood sugars twice a day;?Continue SUMAtriptan Succinate Tablet, 100 MG, 1 tablet as needed, Orally, Once a day;?Continue Tamsulosin HCl Capsule, 0.4 MG, TAKE 1 CAPSULE BY MOUTH TWICE A DAY;?Continue Lantus SoloStar Solution Pen-injector, 100 UNIT/ML, as directed, Subcutaneous;?Continue Lisinopril Tablet, 2.5 MG, 1 tablet, Orally, Once a day;?Continue Metoprolol Succinate ER Tablet Extended Release 24 Hour, 100 MG, 1 tablet, Orally, Once a day;?Continue buPROPion HCl ER (XL) Tablet Extended Release 24 Hour, 150 MG, take 3 tablets by mouth every day, Orally, Once a day;?Continue Simvastatin Tablet, 20 MG, 1 tablet, Orally, Once a day.?? 3.?Others? Continue lamoTRIgine Tablet, 100 MG, 1 tablet, Orally, Once a day;?Continue Citalopram Hydrobromide Tablet, 40 MG, take 1 tablet by mouth every day, Orally, Once a day;?Continue Primidone Tablet, 50 MG, TAKE 1/2 TABLET BY MOUTH EVERY DAY AT BEDTIME, Oral.?? * Images: * The named appointment provid er may or may not be the originator of this progress note, and it is not deemed complete until electronically signed by the appointment provider. Sign off status: Pending * Provider:?Azael Benton MD Date:?08/17 Generated for Sweta gilbert/Alyse/eTransmitting on:?12/03/2024 12:05 PM EDT History and Physical Notes * HPI (History of Present Illness) Category Sub-Category Detail Notes COVID-19 Screening Questions Have you had any new onset fever, chills, cough, congestion, sore throat, shortness of breath, muscle aches?: No Examination Category Sub-Category Detail Notes General Examination GENERAL APPEARANCE: pleasant , well nourished, well developed, in no acute distress, calm and relaxed HEAD: atraumatic, normocep halic EYES: eomi, perrla, anicte cholo, conjugate EARS: normal NOSE: septum intact NECK/THYROID: no jugular venous di stention, no carotid bruit, thyroid normal HEART: no clicks, gallops, murmurs, or rubs, regular rhythm, S1, S2 normal, no s3, or vascular bruits LUNGS: clear to auscultatio n ABDOMEN: bowel sounds normal, no ascites, no organomegaly, no mass NEUROLOGIC: alert and oriented, cranial nerves 2-12 grossly intact, deep tendon reflexes 2+ symmetrical, motor strength normal upper and lower extremities, sensory exam intact SKIN: no suspicious lesion s, anicteric PERIPHERAL PULSES: normal BREASTS: no masses palpable b ilaterally MUSCULOSKELETAL: extremities unremark able, no clubbing, cyanosis or edema LYMPH NODES: no enlarged lymph no jaylon,spleen normal RECTAL EXAM: not examined PSYCH: alert, oriented ORAL CAVITY: normal, unremarkable
--- OUTSIDE RECORDS SUMMARY | 2024-12-03 12:06 | XMS_ITS | Patient Health Record ---
Author Organization [facility] Address [address] [place] [id number] Care Team Providers Care Pneumatic Tube Repairer Name Role Phone Chetan STEELE, Azael Primary Care Provider Unavailab Abilio Castelan Jr Unavailable [phone] Allergies No Known Allergies Reason For Referral No Information Medications Medication SIG (Take, Route, Frequency, Duration) Notes Start Date End Date Status Metoprolol Succinate ER 100 MG TAKE 1 TABLET BY MOUTH EVERY DAY Oral Once a day Active buPROPion HCl ER (XL) 150 MG TAKE 3 TABLETS BY MOUTH EVERY DAY Oral Once a day Active SUMAtriptan Succinate 100 MG TAKE 1 TABLET BY MOUTH EVERY DAY NEEDED Oral Once a day as needed Active lamoTRIgine 100 MG TAKE 1 TABLET BY MICHAEL TH EVERY DAY Oral Once a day Active Citalopram Hydrobromide 20 MG TAKE 1 TABLET BY MOUTH EVERY DAY Orally Once a day Active Suboxone 8-2 MG 1 tablet under the tongue and allow to dissolve Sublingual Once a day Active Immunizations Vaccine Route Administration Date Status Comme nts Influenza Unknown 09/04/2018 Refused Influenza Unknown 06/14/2022 Refused Influenza Unknown 06/27/2023 Refused Social History Tobacco [...] Problem Status W/U Status Risk Notes Problem 692114543 Colon cancer screening (Z12.11) Active confirmed Problem 96338021 Rectal bleeding (K62.5) Active confirmed Problem 888163660 Abnormal findings in stool (R19.5) Active confirmed Problem 35911541 Diarrhea, unspecified type (R19.7) Active confirmed Problem [id number] 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 drugs (Z79.84) Active confirmed Problem 305660965 Irritable bowel syndrome with predominant constipation (K58.1) Active confirmed Plan Of Treatment Pending Test Test Name Order Date LIVER PROFILE 05/29/2023 LIPASE 05/29/2023 CBC w/o DIFF 05/29/2023 STOOL WBC 05/29/2023 OVA & PARASITES (O&P) 05/29/2023 CALPROTECTIN, STOOL 05/29/2023 GI PANEL 05/29/2023 Future Test Test Name Order Date COLONOSCOPY 09/04/2018 COLONOSCOPY 06/14/2022 Insurance Providers Payer Name Payer Address Payer Phone Subscriber Number Group Number Insured Name Patient Relationship to Insured Coverage Start Date Coverage End Date [facility] [address] [place] [phone] [id number] CARTER OWEN Self - patient is the insured Medical (General) History Medical History History ICD Code hypertension diabetes mellitus, diet controlled since weight loss hyperlipidemia BPH migraines anxiety/depression obstructive sleep apnea, not on CPAP opiate dependence, currently on Suboxone elevated BMI Ischemic colitis 06/08, 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 Ten-year followup Surgical History Surgery Date(Month/Year) shoulder surgery neck surgery x2 Laparoscopic sleeve gastrectomy with gas tropexy 01/06
--- OUTSIDE RECORDS SUMMARY | 2024-12-03 12:06 | XMS_ITS ---
Author Organization Azael Benton III, MD Address [address] [place] [address] Care Team Providers Care Medical Assistant Secretary Name Role Phone Azael Benton Primary Care Provider REASON FOR VISIT Rx Refill Medications Medication SIG (Take, Route, Frequency, Duration) Notes Start Date End Date Status SUMAtriptan Succinate 100 MG 1 tablet Orally Once a day for 90 days Active Social History Sex Assigned At : Social History Observation Description Sex Assigned At Male Encounters Encounter Location Date Provider Diagnosis Azael Benton III, MD [address] [place] [address] [place] [address] 09/03/2024 Azael Benton Benign prostatic hyperplasia, unspecified [...] Name Sig Start Date Stop Date Notes SUMAtriptan Succinate 100 MG 1 tablet Or ally Once a day for 90 days Progress Notes * LOUIS TAVIAANDERDOB: [birth year] (58 yo M)Acc No.[id number]:09/03/2024 Patient:?LOUISCARTER :1965???Age:58 Y???Sex:Male Address:[address] [place] [address] [place], [address] * Refills? Refill SUMAtriptan Succinate Tablet, 100 MG, Orally, 90 Tablet, 1 tablet, Once a day, 90 days, Refills=3 * true * Date:? Generated for Sweta gilbert/Alyse/Marci on:?12/03/2024 12:05 PM EDT
--- OUTSIDE RECORDS SUMMARY | 2024-12-03 12:06 | XMS_ITS ---
Author Organization Azael Benton III, MD Address [address] [place] [address] Care Team Providers Care Home Designer Name Role Phone Azael Benton Primary Care Provider [phone] REASON FOR VISIT Discharge Social History Sex Assigned At : Social History Observation Description Sex Assigned At Male Encounters Encounter Location Date Provider Diagnosis Azael Benton III, MD [address] [place] [address] [place] [address] 09/04/2024 Azael Benton Plan Of Treatment No Information Progress Notes * TAVIA MYERSANDERDOB: [birth year] (58 yo M)Acc No.[id number]:09/04/2024 Patient:?HAROLDOCARTER ESTRELLA :1965???Age:58 Y???Sex:Male Address:[address] [place] [address] [place], [address] * true * Date:? Generated for Printi ng/Fameaghang/eTransmitting on:?12/03/2024 12:06 PM EDT
== END 2024-12-03 10:34 | disposition home or self-care (01) ==
LOC: HO.HBS 10:21
PROVIDERS: PCP Internal Medicine Medical Oncology; Visit Provider Physician Assistant Surgical
DX: E66.811 Obesity, class 1 (principal); Z68.32 Body mass index [BMI] 32.0-32.9, adult; Z90.3 Acquired absence of stomach [part of]; Z98.84 Bariatric surgery status
CPT/HCPCS: 99214

== ENCOUNTER 2025-01-30 11:17 | Outpatient (AMB) | payer OTHER, SELFPAY ==
--- NOTE | 2025-01-30 11:29 | A.OFFVIS_ITS ---
Vital Signs 01/30/25 11:30 Height 5 ft 11 in Weight 238 lb BMI 33.2 Pulse 105 H Pulse Source Pulse Oximeter Pulse Oximetry (%) 98 Oxygen Delivery Method Room Air Intake Visit Reasons: MAT Allergies Seasonal Allergies Allergy (Intermediate, Verified 08/17/23 13:13) Runny Nose HPI HPI MAT: Details: He is doing well on three strips a day and is seen every three months. He has reconciled with his exwife and has grandchild Ann and another grandchild on the way. He feels well and is keeping off the weight he lost. [facility] Medical History Tremor Liver fibrosis Steatosis, liver DDD (degenerative disc disease), cervical Lower extremity edema Hyperlipidemia Hypertension Vitamin B1 deficiency Vitamin D deficiency Noncompliance with CPAP treatment AUDRA (obstructive sleep apnea) Preoperative examination Shortness of breath BMI 40.0-44.9, adult Benign prostatic hyperplasia Depression Anxiety Type 2 diabetes mellitus Migraine Occasional tremors Shortness of breath BMI 45.0-49.9, adult Morbid obesity Surgical History History of colonoscopy Hx of knee surgery Hx of neck surgery Hx of shoulder surgery S/P appendectomy S/P laparoscopic sleeve gastrectomy Family History Father Diabetes Mother Diabetes Sister No problems noted. Sister Depression Sister No problems noted. Son No problems noted. Son No problems noted. Daughter No problems noted. Social History Household Members: None Housing: Apartment Are you a primary customer care team coach to a significant other at home: No Do you presently have visiting nurse or other home services: No Alcohol intake: current Alcohol intake frequency: does not drink Patient Tobacco Use Status: Former Tobacco user Tobacco use type: Cigarette e-Cigarette/Vaping Use: Currently Using service: No Current occupational status: employed Review of Systems Const All systems reviewed & are unremarkable except as noted in HPI and below Physical Exam Vital Signs: Last Vital Signs Pulse 105 H 01/30/25 11:30 Pulse Ox 98 01/30/25 11:30 Oxygen Delivery Method Room Air 01/30/25 11:30 BMI result Body Mass Index 33.2 Assessment & Plan Assessment & Plan (1) Opioid use disorder, mild, in sustained remission, on maintenance therapy, abuse: Comment: He is stable on 3 a day and wishes to remain for now. Code(s): F11.11 - Opioid abuse, in remission Category: Medical Plan 3 a day written for. See in three months. No depression at this time. Medications: New buprenorphine-naloxone 8-2 mg (Suboxone) place 1 film on inside of (each) cheek 3 film sublingual Q24H 90 ea 2RF 30 days Coding Level of Care Code Est Pt Level 3 (25670) Diagnoses Opioid use disorder, mild, in sustained remission, on maintenance therapy, abuse F11.11
[2025-01-30 11:30] VITALS: PULSE 105; O2SAT 98; BMI 33.2
--- OUTSIDE RECORDS SUMMARY | 2025-01-30 11:40 | XMS_ITS | Clinical Summary ---
Author Organization [facility] Address [address] [place] [address] Care Team Providers Care Machine Heel Seat Fitter Name Role Phone Unavailable Primary Care Provider Unavailabl e Social History Tobacco Use Types Packs/Day Years Used Date Smoking Tobacco: Never Assessed Sex and Gender Information Value Date Recorded Sex Assigned at Not on file Gender Identity Not on file Sexual Orientation Not on file Plan of Treatment Not on file
== END 2025-01-30 12:50 | disposition home or self-care (01) ==
PROVIDERS: PCP Internal Medicine Medical Oncology; Visit Provider Internal Medicine
DX: F11.11 Opioid abuse, in remission (principal)
CPT/HCPCS: 99213

== ENCOUNTER 2025-04-29 13:03 | Outpatient (AMB) | payer OTHER, SELFPAY ==
--- NOTE | 2025-04-29 13:02 | MHC.OFFVIS ---
Vital Signs 04/29/25 13:07 Height 5 ft 11 in Weight 229 lb BMI 31.9 Pulse 81 Pulse Source Pulse Oximeter Pulse Oximetry (%) 98 Oxygen Delivery Method Room Air Intake Visit Reasons: mat visit Allergies Seasonal Allergies Allergy (Intermediate, Verified 04/29/25 13:08) Runny Nose Medication List - Last Reconciled 04/29/25 by Fariba Egan NP-C buprenorphine-naloxone 8-2 mg (Suboxone) 3 film sublingual Q24H 30 days bupropion HCl XL 450 mg PO DAILY citalopram 40 mg PO DAILY insulin glargine (Lantus Solostar U-100 Insulin) 22 units subcut QPM insulin lispro (Humalog KwikPen (U-100) Insulin) 1 sliding scale dose subcut USEASDIRECTD lamotrigine 100 mg PO DAILY metformin 1,000 mg PO BID propranolol ER 160 mg PO DAILY tirzepatide (Mounjaro) 2.5 mg subcut QWEEK HPI Comments Details: A 59-year-old male presents for follow-up r/t RUTH in sustained remission with use of buprenorphine-naloxone. Denies use of opiates, alcohol, or other substances does report vaping and is actively reducing to minimal nicotine. [facility] Medical History Tremor Liver fibrosis Steatosis, liver DDD (degenerative disc disease), cervical Lower extremity edema Hyperlipidemia Hypertension Vitamin B1 deficiency Vitamin D deficiency Noncompliance with CPAP treatment AUDRA (obstructive sleep apnea) Preoperative examination Shortness of breath BMI 40.0-44.9, adult Benign prostatic hyperplasia Depression Anxiety Type 2 diabetes mellitus Migraine Occasional tremors Shortness of breath BMI 45.0-49.9, adult Morbid obesity Surgical History S/P laparoscopic sleeve gastrectomy S/P appendectomy History of colonoscopy Hx of shoulder surgery Hx of neck surgery Hx of knee surgery Family History Father Diabetes Mother Diabetes Sister No problems noted. Sister Depression Sister No problems noted. Son No problems noted. Son No problems noted. Daughter No problems noted. Social History Household Members: None Housing: Apartment Are you a primary child daycare worker to a significant other at home: No Do you presently have visiting nurse or other home services: No Alcohol intake: current Alcohol intake frequency: does not drink Patient Tobacco Use Status: Former Tobacco user Tobacco use type: Cigarette e-Cigarette/Vaping Use: Currently Using service: No Current occupational status: employed Review of Systems Const All systems reviewed & are unremarkable except as noted in HPI and below Physical Exam Vital Signs: Last Vital Signs Pulse 81 04/29/25 13:07 Pulse Ox 98 04/29/25 13:07 Oxygen Delivery Method Room Air 04/29/25 13:07 BMI result Body Mass Index 31.9 Const General: cooperative Orientation/consciousness: patient oriented x3 Limitations: no limitations Neuro General: patient oriented x3 Psych Appearance: well kempt Speech and movement: Normal speech and movement present Affect: normal affect Attitude: cooperative Thought process: Normal thought process present Thought content: Normal thought content present Insight: Good insight present (Psych) Judgement: Good judgement present (Psych) Assessment & Plan Assessment & Plan (1) Opioid use disorder, mild, in sustained remission, on maintenance therapy, abuse: Comment: He is stable on 3 a day and wishes to remain for now. Code(s): F11.11 - Opioid abuse, in remission Category: Medical Plan The plan of care is to continue with buprenorphine-naloxone 8-2 mg TID and follow up in 3 months. Medications: Refilled buprenorphine-naloxone 8-2 mg (Suboxone) place 1 film on inside of (each) cheek 3 film sublingual Q24H 90 ea 2RF 30 days Patient Instructions: - Continue with buprenorphine-naloxone as prescribed. - Call with questions, concerns, or to report side effects/new onset of symptoms to [facility]. or concerns. - The patient verbalized understanding and agreed with plan of care. Coding Level of Care Code Est Pt Level 3 (91303) Diagnoses Opioid use disorder, mild, in sustained remission, on maintenance therapy, abuse F11.11
[2025-04-29 13:07] VITALS: PULSE 81; O2SAT 98; BMI 31.9
--- OUTSIDE RECORDS SUMMARY | 2025-04-29 13:34 | XMS_ITS | Clinical Summary ---
[facility] Address [address] [place] [address] Care Team Providers Care Registered Respiratory Technician Name Role Phone Unavailable Primary Care Provider Unavailabl e Social History Tobacco Use Types Packs/Day Years Used Date Smoking Tobacco: Never Assessed Sex and Gender Information Value Date Recorded Sex Assigned at Not on file Gender Identity Not on file Sexual Orientation Not on file Plan of Treatment Not on file
== END 2025-04-29 13:17 | disposition home or self-care (01) ==
PROVIDERS: PCP Internal Medicine Medical Oncology; Visit Provider Clinical Nurse Specialist Psychiatric/Mental Health
DX: F11.11 Opioid abuse, in remission (principal)
CPT/HCPCS: 99213

== ENCOUNTER 2025-07-29 13:01 | Outpatient (AMB) | payer OTHER, SELFPAY ==
[2025-07-29 13:04] VITALS: BP 120/70; PULSE 96; O2SAT 99; BMI 31.7
--- NOTE | 2025-07-29 13:04 | A.OFFVIS_ITS ---
Vital Signs 07/29/25 13:04 Height 5 ft 11 in Weight 227 lb BMI 31.7 BP 120/70 Blood Pressure Location Lt brachial Position Sitting Pulse 96 Pulse Source Pulse Oximeter Pulse Oximetry (%) 99 Oxygen Delivery Method Room Air Intake Visit Reasons: mat visit Allergies Seasonal Allergies Allergy (Intermediate, Verified 07/29/25 13:08) Runny Nose HPI Comments Details: A 59-year-old male presents for a follow-up visit r/t RUTH in sustained remission with buprenorphine-naloxone 8-2 mg TID. Denies use of opiates, alcohol, and other substances. Acknowledges vaping for nicotine and is utilizing risk reduction activity by decreasing nicotine concentration to the lowest level. Engages in conversation re: Looking forward to spending quality time at home with family for the holidays. [facility] Medical History Tremor Liver fibrosis Steatosis, liver DDD (degenerative disc disease), cervical Lower extremity edema Hyperlipidemia Hypertension Vitamin B1 deficiency Vitamin D deficiency Noncompliance with CPAP treatment AUDRA (obstructive sleep apnea) Preoperative examination Shortness of breath BMI 40.0-44.9, adult Benign prostatic hyperplasia Depression Anxiety Type 2 diabetes mellitus Migraine Occasional tremors Shortness of breath BMI 45.0-49.9, adult Morbid obesity Surgical History S/P laparoscopic sleeve gastrectomy S/P appendectomy History of colonoscopy Hx of shoulder surgery Hx of neck surgery Hx of knee surgery Family History Father Diabetes Mother Diabetes Sister No problems noted. Sister Depression Sister No problems noted. Son No problems noted. Son No problems noted. Daughter No problems noted. Social History Household Members: None Housing: Apartment Are you a primary healthcare economics consultant to a significant other at home: No Do you presently have visiting nurse or other home services: No Alcohol intake: current Alcohol intake frequency: does not drink Patient Tobacco Use Status: Former Tobacco user Tobacco use type: Cigarette e-Cigarette/Vaping Use: Currently Using service: No Current occupational status: employed Review of Systems Const All systems reviewed & are unremarkable except as noted in HPI and below Physical Exam Vital Signs: Last Vital Signs Pulse 96 07/29/25 13:04 BP 120/70 07/29/25 13:04 Pulse Ox 99 07/29/25 13:04 Oxygen Delivery Method Room Air 07/29/25 13:04 BMI result Body Mass Index 31.7 Const General: cooperative Assessment & Plan Assessment & Plan (1) Opioid use disorder, mild, in sustained remission, on maintenance therapy, abuse: Code(s): F11.11 - Opioid abuse, in remission Category: Medical Plan: The plan of care is to continue with buprenorphine-naloxone 8-2 mg TID. Follow- up in 3 months or sooner if needed. Plan - Continue with buprenorphine-naloxone as prescribed. - Follow-up in 3 months or sooner if needed. - Call with questions, concerns, or to report side effects/new onset of symptoms to [facility] - The patient verbalized understanding and agreed with plan of care. Medications: Changed From buprenorphine-naloxone 8-2 mg (Suboxone) place 1 film on inside of (each) cheek 3 film sublingual Q24H 30 days 90 ea 2RF To buprenorphine-naloxone 8-2 mg (Suboxone) One film sublingually 3 times per day 1 film sublingual TID 90 ea 2RF 30 days Refilled buprenorphine-naloxone 8-2 mg (Suboxone) place 1 film on inside of (each) cheek 3 film sublingual Q24H 30 days 90 ea 2RF Coding Level of Care Code Est Pt Level 3 (02388) Diagnoses Opioid use disorder, mild, in sustained remission, on maintenance therapy, abuse F11.11
--- OUTSIDE RECORDS SUMMARY | 2025-07-29 15:44 | XMS_ITS | Clinical Summary ---
[facility] Address [address] [place] [address] Care Team Providers Care Parking Lot Attendant And Cashier Name Role Phone Unavailable Primary Care Provider Unavailabl e Social History Tobacco Use Types Packs/Day Years Used Date Smoking Tobacco: Never Assessed Sex and Gender Information Value Date Recorded Sex Assigned at Not on file Gender Identity Not on file Sexual Orientation Not on file Plan of Treatment Not on file
== END 2025-07-29 13:19 | disposition home or self-care (01) ==
LOC: HO.HCC 13:01
PROVIDERS: PCP Internal Medicine Medical Oncology; Visit Provider Clinical Nurse Specialist Psychiatric/Mental Health
DX: F11.11 Opioid abuse, in remission (principal)
CPT/HCPCS: 99213